=== PATIENT | female | born 1965 | race Two or more races ===

== ENCOUNTER 2021-03-12 15:58 | Outpatient (REF) | payer MEDICAID, SELFPAY ==
--- NOTE | ~2021-03-12 | MM_ITS ---
EXAMINATION: MM SCREENING DIGITAL BREAST TOMOSYNTHESIS, BILATERAL CLINICAL INFORMATION: Screening. Asymptomatic. The lifetime risk of breast cancer based on the Tyrer-Cuzick Model is 14%. COMPARISON: Mammography: 01/25/2020, 04/14/2017, 09/20/2016, 09/20/2016 TECHNIQUE: Digital breast tomosynthesis is performed in both the craniocaudal and mediolateral oblique views along with computer-aided detection (CAD). Synthesized 2D images are generated from the tomosynthesis. Additional bilateral CC views are provided. FINDINGS: There are scattered areas of fibroglandular density (ACR BI-RADS breast composition Category b). There are no significant masses, abnormal calcifications, or other abnormalities. Parenchymal pattern is similar to prior exams. No developing density. No significant changes. MM/MM tomosynthesis screening BI IMPRESSION: No significant changes from prior exams. ASSESSMENT: BI-RADS 1: Negative RECOMMENDATION: Routine annual mammography screening. This patient's information was entered into a reminder system with a target due date for their next mammogram.
== END 2021-03-12 15:59 | disposition home or self-care (01) ==
LOC: HO.MAMMO 15:58
PROVIDERS: PCP Internal Medicine; Visit Provider Internal Medicine
DX: Z12.31 Encounter for screening mammogram for malignant neoplasm of breast (principal)
CPT/HCPCS: 77063; 77067

== ENCOUNTER 2021-04-08 14:30 | Outpatient (RCR) | payer MEDICAID, SELFPAY ==
[2021-04-01 15:44] VITALS: BP 122/80; PULSE 83; O2SAT 95
--- NOTE | 2021-05-12 14:05 | MHC.PT.DC ---
[facility] [place] Office [place] Office [place] Office [address] Lance Yanes [address] [phone] F: [phone] F: [phone] F: [phone] F: [phone] Physical Therapy Discharge Report Diagnosis: This is a 56 yo female presenting to skilled PT with a script for vertigo. Date of Surgery: Date of Evaluation: 04/01/21 Date of Discharge: 05/12/21 Treatments to Date: 3 Cancellations to Date: 0 No Shows to Date: 0 Discharge Status: Discharge Summary: 04/08: Patient without any symptoms or nystagmus with canal reassessment. She reports good balance. Educated her to cancel next appointment if symptoms do not return again. Kept chart open for 30 days and then DC'd. Electronically signed by: Ellie Alvarez PT Please sign and return to therapist. Thank you for your referral.
== END 2021-05-12 14:04 | disposition home or self-care (01) ==
LOC: HO.PTCHIC 14:30
PROVIDERS: PCP Internal Medicine; Visit Provider Internal Medicine
DX: H81.13 Benign paroxysmal vertigo, bilateral (principal)
CPT/HCPCS: 95992; 97161

== ENCOUNTER 2021-07-29 09:37 | Outpatient (REF) | payer MEDICAID, SELFPAY ==
--- NOTE | ~2021-07-29 | XR_ITS ---
EXAMINATION: XR LUMBOSACRAL SPINE CLINICAL INFORMATION: Low back pain and left-sided sciatica. COMPARISON: None. TECHNIQUE: 3 views of the lumbosacral spine. FINDINGS: There is mild curvature of the lumbosacral spine to the right. Bone alignment is otherwise normal. Disc spaces are normal. There is lower lumbar spine facet arthritis. There is mild atherosclerotic calcification. XR/XR lumbar spine 2-3V IMPRESSION: Mild curvature of the lower lumbar spine to the right and facet arthritis.
== END 2021-07-29 09:38 | disposition home or self-care (01) ==
LOC: HO.XRAY 09:37
PROVIDERS: PCP Internal Medicine; Visit Provider Nurse Practitioner
DX: M54.42 Lumbago with sciatica, left side (principal)
CPT/HCPCS: 72100

== ENCOUNTER 2022-03-23 07:32 | Outpatient (REF) | payer MEDICAID, SELFPAY ==
--- NOTE | ~2022-03-23 | MM_ITS ---
EXAMINATION: MM SCREENING DIGITAL BREAST TOMOSYNTHESIS, BILATERAL CLINICAL INFORMATION: Screening. Asymptomatic. The lifetime risk of breast cancer based on the Tyrer-Cuzick Model is 14%. COMPARISON: Mammography: March 12, 2021 and studies dating back to April 08, 2014 TECHNIQUE: Digital breast tomosynthesis is performed in both the craniocaudal and mediolateral oblique views along with computer-aided detection (CAD). Synthesized 2D images are generated from the tomosynthesis. FINDINGS: There are scattered areas of fibroglandular density (ACR BI-RADS breast composition Category b). There are no significant masses, abnormal calcifications, or other abnormalities. MM/MM tomosynthesis screening BI IMPRESSION: No significant changes from prior exam. ASSESSMENT: BI-RADS 1: Negative RECOMMENDATION: Routine annual mammography screening. This patient's information was entered into a reminder system with a target due date for their next mammogram.
== END 2022-03-23 07:33 | disposition home or self-care (01) ==
LOC: HO.MAMMO 07:32
PROVIDERS: PCP Internal Medicine; Visit Provider Family Medicine
DX: Z12.31 Encounter for screening mammogram for malignant neoplasm of breast (principal)
CPT/HCPCS: 77063; 77067

== ENCOUNTER → 2022-04-21 10:13 | Outpatient (BNVA) | payer MEDICAID, SELFPAY | PROVIDERS: PCP Internal Medicine; Visit Provider Surgery | DX: K64.9 Unspecified hemorrhoids (principal); Z80.3 Family history of malignant neoplasm of breast | CPT/HCPCS: 46600; 99202 ==

== ENCOUNTER 2023-02-23 12:59 | Emergency (ER) | payer MEDICAID, SELFPAY ==
--- NOTE | ~2023-02-23 | XR_ITS ---
EXAMINATION: XR CHEST CLINICAL INFORMATION: Unremarkable. COMPARISON: None available. TECHNIQUE: Frontal view of the chest was obtained. FINDINGS: No significant abnormality is noted involving the heart, lungs, mediastinum, bony thorax or soft tissues. XR/XR chest 1V IMPRESSION: No acute cardiopulmonary process.
--- NOTE | 2023-02-23 13:01 | ECG_ITS ---
Test Reason : chest pain Blood Pressure : / mmHG Vent. Rate : 063 BPM Atrial Rate : 063 BPM P-R Int : 132 ms QRS Dur : 086 ms QT Int : 418 ms P-R-T Axes : 051 016 040 degrees QTc Int : 427 ms Normal sinus rhythm Normal ECG No previous ECGs available Referred By: Generic ED Physician Electronically Signed By:WANDA CONNER
[2023-02-23 13:44] VITALS: BP 125/81; PULSE 66; RESP 18; TEMP 36.8; O2SAT 99; BMI 29.5
--- NOTE | 2023-02-23 13:50 | ED.CHESTPAIN ---
HPI - Chest Pain General Chief Complaint: Chest Pain Stated Complaint: Chest Pain Time Seen by Provider: 02/23/23 16:09 Source: patient Mode of arrival: ambulatory Limitations: no limitations History of Present Illness HPI narrative: Patient is a 57-year-old female who presents emergency department for evaluation of chest pain and dizziness. Patient reports few days ago she was bending forward to lift a box when she suddenly developed a mild pain to the left anterior chest. This eventually resolved. This morning at 0600, she was again bending forward to lift up a been when she developed sudden onset of severe her squeezing type of pain to the left anterior chest. She then became dizzy and nauseous as well. The dizziness has improved at this time, she does report a history of vertigo but states that this felt different. Pain is still present at this time, reportedly 8/10, made worse with deep breathing and movement of the right arm. She denies any headache, neck pain, jaw pain, shortness of breath, difficulty breathing, vomiting, abdominal pain numbness or tingling of her extremities. Denies any URI symptoms. Related Data Home Medications Medication Instructions Recorded Confirmed atorvastatin 40 mg tablet 40 mg PO DAILY 04/21/22 04/21/22 dulaglutide 1.5 mg/0.5 mL 1.5 mg subcut QWEEK 04/21/22 04/21/22 subcutaneous pen injector ([facility]) metformin 1,000 mg tablet 1,000 mg PO 04/21/22 04/21/22 Allergies Allergy/AdvReac Type Severity Reaction Status Date / Time No Known Allergies Allergy Verified 02/23/23 13:44 [No Known Allergies*] Review of Systems Review of Systems: Constitutional : No Weight loss, No Fever, No Chills ENT/Mouth :? No sore throat, No Rhinorrhea Eyes: No Eye Pain, No Swelling Cardiovascular : pos Chest Pain, no SOB, no Dyspnea on Exertion, No Orthopnea, No Edema, No Palpitations Respiratory : No Cough, No Sputum Gastrointestinal : pos Nausea, No Vomiting, No Diarrhea, No abdominal Pain, No Hematochezia, No Melena Genitourinary : No Dysuria, No Urinary Frequency Musculoskeletal : No joint pain, No Myalgias, No Joint Swelling Skin : No Skin Lesions, No rash Neuro : No Weakness, No Numbness, No Dizziness, No Headache Psych : No Anxiety/Panic, No Depression Heme/Lymph: No Bruising, No Lymphadenopathy Endocrine : No Polyuria, No Polydipsia Yes all other systems are reviewed and are negative [facility] Past Medical History Attestation statement: The following information was validated with the patient. Source: old records reviewed Medical History Bleeding hemorrhoids Diabetes mellitus Family history of breast cancer Family History Family History (Updated 04/21/22 @ 10:22 by Anca Avila PATIENT TRANSPORT OFFICER) Mother Diabetes Social History Social History Alcohol intake: never Patient Tobacco Use Status: Former Tobacco user Tobacco use type: Cigarette Cigarettes Per Day: 2 Years Smoked: 39 Smoked in Last 30 Days: No Use of substances other than those prescribed or required for medical reasons: No Advance Directives: No Advance Directives Information Provided: No Patient : No Physical Exam Vital Signs: Vital Signs: Last Vital Signs Temp 97.5 F 02/23/23 17:32 Pulse 58 02/23/23 17:32 Resp 15 02/23/23 17:32 BP 125/76 02/23/23 17:32 Pulse Ox 97 02/23/23 17:32 O2 Del Method Room Air 02/23/23 17:32 BMI result Body Mass Index 29.5 Appearance: Alert.?Oriented to person, place and time. No acute distress.?Normal affect. Eyes: Pupils equal, round and reactive to light.? ENT: Pharynx normal.?? Neck: Normal inspection.? Neck supple.?? CVS: Heart sounds normal. Normal heart rate and rhythm.? Pulses normal.?? Respiratory: No respiratory distress.? Lung sounds clear to auscultation bilaterally?? Abdomen: Soft and non-tender. Normoactive bowel sounds. No pulsatile mass.?? Skin: Skin warm and dry.? Normal skin color.? Normal skin turgor.?? Extremities: No lower extremity edema.? No calf ttp? Neuro: Moves all extremities spontaneously. Sensation intact bilaterally. CN II-XII intact. No focal neuro deficits. Ambulates with normal steady gait. Course Course Course Narrative: RME: 57-year-old female with past medical history of diabetes complaining of sharp chest pain, nausea, dizziness since 06:00AM. Denies SOB/fever Ambulating with steady gait EKG, labs, CXR ordered Full HPI, ROS and PE to be performed by primary ED provider. Reevaluation(s) Reevaluation #1: CBC reveals no evidence of leukocytosis or anemia. CMP is overall unremarkable. Troponin <2.7, EKG revealing a normal sinus rhythm without acute ischemic findings, although given her history of diabetes, will obtain delta troponin to exclude ACS. BNP 50, chest x-ray without acute cardiopulmonary process, no pulmonary congestion, pneumonia, or infiltrate. Time: 16:13 Reevaluation #2: Delta troponin negative, unlikely ACS. Symptoms likely musculoskeletal in nature At this time stable for discharge, outpatient follow-up with primary care provider. Discussed worrisome signs and symptoms that would warrant re-evaluation emergency department. All questions answered.. Time: 19:06 Medications Administered Discontinued Medications Generic Name Dose Route Start Last Admin Trade Name Freq PRN Reason Stop Dose Admin Aspirin 324 mg 02/23/23 16:39 02/23/23 16:48 Aspirin 81 Mg Tab.Chew PO 02/23/23 16:40 324 mg ONCE ONE Administration Medical Decision Making Medical Decision Making [facility] Narrative: Patient is a 57-year-old female with past medical history diabetes, hyperlipidemia presenting to emergency department for evaluation of chest pain as per HPI. At the time of my examination she is overall well-appearing, nontoxic, afebrile. Pain is reproducible. Will obtain CBC to evaluate for leukocytosis/ anemia, CMP and lipase to evaluate for abnormal electrolytes /abnormal renal function/ abnormal hepatic/biliary function, EKG and troponin to evaluate for ischemia/ACS. Chest x-ray to evaluate for consolidation/ infiltrate/ mass/ pulmonary congestion and patient received aspirin 324 mg p.o. Differential Diagnosis Differential Diagnoses: The differential diagnosis associated with the presentation includes (ACS, costochondritis, muscular strain, PERC negative unlikely pulmonary embolism, pneumonia) Admission/Observation Consideration of admission/observation: Escalation of care including admission/observation considered (I considered admission for chest pain, see course narrative for further detail) Lab Data [facility] Lab Attestation statement: I reviewed the patient's lab results. (See course narrative for further detail) 02/23/23 14:01 02/23/23 14:01 Labs: Lab Results 02/23/23 02/23/23 02/23/23 Range/Units 14:01 14:01 14:01 WBC 8.0 (4.8-10.8) X10*3/uL RBC 5.18 (4.20-5.50) X10*6/uL Hgb 14.5 (12.0-16.0) g/dl Hct 44.8 (37.0-47.0) % MCV 86.5 (80.0-98.0) fL MCH 28.0 (27.0-33.0) pg MCHC 32.4 (31.0-35.0) g/dl RDW 13.3 (11.0-16.0) % Plt Count 291 (160-400) X10*3/uL MPV 10.3 (9.4-12.3) fL Immature Gran % (Auto) 0.3 (0.0-0.4) % Neut % (Auto) 53.4 (45-73) % Lymph % (Auto) 40.2 H (20-40) % Routt % (Auto) 5.3 (2-11) % Eos % (Auto) 0.4 (0-4) % Baso % (Auto) 0.4 (0-2) % Lymph # (Auto) 3.2 (1.2-4.9) X10*3/uL [place] # (Auto) 0.4 (0.1-1.2) X10*3/uL Eos # (Auto) 0.0 (0.0-0.4) X10*3/uL Baso # (Auto) 0.0 (0.0-0.2) X10*3/uL Abs Immat Gran (auto) 0.02 (0.00-0.03) X10*3/uL Absolute Neuts (auto) 4.3 (2.0-8.3) x10*3/uL Absolute Nucleated RBC 0.000 (0.0-0.012) X10*3/uL Nucleated RBC % (auto) 0.0 (0.0-0.2) /100WBC PT 11.8 (11.1-13.3) SEC INR 1.0 (0.9-1.1) Sodium 142 (135-145) mmol/L Potassium 3.9 (3.3-5.1) mmol/L Chloride 106 (96-108) mmol/L Carbon Dioxide 29 (22-29) mmol/L Anion Gap 11 L (12-20) BUN 9 (9-16) mg/dL Creatinine 0.79 (0.5-1.4) mg/dL Estim Creat Clear Calc 78.3 Estimated GFR > 60 Random Glucose 138 H (60-115) mg/dL Calcium 9.8 (8.4-10.2) mg/dL Magnesium 2.2 (1.6-2.6) mg/dL Total Bilirubin 0.4 (0.0-1.0) mg/dL Direct Bilirubin 0.2 (0.0-0.5) mg/dL AST 21 (5-31) U/L ALT 23 (0-31) U/L Alkaline Phosphatase 98 (39-117) U/L Troponin I High Sens (<3.5-17.0) ng/L B-Natriuretic Peptide (<100) pg/mL Total Protein 7.8 (6.5-8.0) g/dL Albumin 4.1 (3.5-5.0) g/dL Urine Color Urine Appearance Urine pH (5.0-9.0) Ur Specific [place] (1.005-1.025) Urine Protein (Neg-Trace) mg/dL Urine Glucose (UA) (Negative) mg/dL Urine Ketones (Negative) mg/dL Urine Blood (Negative) Urine Nitrite (Negative) Ur Leukocyte Esterase (Negative) 02/23/23 02/23/23 02/23/23 Range/Units 14:01 14:01 14:01 WBC (4.8-10.8) X10*3/uL RBC (4.20-5.50) X10*6/uL Hgb (12.0-16.0) g/dl Hct (37.0-47.0) % MCV (80.0-98.0) fL MCH (27.0-33.0) pg MCHC (31.0-35.0) g/dl RDW (11.0-16.0) % Plt Count (160-400) X10*3/uL MPV (9.4-12.3) fL Immature Gran % (Auto) (0.0-0.4) % Neut % (Auto) (45-73) % Lymph % (Auto) (20-40) % Routt % (Auto) (2-11) % Eos % (Auto) (0-4) % Baso % (Auto) (0-2) % Lymph # (Auto) (1.2-4.9) X10*3/uL Routt # (Auto) (0.1-1.2) X10*3/uL Eos # (Auto) (0.0-0.4) X10*3/uL Baso # (Auto) (0.0-0.2) X10*3/uL Abs Immat Gran (auto) (0.00-0.03) X10*3/uL Absolute Neuts (auto) (2.0-8.3) x10*3/uL Absolute Nucleated RBC (0.0-0.012) X10*3/uL Nucleated RBC % (auto) (0.0-0.2) /100WBC PT (11.1-13.3) SEC INR (0.9-1.1) Sodium (135-145) mmol/L Potassium (3.3-5.1) mmol/L Chloride (96-108) mmol/L Carbon Dioxide (22-29) mmol/L Anion Gap (12-20) BUN (9-16) mg/dL Creatinine (0.5-1.4) mg/dL Estim Creat Clear Calc Estimated GFR Random Glucose (60-115) mg/dL Calcium (8.4-10.2) mg/dL Magnesium (1.6-2.6) mg/dL Total Bilirubin (0.0-1.0) mg/dL Direct Bilirubin (0.0-0.5) mg/dL AST (5-31) U/L ALT (0-31) U/L Alkaline Phosphatase (39-117) U/L Troponin I High Sens < 2.7 (<3.5-17.0) ng/L B-Natriuretic Peptide 50 (<100) pg/mL Total Protein (6.5-8.0) g/dL Albumin (3.5-5.0) g/dL Urine Color Yellow Urine Appearance Clear Urine pH 7.0 (5.0-9.0) Ur Specific [place] 1.010 (1.005-1.025) Urine Protein Negative (Neg-Trace) mg/dL Urine Glucose (UA) Negative (Negative) mg/dL Urine Ketones Negative (Negative) mg/dL Urine Blood Negative (Negative) Urine Nitrite Negative (Negative) Ur Leukocyte Esterase Negative (Negative) 02/23/23 Range/Units 17:17 WBC (4.8-10.8) X10*3/uL RBC (4.20-5.50) X10*6/uL Hgb (12.0-16.0) g/dl Hct (37.0-47.0) % MCV (80.0-98.0) fL MCH (27.0-33.0) pg MCHC (31.0-35.0) g/dl RDW (11.0-16.0) % Plt Count (160-400) X10*3/uL MPV (9.4-12.3) fL Immature Gran % (Auto) (0.0-0.4) % Neut % (Auto) (45-73) % Lymph % (Auto) (20-40) % Routt % (Auto) (2-11) % Eos % (Auto) (0-4) % Baso % (Auto) (0-2) % Lymph # (Auto) (1.2-4.9) X10*3/uL Routt # (Auto) (0.1-1.2) X10*3/uL Eos # (Auto) (0.0-0.4) X10*3/uL Baso # (Auto) (0.0-0.2) X10*3/uL Abs Immat Gran (auto) (0.00-0.03) X10*3/uL Absolute Neuts (auto) (2.0-8.3) x10*3/uL Absolute Nucleated RBC (0.0-0.012) X10*3/uL Nucleated RBC % (auto) (0.0-0.2) /100WBC PT (11.1-13.3) SEC INR (0.9-1.1) Sodium (135-145) mmol/L Potassium (3.3-5.1) mmol/L Chloride (96-108) mmol/L Carbon Dioxide (22-29) mmol/L Anion Gap (12-20) BUN (9-16) mg/dL Creatinine (0.5-1.4) mg/dL Estim Creat Clear Calc Estimated GFR Random Glucose (60-115) mg/dL Calcium (8.4-10.2) mg/dL Magnesium (1.6-2.6) mg/dL Total Bilirubin (0.0-1.0) mg/dL Direct Bilirubin (0.0-0.5) mg/dL AST (5-31) U/L ALT (0-31) U/L Alkaline Phosphatase (39-117) U/L Troponin I High Sens < 2.7 (<3.5-17.0) ng/L B-Natriuretic Peptide (<100) pg/mL Total Protein (6.5-8.0) g/dL Albumin (3.5-5.0) g/dL Urine Color Urine Appearance Urine pH (5.0-9.0) Ur Specific [place] (1.005-1.025) Urine Protein (Neg-Trace) mg/dL Urine Glucose (UA) (Negative) mg/dL Urine Ketones (Negative) mg/dL Urine Blood (Negative) Urine Nitrite (Negative) Ur Leukocyte Esterase (Negative) Independent Interpretation I performed an independent interpretation of an: EKG and Plain X-Ray (I have personally interpreted chest x-ray and agree with radiologist impression, no acute cardiopulmonary process) Interpretation: Rate: 63 Rhythm:? Normal sinus rhythm [place]:? Normal Normal P waves.? Normal RICA.?? Normal QRS complex.?? ST T wave :??No ST elevation, no ST depression, no T-wave inversion qTC: 427 prior studies:? No prior available for review The study has been interpreted contemporaneously by me. Radiology Impression Discussion of test interpretation with radiology: I have reviewed the radiologist's reading. Radiologist Impression: XR/XR chest 1V IMPRESSION: No acute cardiopulmonary process. Discharge Plan Discharge Clinical Impression: Chest pain Patient Disposition: Home, Self-Care Instructions: Costochondritis (ED), Chest Pain (ED) Additional Instructions: You can take ibuprofen 200 mg, 3 tablets (600mg) every 6-8 hours as needed for pain, in addition to Tylenol 500 mg, 2 tablets (1,000mg) every 4-6 hours as needed for pain, but not to exceed 3 doses daily (3,000mg).? Contact your primary care provider and arrange for a follow-up visit within the next 3 days. Return back to emergency department any new or worsening symptoms or concerns. Prescriptions: No Action metformin 1,000 mg tablet 1,000 mg PO atorvastatin 40 mg tablet 40 mg PO DAILY Trulicity 1.5 mg/0.5 mL pen injector 1.5 mg subcut QWEEK Referrals: Ho Lopez MD [Primary Care Provider] -
[2023-02-23 14:08] LABS: MANUAL DIFF FLAG NO
[2023-02-23 14:10] LABS: Appearance Urine Clear; Color Urine Yellow; Glucose Urine UA Negative (Negative); Leukocyte Esterase Urine Negative (Negative); Nitrite Urine Negative (Negative); Urine Blood Negative (Negative); Urine Ketones Negative (Negative); Urine Protein Negative (Neg-Trace)
[2023-02-23 14:14] LABS: Basophils Percent Auto 0.4 % (0-2); Eosinophils Percent Auto 0.4 % (0-4); Hematocrit 44.8 % (37.0-47.0); Hemoglobin 14.5 g/dl (12.0-16.0); Imm Gran Abs Auto 0.02 X10*3/uL (0.00-0.03); Imm Gran Pct Auto 0.3 % (0.0-0.4); Lymphocytes Absolute Auto 3.2 X10*3/uL (1.2-4.9); Lymphocytes Percent Auto 40.2 % (20-40); Mean Corpuscular HGB Conc 32.4 g/dl (31.0-35.0); Mean Corpuscular Volume 86.5 fL (80.0-98.0); Mean Platelet Volume 10.3 fL (9.4-12.3); Monocytes Absolute Auto 0.4 X10*3/uL (0.1-1.2); Monocytes Percent Auto 5.3 % (2-11); Neutrophils Absolute Auto 4.3 x10*3/uL (2.0-8.3); Neutrophils Percent Auto 53.4 % (45-73); Platelet Count 291 X10*3/uL (160-400); Red Blood Count 5.18 X10*6/uL (4.20-5.50); Red Cell Distribution Width 13.3 % (11.0-16.0)
[2023-02-23 14:23] LABS: Prothrombin Time 11.8 SEC (11.1-13.3)
[2023-02-23 14:28] LABS: Alanine Aminotransferase 23 U/L (0-31); Albumin Level 4.1 g/dL (3.5-5.0); Alkaline Phosphatase 98 U/L (39-117); Anion Gap 11 (12-20); Aspartate Amino Transferase 21 U/L (5-31); Bilirubin Direct 0.2 mg/dL (0.0-0.5); Bilirubin Total 0.4 mg/dL (0.0-1.0); Blood Urea Nitrogen 9 mg/dL (9-16); Calcium 9.8 mg/dL (8.4-10.2); Carbon Dioxide 29 mmol/L (22-29); Chloride 106 mmol/L (96-108); Creatinine Clr Calc Pharmacy 78.3; Estimated Glomerular Filt Rate > 60; Glucose Random 138 mg/dL (60-115); Magnesium 2.2 mg/dL (1.6-2.6); Potassium 3.9 mmol/L (3.3-5.1); Sodium 142 mmol/L (135-145); Total Protein 7.8 g/dL (6.5-8.0)
[2023-02-23 14:33] LABS: B Type Natriuretic Peptide 50 pg/mL (<100)
[2023-02-23 14:51] LABS: Troponin-I High Sensitivity < 2.7 ng/L (<3.5-17.0)
[2023-02-23 15:50] VITALS: BP 125/74; PULSE 62; RESP 16; O2SAT 96
[2023-02-23 15:52] VITALS: BP 119/71; BP 128/78; PULSE 59; PULSE 60; PULSE 66
[2023-02-23 16:26] VITALS: BP 117/75; PULSE 59; RESP 16; TEMP 36.6; O2SAT 98
--- NOTE | 2023-02-23 16:33 | PC.NURSE ---
pt a&ox3, vss, nsr/borderline sinus patrick on the youth nutritional monitor. pt verbalizing 8/10 pain in the left chest wall. pt verbalizes that pain radiates towards LUE. pt states symptoms began two days ago but symptoms worsened when she lifted boxes that wear full of heavy material. provider bedside stating repeat troponin level around 5 - will redraw lab around that time. pt resting comfortably in no apparent distress. call nagel placed within reach. will continue to monitor.
[2023-02-23] MEDS: Aspirin 81 MG TAB.CHEW 324 MG PO (16:48)
--- NOTE | 2023-02-23 16:50 | PC.NURSE ---
medication administered per provider order.
[2023-02-23 17:32] VITALS: BP 125/76; PULSE 58; PULSE 59; RESP 15; TEMP 36.4; O2SAT 97
[2023-02-23 17:49] LABS: Troponin-I High Sensitivity < 2.7 ng/L (<3.5-17.0)
--- NOTE | 2023-02-23 17:51 | PC.NURSE ---
pt remains c/o chest pain though verbalizes decrased after ASA dose. VSS. talking well. no obseved distress. no SOB/OE/vomiting. reports mild nausea. aox4. calm, coop.
[2023-02-23 19:14] VITALS: BP 122/78; PULSE 56; RESP 17; O2SAT 97
== END 2023-02-23 19:20 | disposition home or self-care (01) ==
PROVIDERS: Nurse Practitioner Family; Physician Assistant; Emergency Provider Emergency Medicine; PCP Internal Medicine
DX: R07.9 Chest pain, unspecified (principal); R42 Dizziness and giddiness; R11.0 Nausea; F17.210 Nicotine dependence, cigarettes, uncomplicated; Z79.899 Other long term (current) drug therapy; E11.9 Type 2 diabetes mellitus without complications; E78.5 Hyperlipidemia, unspecified; Z79.84 Long term (current) use of oral hypoglycemic drugs; Z79.85 Long-term (current) use of injectable non-insulin antidiabetic drugs
CPT/HCPCS: 36415; 71045; 80048; 80076; 81003; 83735; 83880; 84484; 85025; 85610; 93005; 99283; 99285

== ENCOUNTER 2023-04-12 10:16 | Outpatient (REF) | payer MEDICAID, SELFPAY | END 2023-04-12 10:17 | disposition home or self-care (01) | LOC: HO.XRAY 10:16 | PROVIDERS: PCP Internal Medicine; Visit Provider Internal Medicine | DX: K59.01 Slow transit constipation (principal) | CPT/HCPCS: 74019 ==

== ENCOUNTER 2023-05-02 15:45 | Outpatient (REF) | payer MEDICAID, SELFPAY ==
[2023-05-02 18:26] LABS: Influenza A PCR NEGATIVE (Negative); Influenza B PCR NEGATIVE (Negative); Resp Syncy Virus RNA Qual PCR NEGATIVE (Negative); SARS COV2 PCR INHOUSE NEGATIVE (Negative)
== END 2023-05-02 15:46 | disposition home or self-care (01) ==
LOC: HO.CHCLNP 15:45
PROVIDERS: Visit Provider Registered Nurse
DX: B34.9 Viral infection, unspecified (principal); Z11.52 Encounter for screening for COVID-19
CPT/HCPCS: 0241U

== ENCOUNTER 2023-06-13 10:37 | Outpatient (REF) | payer MEDICAID, SELFPAY ==
[2023-06-13 14:41] LABS: MANUAL DIFF FLAG NO
[2023-06-13 14:53] LABS: Basophils Percent Auto 0.4 % (0-2); Eosinophils Percent Auto 0.4 % (0-4); Hemoglobin 14.1 g/dl (12.0-16.0); Imm Gran Abs Auto 0.04 X10*3/uL (0.00-0.03); Imm Gran Pct Auto 0.4 % (0.0-0.4); Lymphocytes Absolute Auto 2.8 X10*3/uL (1.2-4.9); Lymphocytes Percent Auto 28.4 % (20-40); Mean Corpuscular Hemoglobin 28.2 pg (27.0-33.0); Mean Platelet Volume 11.6 fL (9.4-12.3); Monocytes Absolute Auto 0.5 X10*3/uL (0.1-1.2); Neutrophils Absolute Auto 6.5 x10*3/uL (2.0-8.3); Neutrophils Percent Auto 65.4 % (45-73); Platelet Count 290 X10*3/uL (160-400); Red Cell Distribution Width 13.3 % (11.0-16.0)
== END 2023-06-13 10:38 | disposition home or self-care (01) ==
LOC: HO.CHCLDS 10:37
PROVIDERS: Visit Provider Internal Medicine
DX: R11.0 Nausea (principal); B34.9 Viral infection, unspecified
CPT/HCPCS: 36415; 85025

== ENCOUNTER 2023-06-28 | Outpatient (REF) | payer MEDICAID, SELFPAY ==
[2023-07-02 08:58] LABS: HPV mRNA E6/E7 rflx Not Detected (Not Detected)
== END 2023-06-28 00:01 ==
LOC: HO.CHCLNP
PROVIDERS: Visit Provider Advanced Practice Midwife
DX: Z12.4 Encounter for screening for malignant neoplasm of cervix (principal); Z11.51 Encounter for screening for human papillomavirus (HPV)
CPT/HCPCS: 87624; 88142

== ENCOUNTER 2024-01-24 08:10 | Outpatient (REF) | payer MEDICAID, SELFPAY ==
[2024-01-24 14:03] LABS: MANUAL DIFF FLAG NO
[2024-01-24 14:15] LABS: Basophils Absolute Auto 0.1 X10*3/uL (0.0-0.2); Basophils Percent Auto 0.5 % (0-2); Eosinophils Absolute Auto 0.1 X10*3/uL (0.0-0.4); Eosinophils Percent Auto 0.5 % (0-4); Hematocrit 48.9 % (37.0-47.0); Hemoglobin 15.9 g/dl (12.0-16.0); Imm Gran Abs Auto 0.03 X10*3/uL (0.00-0.03); Imm Gran Pct Auto 0.3 % (0.0-0.4); Lymphocytes Absolute Auto 3.2 X10*3/uL (1.2-4.9); Lymphocytes Percent Auto 34.1 % (20-40); Mean Corpuscular HGB Conc 32.5 g/dl (31.0-35.0); Mean Corpuscular Hemoglobin 28.3 pg (27.0-33.0); Mean Corpuscular Volume 87.2 fL (80.0-98.0); Mean Platelet Volume 11.1 fL (9.4-12.3); Monocytes Absolute Auto 0.5 X10*3/uL (0.1-1.2); Monocytes Percent Auto 5.2 % (2-11); Neutrophils Absolute Auto 5.5 x10*3/uL (2.0-8.3); Neutrophils Percent Auto 59.4 % (45-73); Platelet Count 297 X10*3/uL (160-400); Red Blood Count 5.61 X10*6/uL (4.20-5.50); Red Cell Distribution Width 12.7 % (11.0-16.0); White Blood Count 9.3 X10*3/uL (4.8-10.8)
[2024-01-24 14:32] LABS: Microalbum/Creatinine Ratio Ur 66.5 ug/mg cr (<30)
[2024-01-24 14:34] LABS: Hemoglobin A1c % > 14.0 % (<6.0)
[2024-01-24 14:47] LABS: Alanine Aminotransferase 37 U/L (0-31); Albumin Level 4.4 g/dL (3.5-5.0); Alkaline Phosphatase 130 U/L (39-117); Anion Gap 16 (12-20); Aspartate Amino Transferase 20 U/L (5-31); Bilirubin Total 0.5 mg/dL (0.0-1.0); Blood Urea Nitrogen 15 mg/dL (9-16); Carbon Dioxide 25 mmol/L (22-29); Chloride 99 mmol/L (96-108); Cholesterol 321 mg/dL (<200); Estimated Glomerular Filt Rate > 60; Glucose Random 391 mg/dL (60-115); HDL Cholesterol 50 mg/dL (>40); LDL Cholesterol Calculated 219 mg/dL (<100); Potassium 4.3 mmol/L (3.3-5.1); Sodium 136 mmol/L (135-145); Total Protein 8.2 g/dL (6.5-8.0); Triglycerides 264 mg/dL (<150)
[2024-01-25 04:28] LABS: HIV AB/AG Nonreactive (Nonreactive); HIV Num 1 0.06 S/CO (0.00-0.99); ~HepC Num1 0.19 S/CO (0.00-0.79); ~Hepatitis C Antibody Nonreactive (Nonreactive)
== END 2024-01-24 08:11 | disposition home or self-care (01) ==
LOC: HO.CHCLDS 08:10
PROVIDERS: Visit Provider Internal Medicine
DX: E11.9 Type 2 diabetes mellitus without complications (principal); Z79.4 Long term (current) use of insulin
CPT/HCPCS: 36415; 80053; 80061; 82043; 82570; 83036; 85025; 86803; 87389

== ENCOUNTER 2024-02-15 16:09 | Outpatient (REF) | payer MEDICAID, SELFPAY ==
[2024-02-15 18:00] LABS: Erythrocyte Sedimentation Rate 8 MM/HR (0-20)
[2024-02-16 17:39] LABS: Lyme Abs Screen <0.90 index
== END 2024-02-15 16:10 | disposition home or self-care (01) ==
LOC: HO.LAB 16:09
PROVIDERS: PCP Internal Medicine; Visit Provider Psychiatry & Neurology Neurology
DX: G43.919 Migraine, unspecified, intractable, without status migrainosus (principal)
CPT/HCPCS: 36415; 85652; 86617; 86618

== ENCOUNTER 2024-06-14 15:55 | Outpatient (REF) | payer MEDICAID, SELFPAY ==
[2024-06-14 17:32] LABS: MANUAL DIFF FLAG NO
[2024-06-14 17:51] LABS: Basophils Percent Auto 0.3 % (0-2); Eosinophils Absolute Auto 0.1 X10*3/uL (0.0-0.4); Eosinophils Percent Auto 0.6 % (0-4); Hematocrit 42.1 % (37.0-47.0); Hemoglobin 13.6 g/dl (12.0-16.0); Imm Gran Abs Auto 0.03 X10*3/uL (0.00-0.03); Imm Gran Pct Auto 0.3 % (0.0-0.4); Lymphocytes Absolute Auto 2.4 X10*3/uL (1.2-4.9); Lymphocytes Percent Auto 23.7 % (20-40); Mean Corpuscular HGB Conc 32.3 g/dl (31.0-35.0); Mean Corpuscular Hemoglobin 28.2 pg (27.0-33.0); Mean Corpuscular Volume 87.3 fL (80.0-98.0); Mean Platelet Volume 10.2 fL (9.4-12.3); Monocytes Absolute Auto 0.8 X10*3/uL (0.1-1.2); Monocytes Percent Auto 8.3 % (2-11); Neutrophils Absolute Auto 6.6 x10*3/uL (2.0-8.3); Neutrophils Percent Auto 66.8 % (45-73); Platelet Count 263 X10*3/uL (160-400); Red Blood Count 4.82 X10*6/uL (4.20-5.50); Red Cell Distribution Width 12.5 % (11.0-16.0); White Blood Count 9.9 X10*3/uL (4.8-10.8)
== END 2024-06-14 15:56 | disposition home or self-care (01) ==
LOC: HO.CHCLDS 15:55
PROVIDERS: Visit Provider Internal Medicine
DX: R05.1 Acute cough (principal)
CPT/HCPCS: 36415; 85025

== ENCOUNTER 2024-06-15 10:46 | Outpatient (REF) | payer MEDICAID, SELFPAY ==
--- NOTE | ~2024-06-15 | XR_ITS ---
EXAMINATION: XR CHEST CLINICAL INFORMATION: worsening cough x the last 4 days. COMPARISON: CXR on 02/23/23 TECHNIQUE: 2 views of the chest were obtained. FINDINGS: No significant abnormality is noted involving the heart, lungs, mediastinum, bony thorax or soft tissues. XR/XR chest 2V IMPRESSION: Unremarkable examination. Electronically signed by: Lyssa Parikh MD 06/15/2024 03:25 PM EDDIE
== END 2024-06-15 10:47 | disposition home or self-care (01) ==
LOC: HO.XRAY 10:46
PROVIDERS: PCP Internal Medicine; Visit Provider Internal Medicine
DX: R05.1 Acute cough (principal)
CPT/HCPCS: 71046

== ENCOUNTER 2024-06-25 14:46 | Outpatient (AMB) | payer MEDICAID, SELFPAY ==
[2024-06-25 14:52] VITALS: BP 106/68; PULSE 80; O2SAT 96; BMI 29.8
--- NOTE | 2024-06-25 14:52 | A.OFFVIS_ITS ---
Vital Signs 06/25/24 14:52 Height 5 ft 3 in Weight 168 lb 6.931 oz BMI 29.8 BP 106/68 Blood Pressure Location Rt brachial Position Sitting Pulse 80 Pulse Source Pulse Oximeter Pulse Oximetry (%) 96 Oxygen Delivery Method Room Air Intake Visit Reasons: N/V Intake Note: NEW PATIENT Shawanda presents in office today for a scheduled initial assessment / consult. Prior hx of colo/egd? [place] w/ Dr. Franklin 2015. Meds and Allergies reviewed? Y Any significant concerns or questions? N+V. Pt states that they are not having any difficulties with reflux w/ omeprazole current dose. No attempted treatments for sx at this time. Pharmacy verified? [email or web address] Required: No Allergies No Known Allergies [No Known Allergies*] Allergy (Verified 06/25/24 14:54) HPI Comments Details: 59 y.o F with hx of DM, who is here for intermittent abd pain, N,V. Reports started noticing diffuse abd pain with feeling of fullness almost 6 months ago. Has occ abd bloating as well. This is post prandial. Once the episode begins it lasts at least 2-3 days. This was around the time when she had suboptimal control of DM with A1c of 14, as well as around the time GLP was started. Reports sugars are better contolled now with range under 180. Has not had sx in the past 1 week. [facility] Medical History Family history of breast cancer Bleeding hemorrhoids Diabetes mellitus Family History Mother Diabetes Social History Alcohol intake: never Patient Tobacco Use Status: Former Tobacco user Tobacco use type: Cigarette Cigarettes Per Day: 2 Years Smoked: 39 Review of Systems Const All systems reviewed & are unremarkable except as noted in HPI and below Physical Exam Vital Signs: Last Vital Signs Pulse 80 06/25/24 14:52 BP 106/68 06/25/24 14:52 Pulse Ox 96 06/25/24 14:52 Oxygen Delivery Method Room Air 06/25/24 14:52 BMI result Body Mass Index 29.8 No apparent distress Nonicteric Abdomen soft, nondistended Alert and oriented x3, normal gait Assessment & Plan Assessment & Plan (1) Nausea & vomiting: Code(s): R11.2 - Nausea with vomiting, unspecified Category: Medical (2) Diabetes mellitus: Code(s): E11.9 - Type 2 diabetes mellitus without complications Category: Medical (3) Abdominal pain: Code(s): R10.9 - Unspecified abdominal pain Category: Medical Plan Discussed with the pt that likely 2/2 combination of delayed gastric emptying from increased blood sugars and s/e from starting the GLP. Other Ddx include gastritis, gastroparesis, PUD, symptomatic gallstones. Plan: - Reassured the effect of GLP should improve with time - N/V has already improved which is promising - US ABd - Barium swallow - Labs as below - Cont ppi - Improve glycemic control - A1c ordered Follow up 2-3 months Orders: Orders Immunoglobulin A Today R11.2 - Nausea with vomiting, unspecified FL barium swallow Today R11.2 - Nausea with vomiting, unspecified Hemoglobin A1c Today R11.2 - Nausea with vomiting, unspecified Transglutaminase IgA Today R11.2 - Nausea with vomiting, unspecified TSH reflex Free T4 Today R11.2 - Nausea with vomiting, unspecified US abdomen complete Today R10.9 - Unspecified abdominal pain, R11.2 - Nausea with vomiting, unspecified Coding Level of Care Code New Pt Level 4 (99343) Diagnoses Nausea & vomiting R11.2 Diabetes mellitus E11.9 Abdominal pain R10.9
== END 2024-06-27 09:27 | disposition home or self-care (01) ==
PROVIDERS: PCP Internal Medicine; Visit Provider Internal Medicine
DX: R11.2 Nausea with vomiting, unspecified (principal); E11.9 Type 2 diabetes mellitus without complications; R10.9 Unspecified abdominal pain
CPT/HCPCS: 99204

== ENCOUNTER 2024-06-25 14:46 | Outpatient (REF) | payer MEDICAID, SELFPAY ==
[2024-06-25 16:13] LABS: Estimated Average Glucose 283 mg/dL; Hemoglobin A1C 374.9309 umol/L; Hemoglobin A1c % 11.5 % (<6.0); Total Hemoglobin (HGBA1C) 3673.5875 umol/L
[2024-06-25 17:24] LABS: TSH reflex Free T4 4.23 uIU/mL (0.32-4.0)
[2024-06-26 21:59] LABS: Transglutaminase IgA <1.0 U/mL
[2024-06-30 23:18] LABS: Immunoglobulin A 618 mg/dL (47-310)
== END 2024-06-25 14:47 | disposition home or self-care (01) ==
LOC: HO.LAB 14:46
PROVIDERS: PCP Internal Medicine; Visit Provider Internal Medicine
DX: R11.2 Nausea with vomiting, unspecified (principal); E11.9 Type 2 diabetes mellitus without complications; R10.9 Unspecified abdominal pain
CPT/HCPCS: 36415; 82784; 83036; 84439; 84443; 86364; 99202

== ENCOUNTER 2024-06-27 08:32 | Outpatient (REF) | payer MEDICAID, SELFPAY ==
--- NOTE | ~2024-06-27 | FL_ITS ---
EXAMINATION: XR FLUOROSCOPY UPPER GI WITH AIR CLINICAL INFORMATION: Nausea. Abdominal pain. COMPARISON: None TECHNIQUE: Fluoroscopic air contrast upper GI examination was performed utilizing standard techniques with thin and thick barium and effervescent granules. Numerous spot images were obtained. FINDINGS: Dual and single contrast images of the esophagus demonstrate a normal caliber and contour. There is a granular appearance of the esophageal mucosa, suggestive of esophagitis. No strictures, masses, or ulcerations are seen. Esophageal peristalsis was normal. A very small type I hiatal hernia is present. No significant gastroesophageal reflux was seen during the course of the examination and on reflux views. Dual contrast and single contrast images of the stomach demonstrated a normal contour. The areae gastrica have a thickened/prominent appearance, suggestive of gastritis. No masses or ulcerations are identified. Contrast freely passed into the gastric antrum and duodenal bulb without delay. Single and air-contrast images of the duodenal bulb demonstrate no abnormality. The duodenal sweep has a normal appearance, course, and mucosal fold appearance. The imaged proximal jejunum has a normal fold pattern and caliber. FLUOROSCOPY TIME: 2 minutes 50 seconds Number of Spot Images: 7 Number of Cine: 10 DOSE AREA PRODUCT: 2094 uGy-m2 (microgray-meter squared) FL/FL barium swallow with air IMPRESSION: 1. Granular appearance of the esophageal mucosa, suggestive of esophagitis. 2. Very small type I hiatal hernia. 3. Prominent/thickened appearance of the areae gastricae, suggestive of gastritis. This procedure was performed by Collins Sesay PA-C, and supervised by Dr. Woody Electronically signed by: Brandon Woody MD 06/27/2024 04:31 PM [facility]
== END 2024-06-27 08:33 | disposition home or self-care (01) ==
LOC: HO.XRAY 08:32
PROVIDERS: PCP Internal Medicine; Visit Provider Internal Medicine
DX: R11.2 Nausea with vomiting, unspecified (principal)
CPT/HCPCS: 74221

== ENCOUNTER → 2024-06-27 08:34 | Outpatient (BNV) | payer MEDICAID, SELFPAY | PROVIDERS: PCP Internal Medicine; Visit Provider Physician Assistant Surgical | DX: R11.0 Nausea (principal); R10.9 Unspecified abdominal pain; K44.9 Diaphragmatic hernia without obstruction or gangrene; K29.70 Gastritis, unspecified, without bleeding | CPT/HCPCS: 74221 ==

== ENCOUNTER 2024-07-10 09:23 | Outpatient (REF) | payer MEDICAID, SELFPAY | END 2024-07-10 09:24 | disposition home or self-care (01) | LOC: HO.MAMMO 09:23 | PROVIDERS: PCP Internal Medicine; Visit Provider Internal Medicine | DX: Z12.31 Encounter for screening mammogram for malignant neoplasm of breast (principal) | CPT/HCPCS: 77063; 77067 ==

== ENCOUNTER → 2024-07-10 09:45 | Outpatient (BNV) | payer MEDICAID, SELFPAY | PROVIDERS: PCP Internal Medicine; Visit Provider Internal Medicine | DX: Z12.31 Encounter for screening mammogram for malignant neoplasm of breast (principal) | CPT/HCPCS: 77063; 77067 ==

== ENCOUNTER 2024-07-17 09:39 | Outpatient (REF) | payer MEDICAID, SELFPAY ==
--- NOTE | ~2024-07-17 | US_ITS ---
CLINICAL HISTORY: R10.9 - Unspecified abdominal pain Ultrasound of the abdomen Comparison: None Findings: The liver is normal in size, measuring 15.5cm. Increased echogenicity without focal lesions. Normal flow is visualized within the portal vein. No intrahepatic biliary ductal dilatation. No cholelithiasis. There is comet tail artifact. No gallbladder wall thickening or pericholecystic fluid. Negative Ulrich's sign. The common bile duct is normal, measuring 0.4cm. Unremarkable limited evaluation of the pancreas. The right kidney is normal in echogenicity and size, measuring 10.1cm. No nephrolithiasis or hydronephrosis. The left kidney is normal echogenicity and size, measuring 9.9cm. No nephrolithiasis or hydronephrosis. The spleen is without focal lesions and normal in size, measuring 9.4cm. The aorta and IVC are unremarkable. No ascites. Impression: Increased echogenicity of the liver likely indicates hepatic steatosis. Gallbladder adenomyomatosis. This document has been electronically signed by: Richelle Bishop MD on 07/18/2024 21:27:47
== END 2024-07-17 09:40 | disposition home or self-care (01) ==
LOC: HO.HMGCX 09:39
PROVIDERS: PCP Internal Medicine; Visit Provider Internal Medicine
DX: R10.9 Unspecified abdominal pain (principal); R11.2 Nausea with vomiting, unspecified
CPT/HCPCS: 76700

== ENCOUNTER → 2024-07-17 09:44 | Outpatient (BNV) | payer MEDICAID, SELFPAY | PROVIDERS: PCP Internal Medicine; Visit Provider Radiology Diagnostic Radiology | DX: R10.9 Unspecified abdominal pain (principal) | CPT/HCPCS: 76700 ==

== ENCOUNTER 2024-09-19 14:48 | Outpatient (AMB) | payer MEDICAID, SELFPAY ==
--- NOTE | 2024-09-19 14:57 | A.OFFVIS_ITS ---
Vital Signs 09/19/24 15:00 Height 5 ft 3 in Weight 167 lb 8.821 oz BMI 29.7 BP 101/63 Blood Pressure Location Lt brachial Position Sitting Pulse 81 Intake Visit Reasons: 3 month follow up Intake Note: Shawanda presents in the office as a 3 month follow up. CC: She states that she is not having any concerns at this time. [employer] Developer Required: No Allergies No Known Allergies [No Known Allergies*] Allergy (Verified 09/19/24 15:03) HPI Comments Details: 59 y.o F with hx of DM, who is here for intermittent abd pain, N,V. Reports started noticing diffuse abd pain with feeling of fullness almost 6 months ago. Has occ abd bloating as well. This is post prandial. Once the episode begins it lasts at least 2-3 days. This was around the time when she had suboptimal control of DM with A1c of 14, as well as around the time GLP was started. Reports sugars are better contolled now with range under 180. Has not had sx in the past 1 week. 09/19/24: Here for follow up. Has changed diet by switching to smaller portions and cutting out simple sugars. A1c still 11.5. On ozempic, jardiance, glipizide. On lowest dose ozempic due to side effects. Abd pain is better. No vomiting. Occ nauseous talia when she is constipated on the days she takes the shot. Barium swallow results and US results were already reviewed with the pt. She is taking omeprazole 20 BID for esophagitis. [facility] Medical History Family history of breast cancer Bleeding hemorrhoids Diabetes mellitus Family History Mother Diabetes Social History Alcohol intake: never Patient Tobacco Use Status: Former Tobacco user Tobacco use type: Cigarette Cigarettes Per Day: 2 Years Smoked: 39 Review of Systems Const All systems reviewed & are unremarkable except as noted in HPI and below Physical Exam Vital Signs: Last Vital Signs Pulse 81 09/19/24 15:00 BP 101/63 09/19/24 15:00 BMI result Body Mass Index 29.7 No apparent distress Nonicteric Abdomen soft, nondistended Alert and oriented x3, normal gait Results Reviewed Results Reviewed: US Abd 07/18/24: -Increased echogenicity of the liver likely indicates hepatic steatosis. -Gallbladder adenomyomatosis. Barium swallow 06/27/24: 1. Granular appearance of the esophageal mucosa, suggestive of esophagitis. 2. Very small type I hiatal hernia. 3. Prominent/thickened appearance of the areae gastricae, suggestive of gastritis. Assessment & Plan Assessment & Plan (1) Nausea & vomiting: Code(s): R11.2 - Nausea with vomiting, unspecified Category: Medical (2) Diabetes mellitus: Code(s): E11.9 - Type 2 diabetes mellitus without complications Category: Medical (3) Abdominal pain: Code(s): R10.9 - Unspecified abdominal pain Category: Medical (4) Colon cancer screening: Code(s): Z12.11 - Encounter for screening for malignant neoplasm of colon Category: Medical (5) Gallbladder polyp: Code(s): K82.4 - Cholesterolosis of gallbladder Category: Medical (6) Esophagitis: Code(s): K20.90 - Esophagitis, unspecified without bleeding Category: Medical Plan 1. Upper GI sx: Discussed with the pt that likely 2/2 combination of delayed gastric emptying from increased blood sugars and s/e from starting the GLP. Improving with dietary modifications. Also has esophagitis based on barium swallow. Plan: - Reassured the effect of GLP should improve with time - Improve glycemic control - A1c goal 7 or less. - Artist[employer] Model appt coming up for further discussion of dietary modifications - Cont double dose omeprazole - EGD to be booked - If continues to have sx can consider trial of motegrity down the line 2. CRC screening: Last colo [address] Franklin. Next due 2025. Follow up 6 months Medications: Changed From omeprazole 20 mg PO BID To omeprazole 20 mg PO BID 180 caps 1RF 90 days Coding Level of Care Code Est Pt Level 4 (88614) Diagnoses Nausea & vomiting R11.2 Diabetes mellitus E11.9 Abdominal pain R10.9 Colon cancer screening Z12.11 Gallbladder polyp K82.4 Esophagitis K20.90
[2024-09-19 15:00] VITALS: BP 101/63; PULSE 81; BMI 29.7
--- OUTSIDE RECORDS SUMMARY | 2024-09-19 17:26 | XMS_ITS | Encounter Summary ---
Author Organization [employer] Address [address] [facility] 7t [place] [address] Care Team Providers Care Cda Teacher Name Role Phone Ho Lopez MD Primary Care Prov ider Encounter Details Date Type Department Care Team ([facility] st Contact Info) Description 05/19/2023 Orders Only [facility] CHC MED & PEDS [address] [facility] [place] [address] Ho Lopez MD 505 [facility] [place] [address] Social History Tobacco Use Types Packs/Day Years Used Date Smoking Tobacco: Every Day Cigarettes Passive Smoke Exposure: Never Smokeless Tobacco: Never Alcohol Use Standard Drinks/Week Comments Never 0 (1 standard drink = 0.6 oz pur e alcohol) Depression Answer Date Recorded Patient Health Questionnaire-9 Score 4 08/18/2022 Housing Stability Answer Date Recorded What is your housing situation today? I have kaya leslie 04/28/[address] you li ve. Do you have problems with any of the following? None of the above 04/28/2023 Food Insecurity Answer Date Recorded Within the past 12 months, y ou worried that your food would run out before you got money to buy more: Never True 04/28/2023 Within the past 12 months,th e food you bought just didn't last and you didn't have enough money to get more: Never True Transportation Answer Date Recorded In the past 12 months, has l ack of transportation kept you from medical appts, meetings, work or from getting things needed for daily living? No 04/28/2023 Utilities Answer Date Recorded In the past 12 months, has t he electric, gas, oil or water company threatened to shut off services in your home? No 04/28/2023 Depression Answer Date Recorded Patient Health Questionnaire-2 Score 4 08/18/2022 Comments Unknown Sex and Gender Information Value Date Recorded Sex Assigned at Female 05/10/2022 10:27 AM EDT Legal Sex Female 10:27 AM EDT Gender Identity Female 05/10/2022 10:27 AM EDT Sexual Orientation Straight 05/10/2022 10 :27 AM EDT documented as of this encounter Plan of Treatment Upcoming Encounters Date Type Department Care Team (Late st Contact Info) Description 09/25/2024 9:30 AM EDT Medication Management [facility] MED & PEDS [address] [place], [place] [phone] Anna Gatica, PharmD [address] [place], [place] [phone] documented as of this encounter Visit Diagnoses Not on filedocumented in this encounter Additional Health Concerns Assessment Noted Time PHQ-9 Depression Total Score: 4 08/18/19 23 4:12 PM EST documented as of this encounter Care Teams Cda Teacher Relationship Specialty Start Date End Date Ho Lopez MD [address] [place], [place] [phone] PCP - General Internal Medicine 11/14/19 documented as of this encounter
--- OUTSIDE RECORDS SUMMARY | 2024-09-19 17:26 | XMS_ITS | Encounter Summary ---
Author Organization [employer] Address [address] [facility] 7t [place] [address] Care Team Providers Care Digital Production Manager Name Role Phone Ho Lopez MD Primary Care Prov ider Reason for Visit * Reason Onset Date Comments Nurse Triage 05/22/2024 Encounter Details Date Type Department Care Team ([facility] st Contact Info) Description 05/22/2024 Telephone [facility] CHC MED & PEDS [address] [place] [address] Ho Lopez MD [address] [place], [place] [phone] Nurse Triage Social History Tobacco Use Types Packs/Day Years Used Date Smoking Tobacco: Former Passive Smoke Exposure: Never Smokeless Tobacco: Never Alcohol Use Standard Drinks/Week Comments Not Currently 0 (1 standard drink = 0.6 oz [...] Patient Health Questionnaire-2 Score 4 08/18/2022 Comments No Sex and Gender Information Value Date Recorded Sex Assigned at Female 05/10/2022 10:27 AM EDT Legal Sex Female 10:27 AM EDT Gender Identity Female 05/10/2022 10:27 AM EDT Sexual Orientation Straight 05/10/2022 10 :27 AM EDT documented as of this encounter Miscellaneous Notes * Telephone Encounter - Haylie Ratliff RN - 05/22/2024 10:20 AM EST Triage call Pt reports headache, abdominal cramping, LLQ which comes and goes, headache. Pt is neg for fever but, reports chills and tested neg for Covid. Pt is drinking adequate liquids and no diarrhea today but , had several watery stools yesterday. Pt is offered [facility] open till 8pm today. Pt agrees with disposition . Insurance is verified as active. Protocol Used: Diarrhea (Adult) Protocol-Based Disposition: See in Office or Video Visit within 3 Days Video visit not offered Positive Triage Questions: * Mild diarrhea (e.g., 1-3 or more stools than normal in past 24 hours) diarrhea and present > 7days (Exception: Chronic diarrhea that is not worse.) * Patient wants to be seen * All higher-acuity triage questions were negative Care Advice Discussed: * Fluid Therapy During Mild to Moderate Diarrhea * Telephone Encounter - Maida Awad - 05/22/2024 9:23 AM EST Symptom: Headache and abdominal pain Outcome: Schedule a same-day appointment or talk to a nurse or provider today Reason: Caller denied all higher acuity questions The caller accepted this outcome. documented in this encounter Plan of Treatment Upcoming Encounters Date Type Department Care Team (Late st Contact Info) Description 09/25/2024 9:30 AM EDT Medication Management [facility] MED & PEDS [address] [place] [address] Anna Gatica, PharmD [address] [place] [address] documented as of this encounter Visit Diagnoses Not on filedocumented in this encounter Additional Health Concerns Assessment Noted Time PHQ-9 Depression Total Score: 4 08/18/19 23 4:12 PM EST documented as of this encounter Care Teams Digital Production Manager Relationship Specialty Start Date End Date Ho Lopez MD [address] [place] [address] PCP - General Internal Medicine 11/14/19 documented as of this encounter
--- OUTSIDE RECORDS SUMMARY | 2024-09-19 17:26 | XMS_ITS | Encounter Summary ---
Author Organization [employer] Address [address] [place] [address] [facility] [place] [address] Care Team Providers Care Owner/Operator Name Role Phone Ho Lopez MD Primary Care Prov ider Reason for Referral * Consultation (Routine) - Authorized Specialty Diagnoses / Procedures Referred By Contlisa t Referred To Contact Pharmacy Diagnoses Type 2 diabetes mellitus without complication, with long-term current use of insulin (CMS/HCC) Ho Lopez MD [address] [place] [address] Phone: tel: fax: Referral ID Status Reason Start Date Expiration Date Visits Requested Visits Authorized [id number] Authorized Consult and Treat 08/24/2024 08/24/2025 6 6 Encounter Details Date Type Department Care Team (Late st Contact Info) Description 08/24/2024 Orders Only [facility] CHC MED & PEDS [address] [place] [address] Ho Lopez MD [address] [place], [place] [phone] Type 2 diabetes mellitus without complication, with long-term current use of insulin (CMS/HCC) (Primary Dx) Social History Tobacco Use Types Packs/Day Years [...] Description 09/25/2024 9:30 AM EDT Medication Management [facility] MED & PEDS [address] [place] [address] Anna Gatica, PharmD [address] [place] [address] Scheduled Referrals Name Type Priority Associated Diagnoses Orde r Schedule Referral to Pharmacy CDTM Outpatient Referral Routine Type 2 diabetes mellitus without complication, with long-term current use of insulin (CMS/HCC) Ordered: 08/24/2024 documented as of this encounter Visit Diagnoses Diagnosis Type 2 diabetes mellitus without complication, with long-term current use of insulin (CMS/HCC)- Primary documented in this encounter Additional Health Concerns Assessment Noted Time PHQ-9 Depression Total Score: 4 08/18/19 23 4:12 PM EST documented as of this encounter Care Teams Owner/Operator Relationship Specialty Start Date End Date Ho Lopez MD [address] [place] [id number] PCP - General Internal Medicine 11/14/19 documented as of this encounter
--- OUTSIDE RECORDS SUMMARY | 2024-09-19 17:26 | XMS_ITS | Clinical Summary ---
Author Organization [facility] Address [address] [place] [address] Care Team Providers Care Resource Room Teacher Name Role Phone Eloisa Moore PA-C Primary Care Provider [phone] Source Comments PLEASE NOTE, if this patient is a minor, it may be UNLAWFUL to discuss sensitive information that is contained in these records (such as FAMILY PLANNING, MENTAL HEALTH or SUBSTANCE ABUSE) with the minor patient's parent or other person without the patient's specific authorization.[facility] Allergies No known active allergies Medications cholecalciferol, vitamin D3, (VITAMIN D3) 50,000 unit capsuleIndication s:Vitamin D deficiency disease Take 1 Cap by mouth once a week. 8 Cap 3 09/14/19 14 Active oxybutynin (DITROPAN) 5 mg tabletIndications :bladder hyperactivity Take 1 Tab by mouth 2 (two) times daily as needed for incontinence. Indications: Bladder Hyperactivity 60 Tab 12 09/14/19 14 Active ascorbic acid (VITAMIN C) 250 mg tabletIndications :Diabetes mellitus type 2 in obese Take 1 Tab by mouth once daily. 30 Tab 12 09/14/19 14 Active metFORMIN (GLUCOPHAGE) 1,000 mg tabletIndications :Diabetes mellitus type 2 in obese Take 1 Tab by mouth 2 (two) times daily with a meal. 60 Tab 12 12/15/19 14 Active orphenadrine (NORFLEX ER) 100 mg 12 hr tabletIndications :Lumbalgia Take 1 Tab by mouth 2 (two) times daily. Swallow whole. Do not crush or chew. 40 Tab 2 07/24/19 15 Active meclizine (BONINE) 25 mg tabletIndications :vertigo Take 1 Tab by mouth 2 (two) times daily as needed for dizziness. Indications: Vertigo 60 Tab 12 09/21/19 15 Active diphenhydrAMINE (BENADRYL) 25 mg tabletIndications :Scabies Take 1 Tab by mouth nightly at bedtime as needed for allergies or itching. 30 Tab 0 10/30/19 15 Active omeprazole (PRILOSEC) [address] capsuleIndication s:Diabetes mellitus type 2 in obese Take 1 Cap by mouth every morning before breakfast. Do not crush or chew. 30 Cap 3 12/31/19 15 Active naproxen (NAPROSYN) 500 mg tablet Take 1 Tab by mouth 2 (two) times daily with a meal. 60 Tab 3 04/03/20 15 Active Active Problems Problem Noted Date Diagnosed Date Diabetes mellitus type 2 in obese 06/18/2013 Overview (06/18/2013): A1C: (Jun 2013): 7.4% (1st time Dx) LDL: 112 BUN and Creat:14 and 0.71 AST/ALT: wnl Subclinical hypothyroidism 06/18/2013 Overview (06/18/2013): Jun 2013: TSH: 5.58 FT4: 0.9 (NL) Lipid screening 06/18/2013 Overview (06/18/2013): Jun 2013: TChol: 184 T LDL: 112 (now DM so target 70) HDL: 54 Vitamin D deficiency 06/18/2013 Overview (06/18/2013): Jun 2013: Vit D 25 OH: 9 Obese 05/03/2013 Vertigo 05/02/2013 Overactive bladder 05/02/2013 Heartburn 05/02/2013 Anxiety 05/02/2013 Depression 05/02/2013 Overview (05/02/2013): Follows with psychiatry Immunizations Name Administration Dates Next Due INFLUENZA, SEASONAL, INJECTABLE, PRESERVATIVE FR EE 05/02/2013 Family History Medical History Relation Name Comments COPD Father Diabetes Father Heart Problems Father Kidney disease Father Cancer Maternal Aunt COPD Mother Diabetes Mother Heart Problems Mother Hypertension Mother Cancer Sister 1 breast Cancer Sister 2 ovarian Relation Name Status Comments Daughter 2 daughters Alive Father Maternal Aunt Mother Sister 1 Alive Sister 2 Alive Son 3 boys Alive Social History Tobacco Use Types Packs/Day Years Used Date Smoking Tobacco: Former Cigarettes 0 28 0 12/31/1982 - 12/31/2010 Alcohol Use Standard Drinks/Week Comments Not Asked 0 (1 standard drink = 0.6 oz pur e alcohol) Social Connections Answer Date Recorded Social Connections and Isolation 0 03/03/2019 Financial Resource Strain Answer Date R ecorded Financial Resource Strain 0 2018 Stress Answer Date Recorded Stress 0 03/03/2019 Physical Activity Answer Date Recorded Physical Activity 0 03/03/2019 Food Insecurity Answer Date Recorded Food 0 03/03/2019 Transportation Needs Answer Date Record ed Transportation 0 03/03/2019 Housing Stability Answer Date Recorded Housing 0 03/03/2019 Safety and Environment Answer Date [place] rded Safety 0 03/03/2019 Utilities Answer Date Recorded Utilities 0 03/03/2019 Employment Answer Date Recorded Employment 0 03/03/2019 Comments No Sex and Gender Information Value Date Recorded Sex Assigned at Not on file Legal Sex Female 11:11 AM PDT Gender Identity Not on file Sexual Orientation Not on file Last Filed Vital Signs Vital Sign Reading Time Taken Comments Blood Pressure 112/70 10/29/2014 3:14 PM EDT Pulse 84 10/29/2014 3:14 PM EDT Temperature 37 ??C (98.6 ??F) 10/29/2014 3:14 PM EDT Respiratory Rate 20 10/29/2014 3:14 PM EDT Oxygen Saturation - - Inhaled Oxygen Concentration - - Weight 97.1 kg (214 lb) 10/29/2014 3:14 PM EDT Height 160 cm (5' 3 ) 10/29/2014 3:14 PM EDT Body Mass Index 37.91 10/29/2014 3:14 PM EDT Plan of Treatment Not on file Insurance [facility] Member Subscriber Plan / Payer (Ef fective 2013-Present) Name:Shawanda Courtney Relation to Subscriber:Self Name:Shawanda Courtney Payer ID:[id number] Group ID:Not on file Type:Medicaid Address: [address] [address] Care Teams Resource Room Teacher Relationship Specialty Start Date End Date Eloisa Moore PA-C [facility] [place] [address] PCP - General 09/05/18
--- OUTSIDE RECORDS SUMMARY | 2024-09-19 17:26 | XMS_ITS | Encounter Summary ---
Author Organization [employer] Address [address] [facility] [address] [facility] [address] 7t [place] [address] Care Team Providers Care Speech Pathology Assistant Name Role Phone Ho Lopez MD Primary Care Prov ider Encounter Details Date Type Department Care Team (Late st Contact Info) Description 08/28/2024 Telephone [facility] MEDICINE [address] [place] [address] Ho Lopez MD [address] [place] [address] Social History Tobacco Use Types Packs/Day Years [...] encounter Miscellaneous Notes * Telephone Encounter - Alida Kerns - 08/28/2024 3:22 PM EST Pharmacy CHW attempted outreach call on 08/28/24 for CDTM - Diabetes appointment; however, unable to reach patient. LVM for patient to contact Alida Kerns at [phone]. documented in this encounter Plan of Treatment Upcoming Encounters Date Type Department Care Team (Late st Contact Info) Description 09/25/2024 9:30 AM EDT Medication Management [facility] MED & PEDS [address] [place], [place] [phone] Anna Gatica, PharmD [address] [place], [place] [phone] documented as of this encounter Visit Diagnoses Not on filedocumented in this encounter Additional Health Concerns Assessment Noted Time PHQ-9 Depression Total Score: 4 08/18/19 23 4:12 PM EST documented as of this encounter Care Teams Speech Pathology Assistant Relationship Specialty Start Date End Date Ho Lopez MD [address] [place], [place] [phone] PCP - General Internal Medicine 11/14/19 documented as of this encounter
--- OUTSIDE RECORDS SUMMARY | 2024-09-19 17:26 | XMS_ITS | Encounter Summary ---
Author Organization [employer] Address [address] [facility] [address] 7[address] [place] [address] Care Team Providers Care Automation Controls Engineer Name Role Phone Ho Lopez MD Primary Care Prov ider Reason for Visit * Reason Onset Date Comments Appointment Request 06/15/2023 Encounter Details Date Type Department Care Team ([facility] st Contact Info) Description 06/15/2023 Telephone [facility] MEDICINE [address] [place] [address] Ho Lopez MD [address] [place], [place] [phone] Appointment Request Social History Tobacco Use Types Packs/Day Years Used Date Smoking Tobacco: Every Day Cigarettes Passive Smoke Exposure: Never Smokeless Tobacco: Never Alcohol Use Standard Drinks/Week Comments Never 0 (1 standard drink = 0.6 oz pur e alcohol) Depression Answer Date Recorded Patient Health Questionnaire-9 Score 4 08/18/2022 Housing Stability Answer Date Recorded What is your housing situation today? I have kayajaime leslie 04/28/[address] you [...] encounter Miscellaneous Notes * Telephone Encounter - Josi Francis RN - 06/16/2023 10:35 AM EST Returned call to pt regarding message below. Pt states being told by PCP of need for PAP as no hx found in recent years of pt getting one done. Pt has no concerns and just needs a routine PAP. Pt agrees to appt on 06/28/23. * Telephone Encounter - Tramaine Peter - 06/15/2023 10:49 AM EST Tc from patient requesting a appt for PRIVATE SECRETARY please call patient to schedule appt. documented in this encounter Plan of Treatment Upcoming Encounters Date Type Department Care Team (Late st Contact Info) Description 09/25/2024 9:30 AM EDT Medication Management [facility] MED & PEDS [address] [place] [address] Anna Gatica, AnetteD [address] [place], [place] [phone] documented as of this encounter Visit Diagnoses Not on filedocumented in this encounter Additional Health Concerns Assessment Noted Time PHQ-9 Depression Total Score: 4 08/18/19 4:12 PM EST documented as of this encounter Care Teams Automation Controls Engineer Relationship Specialty Start Date End Date Ho Lopez MD [address] [place] [address] PCP - General Internal Medicine 11/14/19 documented as of this encounter
--- OUTSIDE RECORDS SUMMARY | 2024-09-19 17:26 | XMS_ITS | Encounter Summary ---
Author Organization [employer] Address [address] [facility] [address] 7[address] [place] [address] Care Team Providers Care V Block Saw Operator Name Role Phone Ho Lopez MD Primary Care Prov ider Encounter Details Date Type Department Care Team (Latest Contact Info) Description 09/03/2024 Outside Procedure [facility] [address] [place] [address] Eugenio, Marisa, OD [address] [place] [address] Presbyopia of both eyes (Primary Dx) Social History Tobacco Use Types [...] AM EDT documented as of this encounter Progress Notes * Marisa Becker OD - 09/03/2024 4:30 PM EST MH glasses were dispensed, 2 of 2. documented in this encounter Plan of Treatment Upcoming Encounters Date Type Department Care Team (Late st Contact Info) Description 09/25/2024 9:30 AM EDT Medication Management [facility] MED & PEDS 505 [place], [place] [phone] Anna Gatica PharmD [address] [place] [address] documented as of this encounter Visit Diagnoses Diagnosis Presbyopia of both eyes- Primary documented in this encounter Additional Health Concerns Assessment Noted Time PHQ-9 Depression Total Score: 4 08/18/19 23 4:12 PM EST documented as of this encounter Care Teams V Block Saw Operator Relationship Specialty Start Date End Date Ho Lopez MD [address] [place], [place] [phone] PCP - General Internal Medicine 11/14/19 documented as of this encounter
--- OUTSIDE RECORDS SUMMARY | 2024-09-19 17:26 | XMS_ITS | Encounter Summary ---
Author Organization [employer] Address [address] [facility] 7 [place] [address] Care Team Providers Care Pharmaceutical Operator Name Role Phone Ho Lopez MD Primary Care Prov ider Reason for Visit * Reason Comments Med Refill Encounter Details Date Type Department Care Team (Late Contact Info) Description 02/14/2023 Refill [facility] MEDICINE [address] [place] [address] Ho Lopez MD [address] [place], [place] [phone] Diabetes mellitus type 2 in obese (CMS/HCC) Social History Tobacco Use Types Packs/Day Years Used Date Smoking Tobacco: Never Passive Smoke Exposure: Never Alcohol Use Standard Drinks/Week Comments Never 0 (1 standard drink = 0.6 oz pur e alcohol) Depression Answer Date Recorded Patient Health Questionnaire-9 Score 4 08/18/2022 Depression Answer Date Recorded Patient Health Questionnaire-2 [...] Encounters Date Type Department Care Team (Late Contact Info) Description 09/25/2024 9:30 AM EDT Medication Management [facility] MED & PEDS 505 [place] [address] Anna Gatica, AnetteD [address] [place] [address] documented as of this encounter Visit Diagnoses Diagnosis Diabetes mellitus type 2 in obese Type II or unspecified type diabetes mellitus without mention of complication, not stated as uncontrolled documented in this encounter Additional Health Concerns Assessment Noted Time PHQ-9 Depression Total Score: 4 08/18/19 23 4:12 PM EST documented as of this encounter Care Teams Pharmaceutical Operator Relationship Specialty Start Date End Date Ho Lopez MD 505 [place] [address] PCP - General Internal Medicine 11/14/19 documented as of this encounter
--- OUTSIDE RECORDS SUMMARY | 2024-09-19 17:26 | XMS_ITS | Encounter Summary ---
Author Organization [employer] Address [address] [facility] [address] 7t [place] [address] Care Team Providers Care Livestock Farm Manager Name Role Phone Ho Lopez MD Primary Care Prov ider Reason for Visit * Reason Comments Med Refill Encounter Details Date Type Department Care Team (Late st Contact Info) Description 09/13/2024 Refill [facility] MEDICINE [address] [place] [address] Ho Lopez MD [address] [place], [place] [phone] Type 2 diabetes mellitus with obesity (CMS/HCC) ([facility]) Social History Tobacco Use Types Packs/Day Years [...] Description 09/25/2024 9:30 AM EDT Medication Management [facility] MED & PEDS [address] [place], [place] [phone] Anna Gatica PharmD [address] [place] [address] documented as of this encounter Visit Diagnoses Diagnosis Type 2 diabetes mellitus with obesity (CMS/HCC) (CMS/HCC) documented in this encounter Additional Health Concerns Assessment Noted Time PHQ-9 Depression Total Score: 4 08/18/19 23 4:12 PM EST documented as of this encounter Care Teams Livestock Farm Manager Relationship Specialty Start Date End Date Ho Lopez MD 505 [place], [place] [phone] PCP - General Internal Medicine 11/14/19 documented as of this encounter
--- OUTSIDE RECORDS SUMMARY | 2024-09-19 17:26 | XMS_ITS | Encounter Summary ---
Author Organization [email or web address] Address [address] [facility] [address] 7t [place] [address] Care Team Providers Care It Support Analyst Name Role Phone Ho Lopez MD Primary Care Prov ider Reason for Visit * Reason Comments Med Refill Encounter Details Date Type Department Care Team (Late st Contact Info) Description 12/17/2023 Refill [facility] MEDICINE [address] [place] [address] Ho Lopez MD [address] [place], [place] [phone] Social History Tobacco Use Types Packs/Day Years [...] 9:30 AM EDT Medication Management [facility] MED & PEDS [address] [place], [place] [phone] Anna Gatica, PharmD 230 [place] [address] documented as of this encounter Visit Diagnoses Not on filedocumented in this encounter Additional Health Concerns Assessment Noted Time PHQ-9 Depression Total Score: 4 08/18/19 23 4:12 PM EST documented as of this encounter Care Teams It Support Analyst Relationship Specialty Start Date End Date Ho Lopez MD 505 [place] [address] PCP - General Internal Medicine 11/14/19 documented as of this encounter
--- OUTSIDE RECORDS SUMMARY | 2024-09-19 17:26 | XMS_ITS | Encounter Summary ---
Author Organization [employer] Address [address] [facility] 7t [place] [address] Care Team Providers Care Semiconductor Processing Group Leader Name Role Phone Ho Lopez MD Primary Care Prov ider Reason for Visit * Reason Onset Date Comments Prior Authorization 12/15/2023 Encounter Details Date Type Department Care Team (Late st Contact Info) Description 12/15/2023 Telephone [facility] MEDICINE 230 [place] [address] Ho Lopez MD [address] [facility] [place] [address] Prior Authorization Social History Tobacco Use Types Packs/Day Years [...] encounter Miscellaneous Notes * Telephone Encounter - Kyree Nichole - 01/20/2024 10:50 AM EDT Tc from pt requesting status on PA for Ozempic medication, pt has been without medication for a while now and requested to see what is going on . Cloth Mercerizer Operator contact [facility] PA Specialist for help to see whatis being delayed, Pa specialist explained order will be submitted today but might be denied due to pt not doing recent lab work needed. Cloth Mercerizer Operator understood and explained it and relayed over to patient,pt understood and will be coming in to do labwork on Tuesday. * Telephone Encounter - Maureen Baum - 01/02/2024 10:34 AM EDT Tc from pt requesting for provider to prescribe trulicity again. Please contact pt at [phone] * Telephone Encounter - Tramaine Peter - 12/30/2023 12:21 PM EDT Tc from patient requesting status of PA of the medication below * Telephone Encounter - Teodora Hay LPN - 12/19/2023 10:44 AM EDT Please review message below & note for medication . Thank you * Telephone Encounter - Tramaine Peter - 12/15/2023 4:42 PM EDT Tc from patient calling to inform the provider that the medication semaglutide (Ozempic, 0.25 or 0.5 MG/DOSE,) 2 MG/1.5ML solution pen-injector requires a PA documented in this encounter Plan of Treatment Upcoming Encounters Date Type Department Care Team (Late st Contact Info) Description 09/25/2024 9:30 AM EDT Medication Management [facility] MED & PEDS [address] [place], [place] [phone] Anna Gatica, PharmD 230 [place] [address] documented as of this encounter Visit Diagnoses Not on filedocumented in this encounter Additional Health Concerns Assessment Noted Time PHQ-9 Depression Total Score: 4 08/18/19 23 4:12 PM EST documented as of this encounter Care Teams Semiconductor Processing Group Leader Relationship Specialty Start Date End Date Ho Lopez MD [address] [place], [place] [phone] PCP - General Internal Medicine 11/14/19 documented as of this encounter
--- OUTSIDE RECORDS SUMMARY | 2024-09-19 17:26 | XMS_ITS | Encounter Summary ---
Author Organization [employer] Address 75 [facility] 7t [place] [address] Care Team Providers Care Environmental Professional Name Role Phone Ho Lopez MD Primary Care Prov ider Reason for Visit * Reason Onset Date Comments Referral 06/20/2023 Encounter Details Date Type Department Care Team ([facility] st Contact Info) Description 06/20/2023 Telephone [facility] CHC MED & PEDS 505 [place] [address] Ho Lopez MD 505 [place] [address] Referral Social History Tobacco Use Types Packs/Day Years [...] encounter Miscellaneous Notes * Telephone Encounter - Maureen Baum - 07/07/2023 9:44 AM EST Tc from pt requesting status in regards to physical therapy referral. Please contact pt at [phone] * Telephone Encounter - Kate Rodriguez RN - 06/20/2023 5:24 PM EST TC placed to patient. Patient reports left sided knee pain and lower left back pain, continuing since patient fell at work on 06/08/23. Treating with ibuprofen, alternating heat and cold, and using one crutch for support when moving around if possible. Pain not well-controlled and interfering with ADLs. Patient requests appointment with PCP. Patient scheduled for this , 06/23/23 @ 3:[address] Kimble. Patient feels she may need physical therapy. Routing message to PCP for review. Tc from pt requesting a referral for physical therapy due to slip and fall at work. Location: [address] [place] [address] Marely Sanderson MA Date: n/a Time: n/a Specialty: ATI physical therapy DX: lower back and knee pain NEW Referral * Telephone Encounter - Maureen Baum - 06/20/2023 10:21 AM EST Tc from pt requesting a referral for physical therapy due to slip and fall at work. Location: [address] [place] [address] Marely Sanderson [place] Date: n/a Time: n/a Specialty: ATI physical therapy DX: lower back and knee pain NEW Referral documented in this encounter Plan of Treatment Upcoming Encounters Date Type Department Care Team (Late st Contact Info) Description 09/25/2024 9:30 AM EDT Medication Management [facility] MED & PEDS 505 [place] [address] Anna Gatica, PharmD 230 [place] [address] documented as of this encounter Visit Diagnoses Not on filedocumented in this encounter Additional Health Concerns Assessment Noted Time PHQ-9 Depression Total Score: 4 08/18/19 23 4:12 PM EST documented as of this encounter Care Teams Environmental Professional Relationship Specialty Start Date End Date Ho Lopez MD 505 [place] [address] PCP - General Internal Medicine 11/14/19 documented as of this encounter
--- OUTSIDE RECORDS SUMMARY | 2024-09-19 17:26 | XMS_ITS | Encounter Summary ---
Author Organization [employer] Address 75 [facility] 7t [place] [address] Care Team Providers Care Ice Cream Chef Name Role Phone Ho Lopez MD Primary Care Prov ider Encounter Details Date Type Department Care Team (Late Contact Info) Description 08/05/2022 Orders Only [facility] MEDICINE 230 [place] [address] Ho Lopez MD [address] [place] [address] Diabetes mellitus type 2 in obese (CMS/HCC) (Primary Dx) Social History Tobacco Use Types Packs/Day Years Used Date Smoking Tobacco: Former Cigarettes Passive Smoke Exposure: Never Alcohol Use Standard Drinks/Week Comments Never 0 (1 standard drink = 0.6 oz pur e alcohol) Comments Unknown Sex and Gender Information Value Date Recorded Sex Assigned at Female 05/10/2022 10:27 AM EDT Legal Sex Female 10:27 AM EDT Gender Identity Female 05/10/2022 10:27 AM EDT Sexual Orientation Straight 05/10/2022 10 :27 AM EDT COVID-19 Exposure Response Date Recorded In the last 10 days, have yo u been in contact with someone who was confirmed or suspected to have Coronavirus/COVID-19? No / Unsure 07/28/2022 1:48 PM EST documented as of this encounter Plan of Treatment Upcoming Encounters Date Type Department Care Team ([facility] Contact Info) Description 09/25/2024 9:30 AM EDT Medication Management [facility] MED & PEDS [address] [place] [address] Anna Gatica, PharmD [address] [place] [address] documented as of this encounter Procedures Procedure Name Priority Date/Time Associated Diagnosis Comments HIGH SENSITIVITY TROPONIN I Routine 02/23/2023 5:17 PM EDT Diabetes mellitus type 2 in obese (CMS/HCC) HIGH SENSITIVITY TROPONIN I Routine 02/23/2023 2:01 PM EDT Diabetes mellitus type 2 in obese (CMS/HCC) CBC WITH AUTO DIFFERENTIAL Routine 02/23/2023 2:01 PM EDT Diabetes mellitus type 2 in obese (CMS/HCC) URINALYSIS WITH REFLEX MICROSCOPIC Routine 02/23/2023 2:01 PM EDT Diabetes mellitus type 2 in obese (CMS/HCC) PROTHROMBIN TIME-INR Routine 02/23/2023 2:01 PM EDT Diabetes mellitus type 2 in obese (CMS/HCC) B TYPE NATRIURETIC PEPTIDE (BNP) Routine 02/23/2023 2:01 PM EDT Diabetes mellitus type 2 in obese (CMS/HCC) MAGNESIUM Routine 02/23/2023 2:01 PM EDT Diabetes mellitus type 2 in obese (CMS/HCC) HEPATIC FUNCTION PANEL Routine 02/23/2023 2:01 PM EDT Diabetes mellitus type 2 in obese (CMS/HCC) BASIC METABOLIC PANEL Routine 02/23/2023 2:01 PM EDT Diabetes mellitus type 2 in obese (CMS/HCC) documented in this encounter Results * High Sensitivity Troponin I (02/23/2023 5:17 PM EDT) TROPONIN I HIGH SENSITIVITY <2.7 <3.5 - 17.0 ng/L [facility] Comment:The [place]helps high sens itivity Troponin-I results should beused in conjunction with other diagnostic information suchas ECG, clinical observations and information, and patientsymptoms to aid in the diagnosis of AK. 02/23/2023 5:17 PM EDT 02/23/2023 5:21 PM EDT [facility] External Provider LAB BLO OD ORDERABLES Final Result Performing Organization Address [facility] Co de Phone Number [facility] [address] [place] [phone] * High Sensitivity Troponin I (02/23/2023 2:01 PM EDT) [facility] TROPONIN I HIGH SENSITIVITY <2.7 <3.5 - 17.0 ng/L [facility] Comment:The [place]helps high sens itivity Troponin-I results should beused in conjunction with other diagnostic information suchas ECG, clinical observations and information, and patientsymptoms to aid in the diagnosis of AK. 02/23/2023 2:01 PM EDT 02/23/2023 2:05 PM EDT [facility] External Provider LAB BLO OD ORDERABLES Final Result Performing Organization Address [facility] de Phone Number [facility] [address] [place] [phone] * B Type Natriuretic Peptide (BNP) (02/23/2023 2:01 PM EDT) Pathologist [facility] B Type Natriuretic Peptide 50 <100 pg/mL [facility] Comment:For those patients w ho are being treated with Natrecor(nesiritide, recombinant BNP), BNP testing should beperformed at least two hours post treatment in order toensure that only endogenous levels of BNP are detected. 02/23/2023 2:01 PM EDT 02/23/2023 2:05 PM EDT [facility] External Provider LAB BLO OD ORDERABLES Final Result Performing Organization Address City/[facility]/ZIP Co de Phone Number [facility] [address] [place] [address] [phone] * Magnesium (02/23/2023 2:01 PM EDT) Pathologist [facility] Magnesium 2.2 1.6 - 2.6 mg/dL [facility] 02/23/2023 2:01 PM EDT 02/23/2023 2:05 PM EDT us Generic External Data Provider LAB BLOOD ORDERAB LES Final Result Performing Organization Address [facility] Co de Phone Number [facility] [address] [place] [address] [phone] * (ABNORMAL) Basic Metabolic Panel (02/23/2023 2:01 PM EDT) Pathologist [facility] Sodium 142 135 - 145 mmol/L [facility] Potassium 3.9 3.3 - 5.1 mmol/L [facility] Chloride 106 96 - 108 mmol/L [facility] Carbon Dioxide 29 22 - 29 mmol/L [facility] Anion Gap 11(L) 12 - 20 [facility] Urea Nitrogen (BUN) 9 9 - 16 mg/dL [facility] Creatinine, Serum 0.79 0.5 - 1.4 mg/dL [facility] Creatinine Clr Calc Pharmacy 78.3 [facility] Comment:Provided height and weight: 160.02 cm,75.6 kg.eGFR (calculated from the MDRD study equation) and eCrCl(calculated from the Cockcroft-Gault equation) are based ondifferent parameters and may not yield comparable results.If eCrCl result is absurd, please check patient'sheight/weight. Estimated Glomerular Filt Rate >60 [facility] Comment:NOTE: For -Am erican individuals, multiply the result by 1.210.Chronic Kidney Disease: Estimated GFR < 60 mL/min/[id number] Kidney Disease: Estimated GFR < 15 mL/min/1.73m2 Glucose 138(H) 60 - 115 mg/dL [facility] Calcium 9.8 8.4 - 10.2 mg/dL [facility] 02/23/2023 2:01 PM EDT 02/23/2023 2:05 PM EDT Generic External Data Provider LAB BLOOD ORDERAB LES Final Result Performing Organization Address [facility] de Phone Number [facility] [address] [place] [phone] * Hepatic Function Panel (02/23/2023 2:01 PM EDT) Bilirubin, Total 0.4 0.0 - 1.0 mg/dL [facility] Bilirubin, Direct 0.2 0.0 - 0.5 mg/dL [facility] Aspartate Amino Transferase 21 5 - 31 U/L [facility] Alanine Aminotransferase 23 0 - 31 U/L [facility] Total Protein 7.8 6.5 - 8.0 g/dL [facility] Albumin Level 4.1 3.5 - 5.0 g/dL [facility] Alkaline Phosphatase 98 39 - 117 U/L [facility] 02/23/2023 2:01 PM EDT 02/23/2023 2:05 PM EDT [facility] External Provider LAB BLO OD ORDERABLES Final Result Performing Organization Address [facility] de Phone Number [facility] [address] [place] [phone] * Prothrombin Time-INR (02/23/2023 2:01 PM EDT) Prothrombin Time 11.8 11.1 - 13.3 SEC [facility] INTERNATIONAL NORM RATIO 1.0 0.9 - 1.1 [facility] Comment:INTERNATIONAL NORMAL IZED RATIO (INR) REFERENCE RANGES Reference RangeFor patients not on anticoagulant therapy: 0.9 - 1.1INR ranges for oral anticoagulanttherapy:For prevention and treatment of venous thrombosis and pulmonary embolism: 2.0 - 3.0For acute myocardial infarction with aspirin therapy: 2.0 - 3.0For acute myocardial infarction without aspirin therapy: 3.0 - 4.0For patients with mechanical prosthetic heart valves: 2.5 - 3.5 02/23/2023 2:01 PM EDT 02/23/2023 2:05 PM EDT us [facility] External Provider LAB BLO OD ORDERABLES Final Result [facility] [address] [place] [address] [phone] * (ABNORMAL) CBC auto differential (02/23/2023 2:01 PM EDT) White Blood Count 8.0 4.8 - 10.8 X10*3/uL [facility] Red Blood Count 5.18 4.20 - 5.50 X10*6/uL [facility] Hemoglobin 14.5 12.0 - 16.0 g/dl [facility] Hematocrit 44.8 37.0 - 47.0 % [facility] Mean Corpuscular Volume 86.5 80.0 - 98.0 fL [facility] Mean Corpuscular Hemoglobin 28.0 27.0 - 33.0 pg [facility] Mean Corpuscular HGB Conc 32.4 31.0 - 35.0 g/dl [facility] Red Cell Distribution Width 13.3 11.0 - 16.0 % [facility] Platelet Count 291 160 - 400 X10*3/uL [facility] Mean Platelet Volume 10.3 9.4 - 12.3 fL [facility] Neutrophils Percent Auto 53.4 45 - 73 % [facility] Imm Gran Pct Auto 0.3 0.0 - 0.4 % [facility] Lymphocytes Percent Auto 40.2(H) 20 - 40 % [facility] Monocytes Percent Auto 5.3 2 - 11 % [facility] Eosinophils Percent Auto 0.4 0 - 4 % [facility] Basophils Percent Auto 0.4 0 - 2 % [facility] NRBC Pct Auto 0.0 0.0 - 0.2 /100WBC [facility] Neutrophils Absolute Auto 4.3 2.0 - 8.3 x10*3/uL [facility] Imm Gran Abs Auto 0.02 0.00 - 0.03 X10*3/uL [facility] Lymphocytes Absolute Auto 3.2 1.2 - 4.9 X10*3/uL [facility] Monocytes Absolute Auto 0.4 0.1 - 1.2 X10*3/uL [facility] Eosinophils Absolute Auto 0.0 0.0 - 0.4 X10*3/uL [facility] Basophils Absolute Auto 0.0 0.0 - 0.2 X10*3/uL [facility] NRBC Abs Auto 0.000 0.0 - 0.012 X10*3/uL [facility] 02/23/2023 2:01 PM EDT 02/23/2023 2:05 PM EDT us [facility] External Provider LAB BLO OD ORDERABLES Final Result [facility] [address] [place] [phone] * Urinalysis w/reflex microscopic (02/23/2023 2:01 PM EDT) Color Urine Yellow [facility] Appearance Urine Clear [facility] PH 7.0 5.0 - 9.0 [facility] Glucose Urine UA Negative Negative mg/dL [facility] Urine Blood Negative Negative [facility] Specific [place] - Urine 1.010 1.005 - 1.025 [facility] Urine Protein Negative Neg-Trace mg/dL [facility] Urine Ketones Negative Negative mg/dL [facility] Nitrite Urine Negative Negative [facility] Leukocyte Esterase Urine Negative Negative [facility] 02/23/2023 2:01 PM EDT 02/23/2023 2:05 PM EDT Narrative [facility] - 02/23/2023 2:10 PM EDT [id number], Clean Catch [facility] External Provider LAB URI NE ORDERABLES Final Result [facility] [address] [place] [address] [phone] documented in this encounter Visit Diagnoses Diagnosis Diabetes mellitus type 2 in obese- Primary Type II or unspecified type diabetes mellitus without mention of complication, not stated as uncontrolled documented in this encounter Care Teams Ice Cream Chef Relationship Specialty Start Date End Date Ho Lopez MD [address] [place] [phone] PCP - General Internal Medicine 11/14/19 documented as of this encounter
--- OUTSIDE RECORDS SUMMARY | 2024-09-19 17:26 | XMS_ITS | Encounter Summary ---
Author Organization [employer] Address [address] [facility] 7t [place] [address] Care Team Providers Care New Patient Escort Name Role Phone Ho Lopez MD Primary Care Prov ider Encounter Details Date Type Department Care Team (Late st Contact Info) Description 02/24/2024 Orders Only [facility] [address] [place] [address] Provider, MD [place] Social History Tobacco Use Types Packs/Day Years [...] [facility] MED & PEDS [address] [place], [place] [phone] Anna Gatica, AnetteD [address] [place] [address] documented as of this encounter Procedures Procedure Name Priority Date/Time Associated Diagnosis Comments MRI BRAIN W WO CONTRAST Routine 02/23/2024 12:29 PM EDT documented in this encounter Results * MRI BRAIN W WO CONTRAST (02/23/2024 12:29 PM EDT) Anatomical Region Laterality Modality Magnetic Resonan ce Historical Provider MD ARTHUR MRI PROCEDURES Final Result documented in this encounter Visit Diagnoses Not on filedocumented in this encounter Additional Health Concerns Assessment Noted Time PHQ-9 Depression Total Score: 4 08/18/19 23 4:12 PM EST documented as of this encounter Care Teams New Patient Escort Relationship Specialty Start Date End Date Ho Lopez MD [address] [place] [address] PCP - General Internal Medicine 11/14/19 documented as of this encounter
--- OUTSIDE RECORDS SUMMARY | 2024-09-19 17:26 | XMS_ITS | Clinical Summary ---
Author Organization [facility] Address [address] [place] [address] Care Team Providers Care Certified Orthoptist Name Role Phone Beverley Walters MD Primary Care Provider [phone] Surgical History Surgery Date Site/Laterality Comments SECTION PROCEDURE: HISTORICAL DELIVERY; COMMENT: x 3 OTHER SURGICAL HISTORY PROCEDURE: ---- ANO-RECTAL ----; COMMENT: ?unsure Medical History Medical History Date Comments Diverticulitis 10/2015 DX:Diverticuliti s Diabetes (CMS/HCC) DX:Diabetes ( HCC) Hypertension DX:Hypertension GERD (gastroesophageal reflux disease) DX:GERD (gastroesophageal reflux disease) Smoker DX:Smoker Social History Tobacco Use Types Packs/Day Years Used Date Smoking Tobacco: Never Smokeless Tobacco: Never Alcohol Use Standard Drinks/Week Comments Yes 0 (1 standard drink = 0.6 oz pur e alcohol) Comments Unknown Sex and Gender Information Value Date Recorded Sex Assigned at Not on file Legal Sex Female 9:24 AM EST Gender Identity Not on file Sexual Orientation Not on file Obstetrics History Plan of Treatment Health Maintenance Due Date Last Done Comments Breast Cancer Screening 1967 Diabetes: Annual GFR (Glomer ular Filtration Rate) 1967 Diabetes: Annual Foot Exam 1977 Diabetes: Annual Retina Eye Exam 1977 DTaP,Tdap,and Td Vaccines (1 - Tdap) 1986 Hepatitis B Vaccines (1 of 3 - 19+ 3-dose series) 1986 Pneumococcal Vaccine: 50+ Ye ars (1 of 1 - PCV) 2017 Zoster Vaccines (1 of 2) 2017 Cholesterol Screening (Lipid Panel) 06/07/2022 Colorectal Cancer Screening: Colonoscopy 06/07/2022 Depression Screening 06/07/2022 HIV Screening 06/07/2022 Hepatitis C Screening 06/07/2022 Social Influencers of Health Screening 06/07/2022 Diabetes: Annual Urine Albumin-Creatinine Ratio (uACR) 06/26/2022 Diabetes: Blood Sugar Contro l Test (HGBA1C) 06/26/2022 Cervical Cancer Screening: P ap Smear 08/13/2022 08/13/2019 COVID-19 Vaccine (2023-2 5 season) 2024 Influenza Vaccine (#1) 2024 08/13/2019 HIB Vaccines Aged Out No longer eligi ble based on patient's age to complete this topic HPV Vaccines Aged Out No longer eligi ble based on patient's age to complete this topic Hepatitis A Vaccines Aged Out No long er eligible based on patient's age to complete this topic IPV Vaccines Aged Out No longer eligi ble based on patient's age to complete this topic MMR Vaccines Aged Out No longer eligi ble based on patient's age to complete this topic Meningococcal ACWY Vaccine Aged Out N o longer eligible based on patient's age to complete this topic Meningococcal B Vacine Aged Out No lo nger eligible based on patient's age to complete this topic Pneumococcal Vaccine: Pediat rics (0 to 5 Years) and At-Risk Patients (6 to 64 Years) Aged Out No longer eligi ble based on patient's age to complete this topic RSV Immunization Patients Un amos 20 months Aged Out No longer eligible b ased on patient's age to complete this topic Varicella Vaccines Aged Out No longer eligible based on patient's age to complete this topic Procedures Procedure Name Priority Date/Time Associated Diagnosis Comments PAP SMEAR Routine 08/13/2019 from Last 3 Months or Most Recently Relevant to Health Maintenance Results * Pap smear (08/13/2019) 08/13/2019 Narrative HISTORICAL TESTING LAB RESULTING AGENCY - 08/16/2019 11:51 AM EST [id number] THINPREP PAP, IMAGED: NEGATIVE FOR SQUAMOUS INTRAEPITHELIAL LESION AND MALIGNANCY . ROBER IS PRESENT. ASHLEY MATHEW(ASCP) (CASE ELECTRONICALLY SIGNED 08 16 2019) RESULT OF APTIMA HIGH RISK HPV ASSAY: HIGH RISK HPV: ??NEGATIVE (SEROTYPES 16,18,31,33,35,39,45,51,52,56,58,59,66,68) COMPLETED ON 2019-08-15 ADEQUACY: SATISFACTORY ENDOCERVICAL/TRANSFORMATION ZONE COMPONENT PRESENT. SOURCE: THINPREP PAP HPV ANY DX: ??REFLEX 16 AND 18, CERVICAL, IMAGED CLINICAL INFORMATION: HPV ANY DIAGNOSIS. [Z12.4, Z01.419] us Kenneth Mensah MD LAB CYTOLOGY ORDERABLES Final Result HISTORICAL TESTING LAB RESULTING AGENCY from Last 3 Months or Most Recently Relevant to Health Maintenance Care Teams Certified Orthoptist Relationship Specialty [place] [address] [place], [place] [phone] PCP - General Internal Medicine 07/11/15
--- OUTSIDE RECORDS SUMMARY | 2024-09-19 17:26 | XMS_ITS | Encounter Summary ---
Author Organization [employer] Address [address] [facility] [address] [place] [address] Care Team Providers Care Completion Manager Name Role Phone Ho Lopez MD Primary Care Prov ider Reason for Visit * Reason Comments Med Refill Encounter Details Date Type Department Care Team ([facility] st Contact Info) Description 04/30/2023 Refill [facility] MED & PEDS [address] [place] [address] Ho Lopez MD [address] [place] [address] Social History Tobacco Use Types Packs/Day Years [...] Description 09/25/2024 9:30 AM EDT Medication Management [facility] MED & PEDS [address] [place], [place] [phone] Anna Gatica PharmD [address] [place], [place] [phone] documented as of this encounter Visit Diagnoses Not on filedocumented in this encounter Additional Health Concerns Assessment Noted Time PHQ-9 Depression Total Score: 4 08/18/19 23 4:12 PM EST documented as of this encounter Care Teams Completion Manager Relationship Specialty Start Date End Date Ho Lopez MD [address] [place], [place] [phone] PCP - General Internal Medicine 11/14/19 documented as of this encounter
--- OUTSIDE RECORDS SUMMARY | 2024-09-19 17:26 | XMS_ITS | Encounter Summary ---
Author Organization [employer] Address [address] [facility] [address]t [place] [address] Care Team Providers Care Bindery Library Technical Assistant Name Role Phone Ho Lopez MD Primary Care Prov ider Encounter Details Date Type Department Care Team ([facility] st Contact Info) Description 01/20/2024 Orders Only [facility] CH[facility] MED & PEDS [address] [facility] [place] [address] Ho Lopez MD [address] [facility] [place] [address] Social History Tobacco Use Types Packs/Day Years [...] Description 09/25/2024 9:30 AM EDT Medication Management [facility] MED & PEDS [address] [place], [place] [phone] Anna Gatica, PharmD [address] [place] [address] documented as of this encounter Visit Diagnoses Not on filedocumented in this encounter Additional Health Concerns Assessment Noted Time PHQ-9 Depression Total Score: 4 08/18/19 23 4:12 PM EST documented as of this encounter Care Teams [employer] Technical Assistant Relationship Specialty Start Date End Date Ho Lopez MD [address] [place] [address] PCP - General Internal Medicine 11/14/19 documented as of this encounter
--- OUTSIDE RECORDS SUMMARY | 2024-09-19 17:26 | XMS_ITS | Encounter Summary ---
Author Organization [employer] Address [address] [place] [address] Care Team Providers Care Jet Engine Mechanic Name Role Phone Ho Lopez MD Primary Care Prov ider Encounter Details Date Type Department Care Team (Late st Contact Info) Description 08/31/2024 10:00 AM EST Office Visit [facility] OPTOMETRY [address] [place] [address] Eugenio, Marisa, OD [address] [place] [address] Hyperopia of both eyes (Primary Dx) Social History [...] Progress Notes * Marisa Becker OD - 08/31/2024 10:00 AM EST MH glasses were dispensed, 1 of 2. documented in this encounter Plan of Treatment Upcoming Encounters Date Type Department Care Team (Late st Contact Info) Description 09/25/2024 9:30 AM EDT Medication Management [facility] MED & PEDS [address] [place], [place] [phone] Anna Gatica PharmD [address] [place] [address] documented as of this encounter Visit Diagnoses Diagnosis Hyperopia of both eyes- Primary documented in this encounter Additional Health Concerns Assessment Noted Time PHQ-9 Depression Total Score: 4 08/18/19 23 4:12 PM EST documented as of this encounter Care Teams Jet Engine Mechanic Relationship Specialty Start Date End Date Ho Lopez MD [address] [place], [place] [phone] PCP - General Internal Medicine 11/14/19 documented as of this encounter
--- OUTSIDE RECORDS SUMMARY | 2024-09-19 17:26 | XMS_ITS | Encounter Summary ---
Author Organization [employer] Address [address] [facility] [address] [place] [address] Care Team Providers Care Customer Assistant Name Role Phone Ho Lopez MD Primary Care Prov ider Reason for Visit * Reason Comments Med Refill Encounter Details Date Type Department Care Team ([facility] st Contact Info) Description 11/13/[address] [facility] CHC MED & PEDS [address] [place] [address] Ho Lopez MD [address] [place] [address] Social History Tobacco Use Types Packs/Day Years Used Date Smoking Tobacco: Every Day Cigarettes Passive Smoke Exposure: Current Alcohol Use Standard Drinks/Week Comments Never 0 [...] encounter Miscellaneous Notes * Telephone Encounter - Ho Egan MD - 11/15/2022 9:12 AM EDT Done previously documented in this encounter Plan of Treatment Upcoming Encounters Date Type Department Care Team (Late st Contact Info) Description 09/25/2024 9:30 AM EDT Medication Management [facility] MED & PEDS [address] [place] [address] Anna Gatica, PharmD [address] [place] [address] documented as of this encounter Visit Diagnoses Not on filedocumented in this encounter Additional Health Concerns Assessment Noted Time PHQ-9 Depression Total Score: 4 08/18/19 23 4:12 PM EST documented as of this encounter Care Teams Customer Assistant Relationship Specialty Start Date End Date Ho Lopez MD [address] [place] [address] PCP - General Internal Medicine 11/14/19 documented as of this encounter
--- OUTSIDE RECORDS SUMMARY | 2024-09-19 17:26 | XMS_ITS | Encounter Summary ---
Author Organization [employer] Address [address] [place] [address] Care Team Providers Care Research Engineer Name Role Phone Ho Lopez MD Primary Care Prov ider Encounter Details Date Type Department Care Team (Late st Contact Info) Description 10/25/2023 Orders Only [facility] MEDICINE [address] [place] [address] Provider, MD [place] Social History Tobacco Use [...] t he electric, gas, oil or water [employer] threatened to shut off services in your [...] [facility] MED & PEDS [address] [place], [place] [phone] Anna Gatica, AnetteD [address] [place] [address] documented as of this encounter Procedures Procedure Name Priority Date/Time Associated Diagnosis Comments HM COLONOSCOPY Routine 03/09/2016 11:15 AM EDT documented in this encounter Results * Hm Colonoscopy (03/09/2016 11:15 AM EDT) us Historical Provider HEALTH MAINTENANCE Final Result documented in this encounter Visit Diagnoses Not on filedocumented in this encounter Additional Health Concerns Assessment Noted Time PHQ-9 Depression Total Score: 4 08/18/19 23 4:12 PM EST documented as of this encounter Care Teams Research Engineer Relationship Specialty Start Date End Date Ho Lopez MD [address] [place] [address] PCP - General Internal Medicine 11/14/19 documented as of this encounter
--- OUTSIDE RECORDS SUMMARY | 2024-09-19 17:26 | XMS_ITS | Clinical Summary ---
Author Organization [employer] Address [address] [place] [address] [address] [place] [address] Care Team Providers Care Flume Ride Operator Name Role Phone Ho Lopez MD Primary Care Prov ider Allergies No known active allergies Medications Acetaminophen 500 MG capsule Take 2 capsules by mouth every 8 (eight) hours. 021 Active ergocalciferol (Vitamin D-2) 1.25 MG (57244 UT) capsule Take 1 capsule by mouth once a week. 022 Active lidocaine (Lidoderm) 5 % patch Place 1 patch on the skin at bed time. 021 Active psyllium (Metamucil Smooth Texture) 58.6 % powder 1 tsp in water up to 3x/day, slowly increase intake, start with 1tsp/day for 3 days, then increase 020 Active linaCLOtide (Linzess) 145 MCG capsule Take 1 capsule (145 mcg) by mouth before breakfast. Do not crush or chew. 30 capsule 11 023 Active estradiol (Estrace) 0.1 MG/GM vaginal cream 1 g vaginally every night x 14 days, the 1 g vaginally twice a week ongoing 42.5 g 1 023 Active butalbital-izabel taminophen-caf feine 50-325-40 MG tabletIndicati ons:Nonintract able episodic headache, unspecified headache type Take 1 tablet by mouth every 6 (six) hours if needed for headaches or migraine. 20 tablet 04/17/2 024 Active Alcohol Swabs (Alcohol Pads) 70 % pads 1 Units 3 times daily. 100 each 3 024 Active metFORMIN (Glucophage) 1000 MG tablet TAKE 1 TABLET BY MOUTH WITH BREAKFAST AND EVENING MEAL 180 tablet 3 Active atorvastatin (Lipitor) 40 MG tablet TAKE 1 TABLET(40 MG) BY MOUTH IN THE MORNING 90 tablet 1 024 Active omeprazole OTC (PriLOSEC OTC) 20 MG EC tabletIndicati ons:Gastroesop hageal reflux disease without esophagitis TAKE 1 TABLET BY MOUTH TWICE A DAY. 180 tablet 3 024 Active fluticasone (Flonase) 50 MCG/ACT nasal spray SHAKE LIQUID AND USE 1 SPRAY IN EACH NOSTRIL IN THE MORNING 48 g Active ondansetron (Zofran) 4 MG tabletIndicati ons:Nonintract able episodic headache, unspecified headache type Take 1 tablet (4 mg) by mouth every 8 (eight) hours if needed for nausea or vomiting. 20 tablet Active empagliflozin (Jardiance) 25 MG Take 1 tablet (25 mg) by mouth Once per day. 90 tablet 3 024 2024 Active metoclopramide (Reglan) 10 MG tabletIndicati ons:Nonintract able episodic headache, unspecified headache type Take 1 tablet (10 mg) by mouth 4 times daily for 10 days. 40 tablet Active azithromycin (Zithromax) 250 MG tabletIndicati ons:Acute cough 500 mg on day 1, 250 mg on day 2 through 5 6 tablet Active SUMAtriptan (Imitrex) 50 MG tablet TAKE 1 TABLET BY MOUTH AT LEAST 2 HOURS BETWEEN DOSES NEEDED FOR MIGRAINE Active propranolol (Inderal) 20 MG tablet Take 1 tablet by mouth Once per day. Active divalproex (Depakote ER) 250 MG 24 hr tablet Take 1 tablet by mouth Once per day. Active amitriptyline (Elavil) 25 MG tablet Take 25 mg by mouth at bedtime. Active naproxen (Naprosyn) 500 MG tabletIndicati ons:Acute non intractable tension-type headache TAKE 1 TABLET BY MOUTH TWICE DAILY WITH FOOD FOR LOWER BACK PAIN 60 tablet 024 Active glipiZIDE (Glucotrol) 10 MG tabletIndicati ons:Type 2 diabetes mellitus without complication, with long-term current use of insulin ([facility]) TAKE 1 TABLET(10 MG) BY MOUTH BEFORE BREAKFAST AND BEFORE THE EVENING MEAL 180 tablet 3 024 Active Ozempic, 0.25 or 0.5 MG/DOSE, 2 MG/3ML solution pen-injector INJECT 0.5 MG SUBCUTANEOUSLY ONCE A WEEK 3 mL 1 025 Active Ventolin HFA 108 (90 Base) MCG/ACT inhalerIndicat ions:Acute cough INHALE 2 PUFFS BY MOUTH EVERY 4 HOURS NEEDED FOR WHEEZING 18 g 025 Active FREESTYLE LITE test stripIndicatio ns:Type 2 diabetes mellitus with obesity (CMS/HCC) ([facility]) TEST BLOOD SUGAR THREE TIMES DAILY 100 strip 11 025 Active glucose blood (FREESTYLE LITE) test stripIndicatio ns:Diabetes mellitus type 2 in obese TEST BLOOD SUGAR THREE TIMES DAILY 100 strip 11 024 2024 Discontinued Active Problems Problem Noted Date Diagnosed Date Nausea & vomiting 01/23/2024 Assessment & Plan (01/23/2024 2:47 PM EDT): Patient continues with episode of nausea/vomiting and abdominal pain, will refer to GI for evaluation Bilious vomiting with nausea 01/23/2024 Type 2 diabetes mellitus wit hout complication, with long-term current use of insulin 01/20/2024 Assessment & Plan (04/09/2024 3:53 PM EDT): Improving, she is on metformin, jardiance, glipizide and ozempic, will increase ozempic dose to 0.5mg, continue low carb/no sugar diet, follow up in 3 months Assessment & Plan (01/25/2024 3:19 PM EDT): Not controlled, she is referring having abdominal pain, bloating, will consider in switching to another GLP1 like ozempic Assessment & Plan (01/20/2024 10:54 AM EDT): Will discontinue trulicity due to abdominal side effects (bloating, nausea), will start ozempic 0.25mg weekly, Acute bilateral low back pain with bilateral sci atica 06/23/2023 Assessment & Plan (06/23/2023 5:40 PM EST): Patient fell at work on 06/08, she injured her left ankle/knee and lowe back, she went to er were imaging studies and workup was negative and was discharged home. Today she came with a cane, complaining of lower back pain, no warning signs, will provide tramadol, told to rest, apply ice/heat pads continue with tylenol/ibuprofen as needed. Chronic idiopathic constipation 05/18/2023 Assessment & Plan (07/19/2023 1:26 PM EST): Improved with linzess, told to increase water intake and fiber in her diet, continue with medication Assessment & Plan (05/18/2023 12:20 PM EST): Patient has tried otc and prescribed treatment without improvement in symptoms, will start linzess, continue high fiber diet and good hydration Neck muscle spasm 08/18/2022 Assessment & Plan (08/18/2022 5:39 PM EST): Will provide cyclobenzaprine, told to apply heat/cold pads, perform stretching exercises Gastroesophageal reflux disease without esophagi tis 07/28/2022 Nonintractable episodic headache 07/28/2022 Assessment & Plan (04/09/2024 3:52 PM EDT): Headaches are more controlled, follow up with neurology, continue with naproxen as needed Assessment & Plan (01/25/2024 3:20 PM EDT): Continue fioricet that seems the only remedy that helps her for now, follow up with neurology Assessment & Plan (01/23/2024 2:45 PM EDT): Followed by neurologyt, she was started on divalproex, will call if no improvement Assessment & Plan (07/19/2023 1:27 PM EST): Will place referral to neurology, no warning signs Assessment & Plan (05/02/2023 9:46 PM EDT): ?? History of chronic migraines ?? Referral to Neurology letter printed today and provided to pt ?? Refill of zofran/promethazine for N/V Assessment & Plan (11/19/2022 1:30 PM EDT): Patient with chronic migraines, peniding referal to neurologist. Responded well to toradol trial. Reports no improvement of symptoms with Fioricet. Will send short term supply of tramadol and start on zofran/promethazine for N/V Assessment & Plan (11/03/2022 2:45 PM EDT): Patient continues with non-intractable headaches, refer fioricet/reglan has help with symptoms mildly, but has been better compared to triptan/nsaid, will renew medication, follow up with neurology Assessment & Plan (09/24/2022 4:26 PM EDT): Reports not responsive to triptans, tramadol, naproxen. Will send trial of fioricet & reglan. If reglan not helpful for nausea can trial zofran. She had bad rapport with neurologist and never followed up with him, will place referral to other location. Reviewed recent CT head with patient. Benign hypertension 06/17/2022 Assessment & Plan (05/18/2023 12:20 PM EST): Controlled, no changes will be made, reinforced low sodium diet and exercise as tolerated Benign paroxysmal positional vertigo 06/17/2022 Hyperlipidemia 06/17/2022 Lactose intolerance 06/30/2015 Diabetes mellitus type 2 in obese 06/18/2013 Overview (06/17/2022): A1C: (Jun 2013): 7.4% (1st time Dx) LDL: 112 BUN and Creat:14 and 0.71 AST/ALT: wnl Assessment & Plan (05/18/2023 12:21 PM EST): Much improved, her A1c was 6.9%, she has been following diet recommendations and adhering to treatment, follow up in 3 months Assessment & Plan (08/18/2022 5:41 PM EST): Not controlled, will increase trulicity to 4.5mg, will refer to DM care nurses for follow up, she is not compliant with diet recomendations Vitamin D deficiency 06/18/2013 Overview (09/24/2022): Jun 2013: Vit D 25 OH: 9 Subclinical hypothyroidism 06/18/2013 Overview (09/24/2022): Jun 2013: TSH: 5.58 FT4: 0.9 (NL) Obese 05/03/2013 Vertigo 05/02/2013 Overactive bladder 05/02/2013 Depression 05/02/2013 Overview (09/24/2022): Follows with psychiatry Anxiety 05/02/2013 Resolved Problems Problem Noted Date Diagnosed Date Resolved Date Acute non intractable tension-type headache 08/18/2022 09/24/2022 Assessment & Plan (08/18/2022 5:41 PM EST): Will place order for a head ct scan Encounters Date Type Department Care Team Description 09/13/2024 Refill [facility] [address] [place], [place] [phone] Ho Lopez MD Diabetes mellitus type 2 in obese 09/13/2024 Refill [facility] [address] [place], [place] [phone] Ho Lopez MD Type 2 diabetes mellitus with obesity (CMS/HCC) ([facility]/HCC) 09/03/2024 Outside Procedure [facility] [address] [place] [address] Rock Beckern, OD Presbyopia of both eyes (Primary Dx) 08/31/2024 10:00 AM EST Office Visit [facility] [address] [place] [address] Rock Beckern, OD Hyperopia of both eyes (Primary Dx) 08/31/2024 Refill [facility] [address] [place] [address] Lashae Dunlap MD 08/28/2024 Telephone [facility] [address] [place] [address] Ho Lopez MD 08/24/2024 Orders Only [facility] [address] [place] [address] Ho Lopez MD Type 2 diabetes mellitus without complication, with long-term current use of insulin ([facility]) (Primary Dx) 08/10/2024 Telephone [facility] [address] [place] [address] Anna Gatica PharmD 07/31/2024 Refill [facility] [address] [place] [address] Lashae Dunlap MD Acute cough 07/31/2024 Refill [facility] [address] [place] [address] Ho Lopez MD 07/05/2024 Refill [facility] [address] [place] [address] Ho Lopez MD Type 2 diabetes mellitus without complication, with long-term current use of insulin (CMS/HCC) 07/02/2024 Refill [facility] [address] [place] [address] Ho Lopez MD Acute non intractable tension-type headache 06/26/2024 1:30 PM EST Office Visit [facility] [address] [place] [id number] Marisa Becker, OD Diabetes type 2, no ocular involvement ([facility]) (Primary Dx); Drusen of left macula; Presbyopia 06/26/2024 Travel 06/25/2024 Orders Only GENERIC EXTERNAL DATA DEPARTMENT Provider, Generic External Data from Last 3 Months Immunizations Name Administration Dates Next Due Influenza Injectable Quadriv alant Preservative Free IIV4 MDCK 08/13/2019 Influenza injectable quadrivalent preservative f ree 05/02/2023,03/26/2022 Influenza, Injectable, MDCK, preservative free 1 Influenza, seasonal, injectable, preservative fr ee 05/02/2013 Pfizer Covid-19 Vaccine 12+ 03/10/2021, Pneumococcal Polysaccharide PPSV23 11/06/2015 Tdap 11/02/2017 Family History Medical History Relation Name Comments Breast cancer Mother's Sister Arthritis Other Asthma Other Diabetes Other Hypertension Other Breast cancer Sister Relation Name Status Comments Mother's Sister Other Sister Social History Tobacco Use Types Packs/Day Years [...] Orientation Straight 05/10/2022 10 :27 AM EDT Last Filed Vital Signs Vital Sign Reading Time Taken Comments Blood Pressure 130/80 06/14/2024 3:34 PM EST Pulse 94 06/14/2024 3:34 PM EST Temperature 36.2 ??C (97.1 ??F) 06/14/2024 3:34 PM ES T Respiratory Rate 20 06/14/2024 3:34 PM EST Oxygen Saturation 99% 06/14/2024 3:34 PM EST Inhaled Oxygen Concentration - - Weight 74.6 kg (164 lb 6 oz) 04/25/2024 2:27 PM EDT Height 160 cm (5' 3 ) 04/25/2024 2:27 PM EDT Body Mass Index 29.12 04/25/2024 2:27 PM EDT Plan of Treatment Upcoming Encounters Date Type Department Care Team (Late st Contact Info) Description 09/25/2024 9:30 AM EDT Medication Management [facility] [address] [place] [address] Anna Gatica, PharmD [address] [place] [address] Health Maintenance Due Date Last Done Comments CT Colonography 1967 Dental Oral Exam 1967 Dental Prophylaxis 1967 Dental X-Ray: Bitewings 1967 Dental X-Ray: Full Mouth 1967 FIT DNA/Cologuard 1967 FIT 1967 FOBT 1967 Sigmoidoscopy 1967 Diabetes: Foot Exam 1977 Alcohol/Substance Use Screening 1979 Hepatitis B Vaccines (1 of 3 - 19+ 3-dose series) 1986 Pneumococcal Vaccine: 50+ Years (2 of 2 - PCV) 11/05/2016 11/06/2015 Zoster Vaccines (1 of 2) 2017 Depression Screening 08/18/2023 08/18/2022, 08/18/19 23 SDOH Screening 08/18/2023 08/18/2022 COVID-19 Vaccine ( season) 2024 08/14/2021, 03/10/2021, 02/17/2021 Diabetes: Hemoglobin A1C 09/23/2024 024, 01/24/2024, 04/12/2023, Additional history exists Diabetes: Urine Protein Screening 01/23/2025 01/24/2024, 01/29/2021, 09/06/2019 Lipid Panel 01/23/2025 01/24/2024, 03/0 12/2022, 01/29/2021 Tobacco Screening 06/29/2025 06/29/2024 Colonoscopy 02/23/2026 03/09/2016 Colorectal Cancer Screening 02/23/2026 Eye Exam 06/26/2026 06/26/2024, 06/10, 06/26/2024, Additional history exists Pap Smear 06/28/2026 06/28/2023 Mammogram 07/10/2026 07/10/2024, 03/11, 03/23/2022, Additional history exists DTaP/Tdap/Td Vaccines (2 - Td or Tdap) 11/03/2027 11/02/2017 Cervical Cancer Screening 06/28/2028 HPV/Cotest 06/28/2028 06/28/2023 RSV Patients and Patients Aged 60 years or older (1 - 1-dose 75+ series) 2042 HIV Screening Completed 01/24/2024 Hepatitis C Screening Completed 01/24/2024, 020 Influenza Vaccine Completed 05/08/2024, , 03/26/2022, Additional history exists HIB Vaccines Aged Out No longer eligi [...] patient's age to complete this topic Meningococcal Vaccine Aged Out No veronica tiffany eligible based on patient's age to complete this topic RSV under 20 months Aged Out No longe r eligible based on patient's age to complete this topic Rotavirus Vaccines Aged Out No longer eligible based on patient's age to complete this topic Procedures Procedure Name Priority Date/Time Associated Diagnosis Comments US ABDOMEN COMPLETE Routine 07/18/2024 9 :27 PM EST BI MAMMOGRAM SCREENING TOMOSYNTHESIS BILATERAL Routine 07/10/2024 9:30 AM EST FL ESOPHAGUS BARIUM SWALLOW WITH AIR Routine 06/27/2024 9:15 AM EST OCT, RETINA - OU - BOTH EYES Routine 06/26/2024 1:30 PM EST Drusen of left macula IMMUNOGLOBULIN A Routine 06/25/2024 3:39 PM EST TISSUE TRANSGLUTAMINASE AB, IGA Routine 06/25/2024 3:39 PM EST T4, FREE Routine 06/25/2024 3:39 PM EST TSH W/REFLEX TO FT4 Routine 06/25/2024 3 :39 PM EST HEMOGLOBIN A1C Routine 06/25/2024 3:39 PM EST ALBUMIN, RANDOM URINE W/CREATININE Routine 01/24/2024 8:20 AM EDT Type 2 diabetes mellitus without complication, with long-term current use of insulin (CMS/HCC) HEPATITIS C AB W/REFL TO HCV RNA, QN, PCR Routine 01/24/2024 12:00 AM EDT Type 2 diabetes mellitus without complication, with long-term current use of insulin (CMS/HCC) HIV 1/2 ANTIGEN/ANTIBODY, FOURTH GENERATION W/RFL Routine 01/24/2024 12:00 AM EDT Type 2 diabetes mellitus without complication, with long-term current use of insulin (CMS/HCC) LIPID PANEL, STANDARD Routine 01/24/2024 12:00 AM EDT Type 2 diabetes mellitus without complication, with long-term current use of insulin (CMS/HCC) HPV MRNA E6/E7 REFLEX TO HPV 16, 18/45 Routine 06/28/2023 1:31 PM EST PAP SMEAR Routine 06/28/2023 1:31 PM EST Cervical cancer screening HM COLONOSCOPY Routine 03/09/2016 11:15 AM EDT from Last 3 Months or Most Recently Relevant to Health Maintenance Results * US Abdomen Complete (07/18/2024 9:27 PM EST) Anatomical Region Laterality Modality Abdomen Ultrasound 07/18/2024 9:27 PM EST Narrative 07/18/2024 9:29 PM EST ? [facility] ?[address] ? [place] [address] ? Ultrasound Report ? Signed ? Patient: Valentine Courtney ?MR#: [id number] ?? [id number] ? : 1965 ?Acct:[id number] ? Age/Sex: 59 / F ?ADM Date: 07/17/24 ? Loc: HO.HMGCX ? Attending Dr: Hoa James MD ? Ordering Physician: Hoa James MD ?? Date of Service: 07/17/24 ?? Procedure(s): US abdomen complete ?? Accession Number(s): [id number] ? cc: Lashae Dunlap MD; Hoa James MD ? CLINICAL HISTORY: R10.9 - Unspecified abdominal pain ? Ultrasound of the abdomen ? Comparison: None ? Findings: ?? The liver is normal in size, measuring 15.5cm. Increased echogenicity ?? without focal lesions. Normal flow is visualized within the portal vein. ?? No intrahepatic biliary ductal dilatation. ?? No cholelithiasis. There is comet tail artifact. No gallbladder wall ?? thickening or pericholecystic fluid. Negative Ulrich's sign. ?? The common bile duct is normal, measuring 0.4cm. ?? Unremarkable limited evaluation of the pancreas. ?? The right kidney is normal in echogenicity and size, measuring 10.1cm. No ?? nephrolithiasis or hydronephrosis. ?? The left kidney is normal echogenicity and size, measuring 9.9cm. No ?? nephrolithiasis or hydronephrosis. ?? The spleen is without focal lesions and normal in size, measuring 9.4cm. ?? The aorta and IVC are unremarkable. ?? No ascites. ? Impression: ?? Increased echogenicity of the liver likely indicates hepatic steatosis. ?? Gallbladder adenomyomatosis. ? This document has been electronically signed by: Richelle Bishop MD ?? on 07/18/2024 21:27:47 ? Dictated By: ?Richelle Coto MD ? Signed By: ?<Electronically signed by Richelle Coto MD in OV> ? 07/18/242127 ? DD/ 26 ? TD/TT: 07/18/242126 ? Aviation Project Engineer: ? Procedure Note Donotuseinterpreter, Image - 07/18/2024 [facility] [address] [place] [address] [place] [address] Ultrasound Report Signed Patient: Valentine Courtney R#: [id number] : 1965Acct:[id number] Age/Sex: 59 / FADM Date: 07/17/24 Loc: HO.HMGCX Attending Dr: Hoa James MD Ordering Physician: Hoa James MD Date of Service: 07/17/24 Procedure(s): US abdomen complete Accession Number(s): [id number] cc: Lashae Dunlap MD; Hoa James MD CLINICAL HISTORY: R10.9 - Unspecified abdominal pain Ultrasound of the abdomen Comparison: None Findings: The liver is normal in size, measuring 15.5cm. Increased echogenicity without focal lesions. Normal flow is visualized within the portal vein. No intrahepatic biliary ductal dilatation. No cholelithiasis. There is comet tail artifact. No gallbladder wall thickening or pericholecystic fluid. Negative Ulrich's sign. The common bile duct is normal, measuring 0.4cm. Unremarkable limited evaluation of the pancreas. The right kidney is normal in echogenicity and size, measuring 10.1cm. No nephrolithiasis or hydronephrosis. The left kidney is normal echogenicity and size, measuring 9.9cm. No nephrolithiasis or hydronephrosis. The spleen is without focal lesions and normal in size, measuring 9.4cm. The aorta and IVC are unremarkable. No ascites. Impression: Increased echogenicity of the liver likely indicates hepatic steatosis. Gallbladder adenomyomatosis. This document has been electronically signed by: Richelle Bishop MD on 07/18/2024 21:27:47 Dictated By: Richelle Coto MD Signed By: <Electronically signed by Richelle Coto MD in OV> 07/18/242127 DD/ 26 TD/TT: 07/18/242126 Aviation Project Engineer: [facility] External Provider IMG PROCEDURES Edited Result - Final * BI Mammogram Screening Tomosynthesis Bilateral (07/10/2024 9:30 AM EST) Anatomical Region Laterality Modality Breast Bilateral Mammography 07/10/2024 9:30 AM EST Narrative 07/21/2024 4:55 PM EST ? [facility] [place] ? [address] ?[place] [address] ? Mammography Report ? Signed with Addenda ? Patient: Courtney,Valentine L ?MR#: [id number] ?? [id number] ? : 1965 ?Acct:[id number] ? Age/Sex: 59 / F ?ADM Date: 12//24 ? Loc: HO.MAMMO ? Attending Dr: Ho Egan MD ? Ordering Physician: Ho Lopez MD ?Res ?? ults: 1Negative ? Date of Service: //24 ?Follow Up: 1 Year From Orig ?? inal Mammogram ? Procedure(s): MM tomosynthesis screening BI ?? Accession Number(s): [id number] ? cc: Lashae Dunlap MD; Ho Lopez MD ?ADDENDUM ? ADDENDUM #1 ? ADDENDUM: ?? The current mammogram has been reviewed and remains BI-RADS as follows ? OVERALL ASSESSMENT: ?? BI-RADS 1 - Negative ? RECOMMENDATION: ?? 1 year F/U ? Electronically signed by: ??Lili Saavedra DO ??08/06/2024 03:17 PM EST ?? RP ? Addendum Dictated By: ?Lili Saavedra, DO ? Addendum Signed By: ? <Electronically signed by Lili Saavedra, DO in OV> ? 08/06/24 1517 ?? Addendum Cosigned By: ? DD/ ? TD/TT: 07/10/24 ? EXAMINATION: ?? MM SCREENING DIGITAL BREAST TOMOSYNTHESIS, BILATERAL ? CLINICAL INFORMATION: ? Screening. Asymptomatic. ? COMPARISON: ?? Mammography: Comparison is made with available priors ? TECHNIQUE: ?? Digital breast mammography with tomosynthesis is performed in both the ?? craniocaudal and mediolateral oblique views along with computer-aided ?? detection (CAD). ? FINDINGS: ?? There are scattered areas of fibroglandular density (ACR BI-RADS breast ?? composition Category b). ? There are no significant masses, abnormal calcifications, or other ?? abnormalities. ? MM/MM tomosynthesis screening BI ?? IMPRESSION: ?? No mammographic evidence of malignancy. ? ASSESSMENT: ? BI-RADS BI-RADS 1 - Negative ? RECOMMENDATION: ?? Routine annual mammography screening. ? 1 year F/U ? This examination should not preclude the clinical evaluation of a ?? suspicious palpable abnormality. ? This patient's information was entered into a reminder system with a ?? target due date for their next mammogram. ? Electronically signed by: ??Lili Saavedra DO ??07/21/2024 04:52 PM EST ?? RP ? Dictated By: ?Lili Saavedra DO ? Signed By: ?<Electronically signed by Lili Saavedra, DO in OV> ? 07/21/242 ? DD/ 0930 ? TD/TT: 07/10/24 0945 ? Aviation Project Engineer: ? Procedure Note Donaudieter, Image - 08/06/2024 [facility] [address] [place] [address] [place] [address] Mammography Report Signed with Addenda Patient: Valentine Courtney LMR#: [id number] : 1965Acct:[id number] Age/Sex: 59 / FADM Date: 07/10/24 Loc: HO.MAMMO Attending Dr: Ho Egan MD Ordering Physician: Ho Lopez ults: 1Negative Date of Service: 07/10/24Follow Up: 1 Year From Orig inal Mammogram Procedure(s): MM tomosynthesis screening BI Accession Number(s): [id number] cc: Lashae Dunlap MD; Ho Lopez MD ADDENDUM ADDENDUM #1 ADDENDUM: The current mammogram has been reviewed and remains BI-RADS as follows OVERALL ASSESSMENT: BI-RADS 1 - Negative RECOMMENDATION: 1 year F/U Electronically signed by: Lili Saavedra DO 08/06/2024 03[facility] Addendum Dictated By: Lili Saavedra DO Addendum Signed By: <Electronically signed by DO Mylene in OV> 08/06/24 1517 Addendum Cosigned By: DD/ TD/TT: 07/10/24 EXAMINATION: MM SCREENING DIGITAL BREAST TOMOSYNTHESIS, BILATERAL CLINICAL INFORMATION: Screening. Asymptomatic. COMPARISON: Mammography: Comparison is made with available priors TECHNIQUE: Digital breast mammography with tomosynthesis is performed in both the craniocaudal and mediolateral oblique views along with computer-aided detection (CAD). FINDINGS: There are scattered areas of fibroglandular density (ACR BI-RADS breast composition Category b). There are no significant masses, abnormal calcifications, or other abnormalities. MM/MM tomosynthesis screening BI IMPRESSION: No mammographic evidence of malignancy. ASSESSMENT: BI-RADS BI-RADS 1 - Negative RECOMMENDATION: Routine annual mammography screening. 1 year F/U This examination should not preclude the clinical evaluation of a suspicious palpable abnormality. This patient's information was entered into a reminder system with a target due date for their next mammogram. Electronically signed by: Lili Saavedra DO 07/21/2024 04:52 PM EST RP Dictated By: Lili Saavedra DO Signed By: <Electronically signed by Lili Saavedra DO in OV> 07/21/24 1652 DD/ TD/TT: 07/10/24 0945 Aviation Project Engineer: us Ho Egan MD IMG BI PROCEDURES Edited Result - Final * FL Esophagus Barium Swallow w/Air (06/27/2024 9:15 AM EST) Anatomical Region Laterality Modality Head, Neck Radiographic Asia ging 06/27/2024 9:15 AM EST Narrative 06/27/2024 4:33 PM EST ? [facility] ?[address] ?[place] [address] ? Fluoroscopy Report ? Signed ? Patient: Valentine Courtney L ?MR#: [id number] ?? [id number] ? : 1965 ?Acct:[id number] ? Age/Sex: 59 / F ?ADM Date: 06/27/24 ? Loc: HO.XRAY ? Attending Dr: Hoa James MD ? Ordering Physician: Hoa James MD ?? Date of Service: 06/27/24 ?? Procedure(s): FL barium swallow with air ?? Accession Number(s): [id number] ? cc: Lashae Dunlap MD; Hoa James MD ? EXAMINATION: ?? XR FLUOROSCOPY UPPER GI WITH AIR ? CLINICAL INFORMATION: ?? Nausea. Abdominal pain. ? COMPARISON: ?? None ? TECHNIQUE: ?? Fluoroscopic air contrast upper GI examination was performed utilizing ?? standard techniques with thin and thick barium and effervescent ?? granules. Numerous spot images were obtained. ? FINDINGS: ?? Dual and single contrast images of the esophagus demonstrate a normal ?? caliber and contour. There is a granular appearance of the esophageal ?? mucosa, suggestive of esophagitis. No strictures, masses, or ?? ulcerations are seen. Esophageal peristalsis was normal. ? A very small type I hiatal hernia is present. No significant ?? gastroesophageal reflux was seen during the course of the examination ?? and on reflux views. ? Dual contrast and single contrast images of the stomach demonstrated a ?? normal contour. The areae gastrica have a thickened/prominent ?? appearance, suggestive of gastritis. No masses or ulcerations are ?? identified. Contrast freely passed into the gastric antrum and duodenal ?? bulb without delay. ? Single and air-contrast images of the duodenal bulb demonstrate no ?? abnormality. The duodenal sweep has a normal appearance, course, and ?? mucosal fold appearance. The imaged proximal jejunum has a normal fold ?? pattern and caliber. ? FLUOROSCOPY TIME: ?? 2 minutes 50 seconds ? Number of Spot Images: 7 ?? Number of Cine: 10 ? DOSE AREA PRODUCT: ?? 2093 uGy-m2 (microgray-meter squared) ? FL/FL barium swallow with air ?? IMPRESSION: ?? 1. Granular appearance of the esophageal mucosa, suggestive of ?? esophagitis. ?? 2. Very small type I hiatal hernia. ?? 3. Prominent/thickened appearance of the areae gastricae, suggestive of ?? gastritis. ? This procedure was performed by Collins Sesay PA-C, and supervised by ?? Dr. Woody ? Electronically signed by: ??Brandon Woody MD ??06/27/2024 04:31 PM EST RP ? Dictated By: ?Collins Sesay ? Signed By: ?<Electronically signed by Collins Sesay in OV> ? 06/27/24 1631 ?<Electronically signed by Brandon Woody MD in OV> ? 06/27/24 1633 ? DD/ 0915 ? TD/TT: 06/27/24 0940 ? Aviation Project Engineer: ? Procedure Note Zoie, Image - 06/27/[address] [address] Fluoroscopy Report Signed Patient: Valentine Courtney LMR#: [id number] : 1965Acct:[id number] Age/Sex: 59 / FADM Date: 06/27/24 Loc: HO.XRAY Attending Dr: Hoa James MD Ordering Physician: Hoa James MD Date of Service: 06/27/24 Procedure(s): FL barium swallow with air Accession Number(s): [id number] cc: Lashae Dunlap MD; Hoa James MD EXAMINATION: XR FLUOROSCOPY UPPER GI WITH AIR CLINICAL INFORMATION: Nausea. Abdominal pain. COMPARISON: None TECHNIQUE: Fluoroscopic air contrast upper GI examination was performed utilizing standard techniques with thin and thick barium and effervescent granules. Numerous spot images were obtained. FINDINGS: Dual and single contrast images of the esophagus demonstrate a normal caliber and contour. There is a granular appearance of the esophageal mucosa, suggestive of esophagitis. No strictures, masses, or ulcerations are seen. Esophageal peristalsis was normal. A very small type I hiatal hernia is present. No significant gastroesophageal reflux was seen during the course of the examination and on reflux views. Dual contrast and single contrast images of the stomach demonstrated a normal contour. The areae gastrica have a thickened/prominent appearance, suggestive of gastritis. No masses or ulcerations are identified. Contrast freely passed into the gastric antrum and duodenal bulb without delay. Single and air-contrast images of the duodenal bulb demonstrate no abnormality. The duodenal sweep has a normal appearance, course, and mucosal fold appearance. The imaged proximal jejunum has a normal fold pattern and caliber. FLUOROSCOPY TIME: 2 minutes 50 seconds Number of Spot Images: 7 Number of Cine: 10 DOSE AREA PRODUCT: 2094 uGy-m2 (microgray-meter squared) FL/FL barium swallow with air IMPRESSION: 1. Granular appearance of the esophageal mucosa, suggestive of esophagitis. 2. Very small type I hiatal hernia. 3. Prominent/thickened appearance of the areae gastricae, suggestive of gastritis. This procedure was performed by Collins Sesay PA-C, and supervised by Dr. Woody Electronically signed by: Brandon Woody MD 06/27/2024 04:31 PM [facility] Dictated By: Collins Sesay Signed By: <Electronically signed by Collins Sesay in OV> 06/27/24 1631 <Electronically signed by Brandon Woody MD in OV> 06/27/24 1633 DD/ 0915 TD/TT: 06/27/24 0940 Aviation Project Engineer: [facility] Exter nal Provider IMG FLUOROSCOPY PROCEDURES Edited Result - Final * (ABNORMAL) TSH with Reflex to Free T4 (06/25/2024 3:39 PM EST) TSH reflex Free T4 4.23(H) 0.32 - 4.0 uIU/mL [facility] 06/25/2024 3:39 PM EST 06/25/2024 3:39 PM EST Generic External Data Provider LAB BLOOD ORDERAB LES Final Result Performing Organization Address [facility] de Phone Number [facility] [address] [place] [phone] * Tissue Transglutaminase Antibody, IgA (06/25/2024 3:39 PM EST) Pathologist [facility] Transglutaminase IgA <1.0 U/mL [facility] Comment:Value Interpretation ----- <15.0 Antibody not detected> or = 15.0 Antibody detectedTHIS TEST WAS PERFORMED AT:[employer] [address] [id number] FRIEND MD 06/25/2024 3:39 PM EST 06/25/2024 3:39 PM EST Generic External Data Provider LAB BLOOD ORDERAB LES Final Result Performing Organization Address [facility] Co de Phone Number [facility] [address] [place] [phone] * T4, Free (06/25/2024 3:39 PM EST) Free T4 (Free Thyroxine) 0.90 0.71 - 1.85 ng/dL [facility] 06/25/2024 3:39 PM EST 06/25/2024 3:39 PM EST Generic External Data Provider LAB BLOOD ORDERAB LES Final Result Performing Organization Address [facility] Co de Phone Number [facility] [address] [place] [phone] * (ABNORMAL) Hemoglobin A1c (06/25/2024 3:39 PM EST) Pathologist [facility] Hemoglobin A1c 11.5(H) <6.0 % [facility] Comment:Hemoglobin A1C Refer ence Range Adults: 4.8 - 6.0 % Non diabetic: < 6.0 % Goal: < 7.0 %Additional Action Suggested: > 8.0 %Note: Hemoglobin A1c results are invalid for patients with abnormal amounts of HbF. Blood transfusions may impact the HbA1c concentration in the patient sample. Estimated Average Glucose 283 mg/dL [facility] Comment:eAG = Estimated ave rage glucose which is %A1C expressed asaverage glucose, using the formula of the O7G-VagrzpsZdhwwzm Glucose study (ADAG), Diabetes Care, Vol.31,#8,Feb. 2007 06/25/2024 3:39 PM EST 06/25/2024 3:39 PM EST Generic External Data Provider LAB BLOOD ORDERAB LES Final Result Performing Organization Address [facility] Co de Phone Number [facility] [address] [place] [phone] * (ABNORMAL) Immunoglobulin A (06/25/2024 3:39 PM EST) Immunoglobulin A 618(A) 47 - 310 mg/dL [facility] Comment:THIS TEST WAS PERFOR MED AT:[address] [place] [phone] FRIEND MD 06/25/2024 3:39 PM EST 06/25/2024 3:39 PM EST us Generic External Data Provider LAB BLOOD ORDERAB LES Final Result Performing Organization Address [facility] Co de Phone Number [facility] [address] [place] [phone] * (ABNORMAL) Albumin, Random Urine W/Creatinine (01/24/2024 8:20 AM EDT) Creatinine, Urine 69.10 mg/dL [facility] Microalbumin Urine 46.0 mg/L H [facility] Microalbum Creatinine Ratio Ur 66.5(H) <30 ug/mg cr [facility] Comment:Albumin/Creatinine R atio Reference Ranges: Normal: < 30 ug/mg creatinine Microalbuminuria: 30 - 300 ug/mg creatinineClinical Albuminuria: > 300 ug/mg creatinine Urine (Urine, Random) 01/24/2024 8:20 AM EDT 01/24/2024 1:57 PM EDT us Ho Egan MD LAB URINE ORDERABL ES Final Result Performing Organization Address [facility] de Phone Number [facility] [address] [place] [phone] * Hepatitis C Antibody with Reflex to HCV, RNA, Quantitative, Real-Time PCR (01/24/2024 12:00 AM EDT) Hepatitis C Antibody Nonreactive Nonreactive [facility] Comment:Antibodies to HCV no t detected; does not exclude early acuteHCV infection. Blood Venous blood specimen / Unknown 01/24/2024 01/24/2024 us Ho Egan MD LAB BLOOD ORDERABL ES Final Result Performing Organization Address [facility] Co de Phone Number [facility] [address] [place] [phone] * HIV-1/2 Antigen and Antibodies, Fourth Generation, with Reflexes (01/24/2024 12:00 AM EDT) HIV AB/AG Nonreactive Nonreactive [facility] Comment:HIV-1 p24 Ag and/or HIV-1/HIV-2 Ab not detected.A test result that is nonreactive does not exclude thepossibility of exposure to or infection with HIV-1 and/orHIV-2. Nonreactive results in this assay for individualswith prior exposure to HIV-1 and/or HIV-2 may be due toantigen and antibody levels that are below the limit ofdetection of this assay.The [employer] HIV Ag/Ab Combo assay result andsupplemental assay results should be interpreted inconjunction with the patient's clinical presentation,history and other laboratory results. If the results areinconsistent with clinical evidence, additional testing issuggested to confirm the result. Blood Venous blood specimen / Unknown 01/24/2024 01/24/2024 us Ho Egan MD LAB BLOOD ORDERABL ES Final Result [facility] [address] [place] [phone] * (ABNORMAL) Lipid Panel, Standard (01/24/2024 12:00 AM EDT) Triglycerides 264(H) <150 mg/dL [facility] Comment:Desirable Triglyceri de: less than 150 mg/dLBorderline High Triglyceride 150-199 mg/dLHigh Triglyceride: 200-499 mg/dLVery High Triglyceride: greater than or equal to 5OO mg/dL Cholesterol 321(H) <200 mg/dL [facility] Comment:Desirable Cholestero l: less than 200 mg/dLBorderline High Cholesterol: 200-239 mg/dLHigh Cholesterol: greater than 239 mg/dL LDL Cholesterol Calculated 219(H) <100 mg/dL [facility] Comment:Desirable LDL: less than 100 mg/dLNear Optimal/Above Optimal LDL: 110- 129 mg/dLBorderline High LDL: 130-159 mg/dLHigh LDL: 160-189 mg/dLVery High LDL: greater than or equal to 190 mg/dL HDL Cholesterol 50 >40 mg/dL [facility] Comment:Desirable HDL: great er than 40 mg/dL Note: This HDL assay may give artificially low results in patients with liver disease. Blood Venous blood specimen / Unknown 01/24/2024 01/24/2024 us Ho Egan MD LAB BLOOD ORDERABL ES Final Result [facility] [address] [place] [phone] * HPV mRNA E6/E7 w/Reflex to HPV Genotypes 16, 18/45 (06/28/2023 1:31 PM EST) HPV nRNA E6/E7 Not Detected Not Detected [facility] Comment:Methodology: Transcr iption-Mediated AmplificationThis assay detects E6/E7 viral messenger RNA (mRNA) from 14high-risk HPV types (16,18,31,33,35,39,45,51,52,56,58,59,66,68).Cervical sources are required for HPV testing.If a vaginal source from a patient who has had atotal hysterectomy with removal of cervix wassubmitted, please contact the testing laboratoryfor alternative testing options.For additional information, please refer tohttp://education.Q Design/faq/DIN093v6(This link if provided for information/educational purposes only.)THIS TEST WAS PERFORMED AT:[address] [place] [phone] FRIEND MD HPV mRNA E6/E7 TNP [facility] HPV 16 RNA [facility] HPV 18/45 RNA [facility] 06/28/2023 1:31 PM EST 06/30/2023 8:20 AM EST us Sade ATKINSON LAB CYTOLOGY ORDERABLES F inal Result [facility] [address] [place] [phone] * Pap Smear (06/28/2023 1:31 PM EST) Swab Cervix uteri structure / Unknown 06/28/2023 1:31 PM EST 06/30/2023 8:30 AM EST Narrative [facility] - 07/07/2023 1:48 PM EST ----- ------- Name: Valentine Courtney ? Age/Sex: 58/F ? : 1965 Unit#: [id number] ?? Attend Dr: ?Re06/28/23 ?Status: PRE REF ? Location: HO.LNP ?Disch: ? ----- ------- SPEC : [id number] ?RECD: 06/30/23 ? STATUS: ??SOUT ? REQ NUM: [id number] ? ZACH: 06/28/23 ? SUBM DR: SADE GONZALEZ CNDio ? ENTERED: ??06/30/23 ?SP TYPE: Pap Smr ?OTHR DR: ? ORDERED: ??Pap Smear ? Interpretation ?? Satisfactory for evaluation. ?? No endocervical cells seen. ?? Mild inflammation. ?? Negative for intraepithelial lesion or malignancy. ?HPV mRNA E6/E7: ?NOT DETECTED ? This assay detects E6/E7 viral messenger RNA (mRNA) from 14 high-risk HPV types (16, 18, ?? 31, 33, 35, 39, 45, 51, 52, 56, 58, 59, 66, 68) ?? HPV testing performed by [facility], [place], [place]. ??See reference laboratory ?? portion of the EMR for entire report. ?Clinical Information LMP: Unknown date Previous PAP test: Unknown date/findings ? Material Received ?? ThinPrep-Cervical ----- ------- Signed (signature on file) ASHLEY Pinon ([facility]) 07/07/23 1348 ? ----- ------- ? END OF REPORT ? Sade Gonzalez M LAB CYTOLOGY ORDERABLES F inal Result [facility] [address] [place] [phone] * Hm Colonoscopy (03/09/2016 11:15 AM EDT) Historical Provider HEALTH MAINTENANCE Final Result from Last 3 Months or Most Recently Relevant to Health Maintenance Insurance [facility] C3 DENTAL-[facility] MEDICAID STAND ADULT [facility] C3 GENERIC WORKERS' COMP DENTAL-[place]ID STAND ADULT Care Teams Flume Ride Operator Relationship Specialty Start Date End Date Ho Lopez MD [address] [place] [address] A[place] Yap [phone] PCP - General Internal Medicine 11/14/19
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
--- OUTSIDE RECORDS SUMMARY | 2024-09-19 17:26 | XMS_ITS | Encounter Summary ---
Author Organization [employer] Address [address] [place] [address] Care Team Providers Care Water Truck Driver Name Role Phone Ho Lopez MD Primary Care Prov ider Reason for Visit * Reason Comments Med Refill Encounter Details Date Type Department Care Team ([facility] st Contact Info) Description 08/31/2024 Refill [facility] PEDS [address] [place] [address] Lashae Dunlap MD [address] [place], [place] [phone] Social History Tobacco Use Types Packs/Day Years [...] 9:30 AM EDT Medication Management [facility] MED & PEDS [address], [place] [phone] Anna Gatica, PharmD [address] [place], [place] [phone] documented as of this encounter Visit Diagnoses Not on filedocumented in this encounter Additional Health Concerns Assessment Noted Time PHQ-9 Depression Total Score: 4 08/18/19 23 4:12 PM EST documented as of this encounter Care Teams Water Truck Driver Relationship Specialty Start Date End Date Ho Lpoez MD [address] [place], [place] [phone] PCP - General Internal Medicine 11/14/19 documented as of this encounter
--- OUTSIDE RECORDS SUMMARY | 2024-09-19 17:26 | XMS_ITS | Encounter Summary ---
Author Organization [employer] Address [address] [place] [address] Care Team Providers Care Waiter/Waitress Take Out Name Role Phone Ho Lopez MD Primary Care Prov ider Reason for Visit * Reason Onset Date Comments Med Refill 09/13/2024 Encounter Details Date Type Department Care Team (Late st Contact Info) Description 09/13/2024 Refill [facility] MED & PEDS [address] [place] [phone] Ho Lopez MD [address] [place] [address] Diabetes mellitus type 2 in obese Social History Tobacco Use Types Packs/Day Years Used Date Smoking Tobacco: Former Passive Smoke Exposure: Never Smokeless Tobacco: Never Alcohol Use Standard Drinks/Week Comments Not Currently 0 (1 standard drink = 0.6 oz pur e alcohol) Depression Answer Date Recorded Patient Health Questionnaire-9 Score 4 08/18/2022 Housing Stability Answer Date Recorded What is your housing situation today? I have kaya mariama 04/28/[address] you li [...] Description 09/25/2024 9:30 AM EDT Medication Management [facility] MED & PEDS [address] [place] [address] Anna Gatica, PharmD [address] [place] [address] documented as of this encounter Visit Diagnoses Diagnosis Diabetes mellitus type 2 in obese Type II or unspecified type diabetes mellitus without mention of complication, not stated as uncontrolled documented in this encounter Additional Health Concerns Assessment Noted Time PHQ-9 Depression Total Score: 4 08/18/19 23 4:12 PM EST documented as of this encounter Care Teams Waiter/Waitress Take Out Relationship Specialty Start Date End Date Ho Lopez MD [address] [place] [address] PCP - General Internal Medicine 11/14/19 documented as of this encounter
== END 2024-09-19 15:20 | disposition home or self-care (01) ==
LOC: HO.HGI 14:48
PROVIDERS: PCP Internal Medicine; Visit Provider Internal Medicine
DX: R11.2 Nausea with vomiting, unspecified (principal); K82.4 Cholesterolosis of gallbladder; K20.90 Esophagitis, unspecified without bleeding; E11.9 Type 2 diabetes mellitus without complications
CPT/HCPCS: 99214

== ENCOUNTER → 2024-09-19 14:48 | Outpatient (BNVA) | payer MEDICAID, SELFPAY | PROVIDERS: PCP Internal Medicine; Visit Provider Internal Medicine | DX: Z12.11 Encounter for screening for malignant neoplasm of colon (principal); R10.9 Unspecified abdominal pain; R11.2 Nausea with vomiting, unspecified; K82.4 Cholesterolosis of gallbladder; K20.90 Esophagitis, unspecified without bleeding; E11.9 Type 2 diabetes mellitus without complications | CPT/HCPCS: 99212 ==

== ENCOUNTER 2024-12-05 17:47 | Outpatient (REF) | payer MEDICAID, SELFPAY ==
--- OUTSIDE RECORDS SUMMARY | 2024-12-05 17:49 | XMS_ITS | Encounter Summary ---
Author Organization [employer] Address [address] [facility] [address] [place] [address] Care Team Providers Care Digital Hardware Design Engineer Name Role Phone Ho Lopez MD Primary Care Prov ider Reason for Visit * Reason Onset Date Comments Referral 06/20/2023 Encounter Details Date Type Department Care Team ([facility] st Contact Info) Description 06/20/2023 Telephone [facility] [address] [place] [address] Ho Lopez MD [address] [place] [address] Referral Social History Tobacco Use Types Packs/Day [...] physical therapy referral. Please contact pt at [phone] * Telephone Encounter - Kate Rodriguez RN [...] to slip and fall at work. Location: [address] [place] [address] Marely Sanderson MA Date: n/a Time: n/a Specialty: [facility] physical therapy DX: lower back and knee pain NEW Referral * Telephone Encounter - Maureen Baum - 06/20/2023 10:21 AM EST Tc from pt requesting a referral for physical therapy due to slip and fall at work. Location: [address] [place] [address] Marely Sanderson MA Date: n/a Time: n/a [...] as of this encounter Care Teams Digital Hardware Design Engineer Relationship Specialty Start Date End Date Ho Lopez MD [address] [place] [phone] PCP - General Internal Medicine 11/14/19 documented as of this encounter
[2024-12-05 18:30] LABS: Influenza A PCR NEGATIVE (Negative); Influenza B PCR NEGATIVE (Negative); Resp Syncy Virus RNA Qual PCR NEGATIVE (Negative); SARS COV2 PCR INHOUSE NEGATIVE (Negative)
== END 2024-12-05 17:48 | disposition home or self-care (01) ==
LOC: HO.CHCLNP 17:47
PROVIDERS: Visit Provider Family Medicine
DX: J32.9 Chronic sinusitis, unspecified (principal)
CPT/HCPCS: 0241U

== ENCOUNTER 2024-12-11 07:32 | Day surgery (SDC) | payer MEDICAID, SELFPAY ==
--- OUTSIDE RECORDS SUMMARY | 2024-11-20 12:29 | XMS_ITS | Encounter Summary ---
Author Organization [employer] Address [address] [place] [address] Care Team Providers Care Daycare Director Name Role Phone Ho Lopez MD Primary Care Prov ider Reason for Visit * Reason Onset Date Comments Prior Authorization 12/15/2023 Encounter Details Date Type Department Care Team (Late st Contact Info) Description 12/15/2023 Telephone [facility] [address] [place] [address] Ho Lopez MD [address] [place] [address] Prior Authorization Social History Tobacco Use Types [...] to see what is going on . Instrument Room Technician contact [facility] Specialist for help to see whatis being delayed, [place] specialist explained order will be submitted today but might be denied due to pt not doing recent lab work needed. Instrument Room Technician understood and explained it and relayed over to patient,pt understood and will be coming in to do labwork on Tuesday. * Telephone Encounter - Maureen Baum - 01/02/2024 10:34 AM EDT Tc from pt requesting for provider to prescribe trulicity again. Please contact pt at [phone] * Telephone Encounter - Tramaine Peter - [...] documented in this encounter Plan of Treatment Not on file documented as of this encounter Visit Diagnoses Not on filedocumented in this encounter Additional Health Concerns Assessment Noted Time PHQ-9 Depression Total Score: 4 08/18/19 23 4:12 PM EST documented as of this encounter Care Teams Daycare Director Relationship Specialty Start Date End Date KimbleHo Lazaro MD [address] [place] [id number] PCP - General Internal Medicine 11/14/19 documented as of this encounter
--- OUTSIDE RECORDS SUMMARY | 2024-11-20 12:29 | XMS_ITS | Encounter Summary ---
Author Organization [employer] Address [address] [facility] 7t [place] [address] Care Team Providers Care Diesel Powerplant Mechanic Helper Name Role Phone Ho Lopez MD Primary Care Prov ider Reason for Visit * Reason Comments Med Refill Encounter Details Date Type Department Care Team ([facility] st Contact Info) Description 11/13/2022 Refill [facility] PEDS [address] [place] [address] Ho Lopez MD [address] [place] [address] Social History Tobacco Use Types Packs/Day Years [...] documented as of this encounter Care Teams Diesel Powerplant Mechanic Helper Relationship Specialty Start Date End Date Ho Lopez MD [address] [place] [phone] PCP - General Internal Medicine 11/14/19 documented as of this encounter
--- OUTSIDE RECORDS SUMMARY | 2024-11-20 12:29 | XMS_ITS | Encounter Summary ---
Author Organization [employer] Address [address] [facility] [address] [place] [address] Care Team Providers Care Configurator Name Role Phone Ho Lopez MD Primary Care Prov ider Reason for Visit * Reason Comments Med Refill Encounter Details Date Type Department Care Team ([facility] st Contact Info) Description 11/18/2024 Refill [facility] MED [facility] PEDS [address] [place] [address] Ho Lopez MD [address] [place] [address] Social History Tobacco Use Types Packs/Day Years [...] as of this encounter Plan of Treatment Not on file documented as of this encounter Visit Diagnoses Not on filedocumented in this encounter Additional Health Concerns Assessment Noted Time PHQ-9 Depression Total Score: 4 08/18/19 23 4:12 PM EST documented as of this encounter Care Teams Configurator Relationship Specialty Start Date End Date Ho Lopez MD [address] [place] [id number] PCP - General Internal Medicine 11/14/19 documented as of this encounter
--- OUTSIDE RECORDS SUMMARY | 2024-11-20 12:29 | XMS_ITS | Encounter Summary ---
Author Organization [employer] Address [address] [facility] 7t [place] [address] Care Team Providers Care Facility Service Manager Name Role Phone Ho Lopez MD Primary Care Prov ider Reason for Visit * Reason Onset Date Comments Referral 06/20/2023 Encounter Details Date Type Department Care Team ([facility] Contact Info) Description 06/20/2023 Telephone [facility] & PEDS [address] [place] [address] Ho Lopez MD [address] [place] [address] Referral Social History Tobacco Use Types Packs/Day [...] physical therapy referral. Please contact pt at [phone] * Telephone Encounter - Kate Rodriguez RN [...] to slip and fall at work. Location: [address] [place] [address] Marely Sanderson MA Date: n/a Time: n/a Specialty: [facility] physical therapy DX: lower back and knee pain NEW Referral * Telephone Encounter - Maureen Baum - 06/20/2023 10:21 AM EST Tc from pt requesting a referral for physical therapy due to slip and fall at work. Location: [address] [place] [address] Marely Sanderson MA Date: n/a Time: n/a [...] documented as of this encounter Care Teams Facility Service Manager Relationship Specialty Start Date End Date Ho Lopez MD [address] [place] [phone] PCP - General Internal Medicine 11/14/19 documented as of this encounter
--- OUTSIDE RECORDS SUMMARY | 2024-11-20 12:29 | XMS_ITS | Encounter Summary ---
Author Organization [employer] Address [address] [facility] 7t [place] [address] Care Team Providers Care Cover Making Machine Operator Name Role Phone Ho Lopez MD Primary Care Prov ider Reason for Visit * Reason Comments Med Refill Encounter Details Date Type Department Care Team ([facility] st Contact Info) Description 08/31/2024 Refill [facility] & PEDS [address] [place] [address] Lashae Dun[place] MD [address] [place] [address] Social History Tobacco Use Types Packs/Day Years [...] documented as of this encounter Care Teams Cover Making Machine Operator Relationship Specialty Start Date End Date Ho Lopez MD [address] [place] [phone] PCP - General Internal Medicine 11/14/19 documented as of this encounter
--- OUTSIDE RECORDS SUMMARY | 2024-11-20 12:29 | XMS_ITS | Encounter Summary ---
Author Organization [employer] Address [address] [facility] [address] [place] [address] Care Team Providers Care Embossing Calender Operator Name Role Phone Ho Lopez MD Primary Care Prov ider Reason for Visit * Reason Comments Med Refill Encounter Details Date Type Department Care Team (Late st Contact Info) Description 02/14/2023 Refill [facility] [address] [place] [address] Ho Lopez MD [address] [place] [address] Diabetes mellitus type 2 in obese ([facility]) Social History Tobacco Use Types Packs/Day Years [...] documented as of this encounter Care Teams Embossing Calender Operator Relationship Specialty Start Date End Date Ho Lopez MD [address] [place] [phone] PCP - General Internal Medicine 11/14/19 documented as of this encounter
--- OUTSIDE RECORDS SUMMARY | 2024-11-20 12:29 | XMS_ITS | Encounter Summary ---
Author Organization [employer] Address [address] [facility] [address] [place] [address] Care Team Providers Care Software Engineer Web Services Name Role Phone Ho Lopez MD Primary Care Prov ider Reason for Visit * Reason Onset Date Comments Med Refill 09/13/2024 Encounter Details Date Type Department Care Team (Late st Contact Info) Description 09/13/2024 Refill [facility] MED & PEDS [address] [place] [address] Ho Lopez MD [address] [place] [address] Diabetes mellitus type 2 in obese Social [...] documented as of this encounter Care Teams Software Engineer Web Services Relationship Specialty Start Date End Date Ho Lopez MD [address] [place] [phone] PCP - General Internal Medicine 11/14/19 documented as of this encounter
--- OUTSIDE RECORDS SUMMARY | 2024-11-20 12:29 | XMS_ITS | Encounter Summary ---
Author Organization [employer] Address [address] [place] [address] [address] [place] [address] Care Team Providers Care Long Chain Quiller Tender Name Role Phone Ho Lopez MD Primary Care Prov ider Reason for Referral * Consultation (Routine) - Authorized Specialty Diagnoses / Procedures Referred By Contac t Referred To Contact Pharmacy Diagnoses Type 2 diabetes mellitus without complication, with long-term current use of insulin (CMS/HCC) Ho Lopez MD [address] [place] [address] Phone: tel: fax: Referral ID Status Reason Start Date Expiration Date Visits Requested Visits Authorized [id number] Authorized Consult and Treat 08/24/2024 08/24/2025 6 6 Encounter Details Date Type Department Care Team ([facility] st Contact Info) Description 08/24/2024 Orders Only [facility] MED [facility] PEDS [address] [place] [address] Ho Lopez MD [address] [place], [place] [id number] Type 2 diabetes mellitus without complication, with [...] as of this encounter Plan of Treatment Scheduled Referrals Name Type Priority Associated Diagnoses [...] documented as of this encounter Care Teams Long Chain Quiller Tender Relationship Specialty Start Date End Date Ho Lopez MD [address] [place] [address] PCP - General Internal Medicine 11/14/19 documented as of this encounter
--- OUTSIDE RECORDS SUMMARY | 2024-11-20 12:29 | XMS_ITS | Clinical Summary ---
Author Organization [employer] Address [address] [facility] 7t [place] [address] Care Team Providers Care Cable Layer Name Role Phone Ho Lopez MD Primary Care Prov ider Allergies No known active allergies Medications Acetaminophen 500 MG capsule Take 2 capsules by mouth every 8 (eight) hours. 021 Active ergocalciferol (Vitamin D-2) 1.25 MG (36118 UT) capsule Take 1 capsule by mouth [...] needed for headaches or migraine. 20 tablet 024 Active atorvastatin (Lipitor) 40 MG tablet TAKE [...] EACH NOSTRIL IN THE MORNING 48 g 024 Active ondansetron (Zofran) 4 MG tabletIndicati ons:Nonintract able episodic headache, unspecified headache type Take 1 tablet (4 mg) by mouth every 8 (eight) hours if needed for nausea or vomiting. 20 tablet 024 Active empagliflozin (Jardiance) 25 MG Take 1 tablet (25 mg) by mouth Once per day. 90 tablet 3 024 2024 Active metoclopramide (Reglan) 10 MG tabletIndicati ons:Nonintract able episodic headache, unspecified headache type Take 1 tablet (10 mg) by mouth 4 times daily for 10 days. 40 tablet 024 Active azithromycin (Zithromax) 250 MG tabletIndicati ons:Acute cough 500 mg on day 1, 250 mg on day 2 through 5 6 tablet Active SUMAtriptan (Imitrex) 50 MG tablet TAKE 1 TABLET BY MOUTH AT LEAST 2 HOURS BETWEEN DOSES NEEDED FOR MIGRAINE Active propranolol (Inderal) 20 MG tablet Take 1 tablet by mouth Once per day. 024 Active divalproex (Depakote ER) 250 MG 24 hr tablet Take 1 tablet by mouth Once per day. Active amitriptyline (Elavil) 25 MG tablet Take 25 mg by mouth at bedtime. 024 Active naproxen (Naprosyn) 500 MG tabletIndicati ons:Acute non intractable tension-type headache TAKE 1 TABLET BY MOUTH TWICE DAILY WITH FOOD FOR LOWER BACK PAIN 60 tablet 024 Active glipiZIDE (Glucotrol) 10 MG tabletIndicati ons:Type 2 diabetes mellitus without complication, with long-term current use of insulin ([facility]) TAKE 1 TABLET(10 MG) BY MOUTH BEFORE BREAKFAST AND BEFORE THE EVENING MEAL 180 tablet 3 024 Active Ventolin HFA 108 (90 Base) MCG/ACT inhalerIndicat ions:Acute cough INHALE 2 PUFFS BY MOUTH EVERY 4 HOURS NEEDED FOR WHEEZING 18 g 025 Active FREESTYLE LITE test stripIndicatio ns:Type 2 diabetes mellitus with obesity ([facility]) ([facility]) TEST BLOOD SUGAR THREE TIMES DAILY 100 strip 11 025 Active Alcohol Swabs (Alcohol Prep) 70 % pads USE DIRECTED THREE TIMES DAILY 100 each 11 025 Active metFORMIN (Glucophage) 1000 MG tablet TAKE 1 TABLET BY MOUTH WITH BREAKFAST AND EVENING MEAL 180 tablet 3 025 Active Ozempic, 0.25 or 0.5 MG/DOSE, 2 MG/3ML solution pen-injector INJECT 0.5 MG SUBCUTANEOUSLY ONCE A WEEK 3 mL 1 025 Active metFORMIN (Glucophage) 1000 MG tablet TAKE 1 TABLET BY MOUTH WITH BREAKFAST AND EVENING MEAL 180 tablet 3 024 2024 Discontinued Ozempic, 0.25 or 0.5 MG/DOSE, 2 MG/3ML solution pen-injector INJECT 0.5 MG SUBCUTANEOUSLY ONCE A WEEK 3 mL 1 025 2024 Discontinued Active Problems Problem Noted Date [...] Encounters Date Type Department Care Team Description 11/18/2024 Refill [facility] PEDS [address] [place] [address] Ho Lopez MD 11/10/2024 Refill [facility] P[facility] [address] [place] [address] Ho Lopez MD 10/23/2024 Telephone [facility] MEDICINE [address] [place] [address] Ho Lopez MD 10/17/2024 Refill [facility] PEDS [address] [place] [address] Ho Lopez MD 10/10/2024 Telephone [facility] [address] [place] [address] Ho Lopez MD 09/25/2024 Telephone [facility] PEDS [address] [place] [address] Anna Gatica, Justine 09/23/2024 Refill [facility] PEDS [address] [place] [address] Ho Lopez MD 09/21/2024 Population Health Risk Score Community [facility] () Department [address] [place] [phone] Provider, Population Health Generic 09/13/2024 Refill [facility]EDS [address] [place] [address] Ho Lopez MD Diabetes mellitus type 2 in obese 09/13/2024 Refill [facility] [address] [place] [address] Ho Lopez MD Type 2 diabetes mellitus with obesity (CMS/HCC) ([facility]) 09/03/2024 Outside Procedure [facility] OPTOM[facility] [address] [place] [address] Marisa Becker, OD Presbyopia of both eyes (Primary Dx) 08/31/2024 10:00 AM EST Office Visit [facility] OPT[facility] [address] [place] [address] Rock Beckern, OD Hyperopia of both eyes (Primary Dx) 08/31/2024 Refill [facility] PEDS [address] [place] [address] Lashae Dunlap MD 08/28/2024 Telephone [facility] MEDICINE [address] [place] [address] Ho Lopez MD 08/24/2024 Orders Only [facility]EDS [address] [place] [address] Ho Lopez MD Type 2 diabetes mellitus without complication, with long-term current use of insulin ([facility]) (Primary Dx) from Last 3 Months Immunizations Name Administration Dates Next Due Influenza Injectable Quadriv alant Preservative Free IIV4 MDCK 08/13/2019 Influenza injectable quadrivalent preservative f ree 05/02/2023,03/26/2022 Influenza, Injectable, MDCK, preservative free 1 Influenza, seasonal, injectable, preservative fr ee 05/02/2013 Pfizer Covid-19 Vaccine 12+ 03/10/2021, 1 Pneumococcal Polysaccharide PPSV23 11/06/2015 Tdap 11/02/2017 Family [...] the past 12 months, has t he [employer], oil or water company threatened to shut [...] 04/25/2024 2:27 PM EDT Plan of Treatment Health Maintenance Due Date [...] Procedure Name Priority Date/Time Associated Diagnosis Comments BI MAMMOGRAM SCREENING TOMOSYNTHESIS BILATERAL Routine 07/10/2024 9:30 AM EST HEMOGLOBIN A1C Routine 06/25/2024 3:39 PM [...] Recently Relevant to Health Maintenance Results * BI Mammogram Screening Tomosynthesis Bilateral (07/10/2024 9:30 AM EST) Anatomical Region Laterality Modality Breast Bilateral Mammography 07/10/2024 9:30 AM EST Narrative 07/21/2024 4:55 PM EST ? [facility] ? [address] ?[place] [address] ? Mammography Report ? Signed with Addenda ? Patient: Courtney,Valentine L ?MR#: [id number] ?? [id number] ? : 1965 ?Acct:[id number] ? Age/Sex: 59 / F ?ADM Date: 12/31/24 ? Loc: HO.MAMMO ? Attending Dr: Ho Egan MD ? Ordering Physician: Ho Lopez MD ?Res ?? ults: 1Negative ? Date of Service: 07/10/24 ?Follow Up: 1 Year From Orig ?? inal Mammogram ? Procedure(s): MM tomosynthesis screening BI ?? Accession Number(s): [id number] ? cc: Lashae Dunlap MD; Ho Lopez [...] 08/06/24 1517 ?? Addendum Cosigned By: ? DD/DT: 07/10 ? TD/TT: 07/10 ? EXAMINATION: ?? MM SCREENING DIGITAL BREAST [...] ??Lili Saavedra DO ??07/21/2024 04:52 PM EST ? Dictated By: ?Lili Saavedra DO ? Signed By: ?<Electronically signed by Lili Saavedra, DO in OV> ? 07/21/24 1652 ? DD/ 0930 ? TD/TT: 07/10/24 0945 ? Kilnman: ? Procedure Note [place], Image - 08/06/2024 [facility] [address] [place], [place] [address] Mammography Report Signed with Jasbir Patient: Valentine Courtney LMR#: [id number] : 1965Acct:[id number] Age/Sex: 59 / FADM Date: 07/10/24 Loc: [facility] Attending Dr: Ho Egan MD Ordering Physician: Ho Lopez ults: 1Negative Date of Service: 07/10/24Follow Up: 1 Year From Orig inal Mammogram Procedure(s): MM tomosynthesis screening BI Accession Number(s): [id number] cc: Lashae Dunlap MD; Ho Lopez MD ADDENDUM ADDENDUM #1 ADDENDUM: The current mammogram has been reviewed and remains BI-RADS as follows OVERALL ASSESSMENT: BI-RADS 1 - Negative RECOMMENDATION: 1 year F/U Electronically signed by: Lili Saavedra DO 08/06/2024 03:17 PM EST RP Addendum Dictated By: Lili Saavedra DO Addendum [...] Saavedra DO in OV> 07/21/24 1652 DD/ 9 TD/TT: 07/10/24944 Kilnman: Ho Egan MD IM BI PROCEDURES Edited Result - Final * (ABNORMAL) Hemoglobin A1c (06/25/2024 3:39 PM EST) Hemoglobin A1c 11.5(H) <6.0 % [facility] Comment:Hemoglobin A1C Refer ence Range Adults: 4.8 - 6.0 % Non diabetic: < 6.0 % Goal: < 7.0 %Additional Action Suggested: > 8.0 %Note: Hemoglobin A1c results are invalid for patients with abnormal amounts of HbF. Blood transfusions may impact the HbA1c concentration in the patient sample. Estimated Average Glucose 283 mg/dL [facility] Comment:eAG = Estimated ave rage glucose which is %A1C expressed asaverage glucose, using the formula of the D1V-VespcojActlhgz Glucose study (ADAG), Diabetes Care, Vol.31,#8,2007 06/25/2024 3:39 PM EST 06/25/2024 3:39 PM EST us Generic External Data Provider LAB BLOOD ORDERAB LES Final Result Performing Organization Address [facility] Co de Phone Number [facility] [address] [place] [phone] * (ABNORMAL) Albumin, Random Urine W/Creatinine (01/24/2024 8:20 AM EDT) Creatinine, Urine 69.10 mg/dL [facility] Microalbumin Urine 46.0 mg/L [facility] Microalbum Creatinine Ratio Ur 66.5(H) <30 ug/mg cr [facility] Comment:Albumin/Creatinine R atio Reference Ranges: Normal: < 30 ug/mg creatinine Microalbuminuria: 30 - 300 ug/mg creatinineClinical Albuminuria: > 300 ug/mg creatinine Urine (Urine, Random) 01/24/2024 8:20 AM EDT 01/24/2024 1:57 PM EDT us Ho Egan MD LAB URINE ORDERABL ES Final Result Performing Organization Address [facility] Co de Phone Number [facility] [address] [place] [phone] * Hepatitis C Antibody with Reflex to HCV, RNA, Quantitative, Real-Time PCR (01/24/2024 12:00 AM EDT) Hepatitis C Antibody Nonreactive Nonreactive [facility] Comment:Antibodies to HCV no t detected; does not exclude early acuteHCV infection. Blood Venous blood specimen / Unknown 01/24/2024 01/24/2024 Ho Egan MD LAB BLOOD ORDERABL ES Final Result Performing Organization Address City/[facility]/ZIP Co de Phone Number [facility] [address] [place] [phone] * HIV-1/2 Antigen and Antibodies, Fourth Generation, with Reflexes (01/24/2024 12:00 AM EDT) [facility] HIV AB/AG Nonreactive Nonreactive [facility] Comment:HIV-1 p24 Ag and/or HIV-1/HIV-2 Ab not detected.A test result that is nonreactive does not exclude thepossibility of exposure to or infection with HIV-1 and/orHIV-2. Nonreactive results in this assay for individualswith prior exposure to HIV-1 and/or HIV-2 may be due toantigen and antibody levels that are below the limit ofdetection of this assay.[employer] HIV Ag/Ab Combo assay result andsupplemental assay results should be interpreted inconjunction with the patient's clinical presentation,history and other laboratory results. If the results areinconsistent with clinical evidence, additional testing issuggested to confirm the result. Blood Venous blood specimen / Unknown 01/24/2024 01/24/2024 us Ho Egan MD LAB BLOOD ORDERABL ES Final Result Performing Organization Address City/[facility]/ZIP Co de Phone Number [facility] [address] [place] [phone] [phone] * (ABNORMAL) Lipid Panel, Standard (01/24/2024 12:00 AM EDT) [facility] Triglycerides 264(H) <150 mg/dL [facility] Comment:Desirable Triglyceri de: less than 150 mg/dLBorderline High Triglyceride 150-199 mg/dLHigh Triglyceride: 200-499 mg/dLVery High Triglyceride: greater than or equal to 5OO mg/dL Cholesterol 321(H) <200 mg/dL [facility] Comment:Desirable Cholestero l: less than 200 mg/dLBorderline High Cholesterol: 200-239 mg/dLHigh Cholesterol: greater than 239 mg/dL LDL Cholesterol Calculated 219(H) <100 mg/dL [facility] Comment:Desirable LDL: less than 100 mg/dLNear Optimal/Above Optimal LDL: 110- 129 mg/dLBorderline High LDL: 130-159 mg/dLHigh LDL: 160-189 mg/dLVery High LDL: greater than or equal to 190 mg/dL HDL Cholesterol 50 >40 mg/dL [facility] Comment:Desirable HDL: great er than 40 mg/dL Note: This HDL assay may give artificially low results in patients with liver disease. Blood Venous blood specimen / Unknown 01/24/2024 01/24/2024 Ho Egan MD LAB BLOOD ORDERABL ES Final Result [facility] [address] [place] [address] [phone] * HPV mRNA E6/E7 w/Reflex to HPV Genotypes 16, 18/45 (06/28/2023 1:31 PM EST) HPV nRNA E6/E7 Not Detected Not Detected [facility] Comment:Methodology: Transcr iption-Mediated AmplificationThis assay detects E6/E7 viral messenger RNA (mRNA) from 14high-risk HPV types (16,18,31,33,35,39,45,51,52,56,58,59,66,68).Cervical sources are required for HPV testing.If a vaginal source from a patient who has had atotal hysterectomy with removal of cervix wassubmitted, please contact the testing laboratoryfor alternative testing options.For additional information, please refer tohttp://education.Groupalia/faq/AIF871c3(This link if provided for information/educational purposes only.)THIS TEST WAS PERFORMED AT:[facility] [place] [id number] FRIEND MD HPV mRNA E6/E7 TNP [facility] HPV 16 RNA TNP [facility] HPV 18/45 RNA TNP [facility] 06/28/2023 1:31 PM EST 06/30/2023 8:20 AM EST us Sade Gonzalez [facility] CYTOLOGY ORDERABLES F inal Result [facility] [address] [place] [phone] [phone] * Pap Smear (06/28/2023 1:31 PM EST) Swab Cervix uteri structure / Unknown 06/28/2023 1:31 PM EST 06/30/2023 8:30 AM EST Narrative [facility] - 07/07/2023 1:48 PM EST ----- ------- Name: Valentine Courtney ? Age/Sex: 58/F ? : 1965 Unit#: [id number] ?? Attend Dr: ?Re06/28/23 ?Status: PRE REF ? Location: HO.LNP ?Disch: ? ----- ------- SPEC : [id number] ?RECD: 06/30/23 ? STATUS: ??SOUT ? REQ NUM: [id number] ? ZACH: 06/28/23 ? SUBM DR: SADE GONZALEZ CNM ? ENTERED: ??06/30/23 ?SP TYPE: Pap Smr [...] 66, 68) ?? HPV testing performed by [facility], [place], [place]. ??See reference laboratory ?? portion of the EMR for entire report. ?Clinical Information LMP: Unknown date Previous PAP test: Unknown date/findings ? Material Received ?? ThinPrep-Cervical ----- ------- Signed (signature on file) ASHLEY Pinon (ASCP) 07/07/23 1348 ? ----- ------- ? END OF REPORT ? us Sade ATK[facility] LAB CYTOLOGY ORDERABLES F inal Result [facility] [address] [place] [phone] * Hm Colonoscopy (03/09/2016 11:15 AM EDT) us Historical Provider HEALTH MAINTENANCE Final Result from Last 3 Months or Most Recently Relevant to Health Maintenance Insurance [facility] C3 DENTAL-[facility] MEDICAID STAND ADULT [facility] C3 GENERIC WORKERS' COMP DENTAL-[facility] MEDICAID STAND ADULT Care Teams Cable Layer Relationship Specialty Start Date End Date Ho Lopez MD [address] [place] [address] [place] [address] PCP - General Internal Medicine 11/14/19
--- OUTSIDE RECORDS SUMMARY | 2024-11-20 12:29 | XMS_ITS | Clinical Summary ---
Author Organization [facility] Address [address] [place] [address] Care Team Providers Care Strategic Planning Specialist Name Role Phone Eloisa Moore PA-C Primary Care Provider [phone] Source Comments PLEASE NOTE, if this patient [...] 05/02/2013 Overview (05/02/2013): Follows with psychiatry Immunizations Immunization Administration Dates Next Due INFLUENZA, SEASONAL, INJECTABLE, [...] Plan of Treatment Not on file Insurance [facility] Member Subscriber Plan / Payer (Ef fective 2013-Present) Name:Shawanda Courtney Relation to Subscriber:Self Name:Shawanda Courtney Payer ID:[id number] Group ID:Not on file Type:Medicaid Address: [address] [phone] Care Teams Strategic Planning Specialist Relationship Specialty Start Date End Date Eloisa Moore PA-C [facility] [place] [address] PCP - General 09/05/18
--- OUTSIDE RECORDS SUMMARY | 2024-11-20 12:29 | XMS_ITS | Encounter Summary ---
Author Organization [employer] Address [address] [facility] [address] [place] [address] Care Team Providers Care Journal Entry Audit Clerk Name Role Phone Ho Lopez MD Primary Care Prov ider Encounter Details Date Type Department Care Team (Late st Contact Info) Description 10/25/2023 Orders Only [facility] MEDICINE [address] [place] [address] ProviderAnsley MD Social History Tobacco Use Types Packs/Day Years [...] on file documented as of this encounter Procedures Procedure [...] documented as of this encounter Care Teams Journal Entry Audit Clerk Relationship Specialty Start Date End Date Ho Lopez MD [address] [place] [phone] PCP - General Internal Medicine 11/14/19 documented as of this encounter
--- OUTSIDE RECORDS SUMMARY | 2024-11-20 12:29 | XMS_ITS | Encounter Summary ---
Author Organization [employer] Address [address] [facility] 7t [place] [address] Care Team Providers Care Office Copy Selector Name Role Phone Ho Lopez MD Primary Care Prov ider Encounter Details Date Type Department Care Team (Late st Contact Info) Description 01/20/2024 Orders Only [facility]EDS [address] [facility] [address] Ho Loepz MD [address] [place] [address] Social History Tobacco Use Types Packs/Day Years [...] documented as of this encounter Care Teams Office Copy Selector Relationship Specialty Start Date End Date Ho Lopez MD [address] [place] [address] PCP - General Internal Medicine 11/14/19 documented as of this encounter
--- OUTSIDE RECORDS SUMMARY | 2024-11-20 12:29 | XMS_ITS | Encounter Summary ---
Author Organization [employer] Address [address] [facility] 7t [place] [address] Care Team Providers Care Manufacturing Baker Name Role Phone Ho Lopez MD Primary Care Prov ider Encounter Details Date Type Department Care Team (Late st Contact Info) Description 05/19/2023 Orders Only [facility] MED & PEDS [address] [place] [address] Ho Lopez MD [address] [place] [address] Social History Tobacco Use Types Packs/Day Years [...] documented as of this encounter Care Teams Manufacturing Baker Relationship Specialty Start Date End Date Ho Lopez MD [address] [place] [phone] PCP - General Internal Medicine 11/14/19 documented as of this encounter
--- OUTSIDE RECORDS SUMMARY | 2024-11-20 12:29 | XMS_ITS | Clinical Summary ---
Author Organization [facility] Address [address] [place] [address] Care Team Providers Care Registered Diet Technician Name Role Phone Beverley Walters MD Primary Care Provider [phone] Surgical History Surgery Date Site/Laterality Comments SECTION PROCEDURE: HISTORICAL DELIVERY; COMMENT: x 3 OTHER SURGICAL HISTORY PROCEDURE: ---- ANO-RECTAL ----; COMMENT: ?unsure Medical History Medical History Date Comments Diverticulitis 10/2015 DX:Diverticuliti s Diabetes ([facility]/HCC V24, CMS/[facility] V28) DX:Diabetes ([facility]) Hypertension DX:Hypertension GERD (gastroesophageal reflux disease) DX:GERD [...] Vaccine (2023-2 5 season) 2024 Influenza Vaccine (Season Ended) 2025 08/13/19 20 HIB Vaccines Aged Out No longer eligi [...] age to complete this topic Meningococcal B Vaccine Aged Out No l onger eligible based on patient's age to complete [...] RESULTING AGENCY - 08/16/2019 11:51 AM EST [id number] THINPREP PAP, IMAGED: NEGATIVE FOR SQUAMOUS INTRAEPITHELIAL [...] Recently Relevant to Health Maintenance Care Teams Registered Diet Technician Relationship Specialty Start Date End Date Beverley Walters MD [address] [phone] PCP - General Internal Medicine 07/11/15
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
--- OUTSIDE RECORDS SUMMARY | 2024-11-20 12:29 | XMS_ITS | Encounter Summary ---
Author Organization [employer] Address [address] [facility] 7t [place] [address] Care Team Providers Care Jack Frame Tender Name Role Phone Ho Lopez MD Primary Care Prov ider Reason for Visit * Reason Comments Med Refill Encounter Details Date Type Department Care Team ([facility] st Contact Info) Description 04/30/2023 Refill [facility] MED & [facility]EDS [address] [place] [address] Ho Lopez MD [address] [place] [address] Social History Tobacco Use Types Packs/Day Years [...] documented as of this encounter Care Teams Jack Frame Tender Relationship Specialty Start Date End Date KimbleHo Lazaro MD [address] [place] [phone] PCP - General Internal Medicine 11/14/19 documented as of this encounter
--- OUTSIDE RECORDS SUMMARY | 2024-11-20 12:29 | XMS_ITS | Encounter Summary ---
Author Organization [employer] Address [address] [place] [address] Care Team Providers Care Marine Diesel Technician Name Role Phone Ho Lopez MD Primary Care Prov ider Encounter Details Date Type Department Care Team (Late st Contact Info) Description 08/05/2022 Orders Only [facility] [address] [place] [address] Ho Lopez MD [address] [place] [address] Diabetes mellitus type 2 in obese (CMS/HCC) [...] HIGH SENSITIVITY <2.7 <3.5 - 17.0 ng/L [facility] Comment:The [employer] high sens itivity Troponin-I results should beused in conjunction with other diagnostic information suchas ECG, clinical observations and information, and patientsymptoms to aid in the diagnosis of ID. 02/23/2023 5:17 PM EDT 02/23/2023 5:21 PM EDT us [facility] External Provider LAB BLO OD ORDERABLES Final Result Performing Organization Address [facility] Co de Phone Number [facility] [address] [place] [address] [phone] * High Sensitivity Troponin I (02/23/2023 2:01 PM EDT) [facility] TROPONIN I HIGH SENSITIVITY <2.7 <3.5 - 17.0 ng/L [facility] Comment:The Phelps high sens itivity Troponin-I results should beused in conjunction with other diagnostic information suchas ECG, clinical observations and information, and patientsymptoms to aid in the diagnosis of ID. 02/23/2023 2:01 PM EDT 02/23/2023 2:05 PM EDT [facility] External Provider LAB BLO OD ORDERABLES Final Result Performing Organization Address [facility] Number [facility] [address] [place] [phone] * B Type Natriuretic Peptide (BNP) (02/23/2023 2:01 PM EDT) [facility] B Type Natriuretic Peptide 50 <100 pg/mL [facility] Comment:For those patients w ho are being treated with Natrecor(nesiritide, recombinant BNP), BNP testing should beperformed at least two hours post treatment in order toensure that only endogenous levels of BNP are detected. 02/23/2023 2:01 PM EDT 02/23/2023 2:05 PM EDT Result [facility] External Provider LAB BLO OD ORDERABLES Final Result Performing Organization Address [facility] Co de Phone Number [facility] [address] [place] [phone] * Magnesium (02/23/2023 2:01 PM EDT) [facility] Magnesium 2.2 1.6 - 2.6 mg/dL [facility] 02/23/2023 2:01 PM EDT 02/23/2023 2:05 PM EDT us Generic External Data Provider LAB BLOOD ORDERAB LES Final Result [facility] [address] [place] [phone] * (ABNORMAL) Basic Metabolic Panel (02/23/2023 2:01 PM EDT) Sodium 142 135 - 145 mmol/L [facility] Potassium 3.9 3.3 - 5.1 mmol/L [facility] Chloride 106 96 - 108 mmol/L [facility] Carbon Dioxide 29 22 - 29 mmol/L [facility] Anion Gap 11(L) 12 - 20 [facility] Urea Nitrogen (BUN) 9 9 - 16 mg/dL [facility] Creatinine, Serum 0.79 0.5 - 1.4 mg/dL [facility] Creatinine Clr Calc Pharmacy 78.3 [facility] Comment:Provided height and weight: 160.02 cm,75.6 kg.eGFR (calculated from the MDRD study equation) and eCrCl(calculated from the Cockcroft-Gault equation) are based ondifferent parameters and may not yield comparable results.If eCrCl result is absurd, please check patient'sheight/weight. Estimated Glomerular Filt Rate >60 [facility] Comment:NOTE: For -Am erican individuals, multiply the result by 1.210.Chronic Kidney Disease: Estimated GFR < 60 mL/min/1.10d2Wktzfl Kidney Disease: Estimated GFR < 15 mL/min/1.73m2 Glucose 138(H) 60 - 115 mg/dL [facility] Calcium 9.8 8.4 - 10.2 mg/dL [facility] 02/23/2023 2:01 PM EDT 02/23/2023 2:05 PM EDT us Generic External Data Provider LAB BLOOD ORDERAB LES Final Result Performing Organization Address [facility]/ZIP Co de Phone Number [facility] [address] [place] [phone] * Hepatic Function Panel (02/23/2023 2:01 PM EDT) Bilirubin, Total 0.4 0.0 - 1.0 mg/dL [facility] Bilirubin, Direct 0.2 0.0 - 0.5 mg/dL [facility] Aspartate Amino Transferase 21 5 - 31 U/L [facility] Alanine Aminotransferase 23 0 - 31 U/L [facility] Total Protein 7.8 6.5 - 8.0 g/dL [facility] Albumin Level 4.1 3.5 - 5.0 g/dL [facility] Alkaline Phosphatase 98 39 - 117 U/L [facility] 02/23/2023 2:01 PM EDT 02/23/2023 2:05 PM EDT [facility] External Provider LAB BLO OD ORDERABLES Final Result Performing Organization Address [facility] de Phone Number [facility] [address] [place] [phone] * Prothrombin Time-INR (02/23/2023 2:01 PM EDT) Prothrombin Time 11.8 11.1 - 13.3 SEC [facility] INTERNATIONAL NORM RATIO 1.0 0.9 - 1.1 [facility] Comment:INTERNATIONAL NORMAL IZED RATIO (INR) REFERENCE [...] PM EDT 02/23/2023 2:05 PM EDT us [facility] External Provider LAB BLO OD ORDERABLES Final Result [facility] [address] [place] [phone] * (ABNORMAL) CBC auto differential (02/23/2023 2:01 PM EDT) White Blood Count 8.0 4.8 - 10.8 X10*3/uL [facility] Red Blood Count 5.18 4.20 - 5.50 X10*6/uL [facility] Hemoglobin 14.5 12.0 - 16.0 g/dl [facility] Hematocrit 44.8 37.0 - 47.0 % [facility] Mean Corpuscular Volume 86.5 80.0 - 98.0 fL [facility] Mean Corpuscular Hemoglobin 28.0 27.0 - 33.0 pg [facility] Mean Corpuscular HGB Conc 32.4 31.0 - 35.0 g/dl [facility] Red Cell Distribution Width 13.3 11.0 - 16.0 % [facility] Platelet Count 291 160 - 400 X10*3/uL [facility] Mean Platelet Volume 10.3 9.4 - 12.3 fL [facility] Neutrophils Percent Auto 53.4 45 - 73 % [facility] Imm Gran Pct Auto 0.3 0.0 - 0.4 % [facility] Lymphocytes Percent Auto 40.2(H) 20 - 40 % [facility] Monocytes Percent Auto 5.3 2 - 11 % [facility] Eosinophils Percent Auto 0.4 0 - 4 % [facility] Basophils Percent Auto 0.4 0 - 2 % [facility] NRBC Pct Auto 0.0 0.0 - 0.2 /100WBC [facility] Neutrophils Absolute Auto 4.3 2.0 - 8.3 x10*3/uL [facility] Imm Gran Abs Auto 0.02 0.00 - 0.03 X10*3/uL [facility] Lymphocytes Absolute Auto 3.2 1.2 - 4.9 X10*3/uL [facility] Monocytes Absolute Auto 0.4 0.1 - 1.2 X10*3/uL [facility] Eosinophils Absolute Auto 0.0 0.0 - 0.4 X10*3/uL [facility] Basophils Absolute Auto 0.0 0.0 - 0.2 X10*3/uL [facility] NRBC Abs Auto 0.000 0.0 - 0.012 X10*3/uL [facility] 02/23/2023 2:01 PM EDT 02/23/2023 2:05 PM EDT [facility] External Provider LAB BLO OD ORDERABLES Final Result Performing Organization Address [facility]/ZIP Co de Phone Number [facility] [address] [place] [phone] * Urinalysis w/reflex microscopic (02/23/2023 2:01 PM EDT) Color Urine Yellow [facility] Appearance Urine Clear [facility] PH 7.0 5.0 - 9.0 [facility] Glucose Urine UA Negative Negative mg/dL [facility] Urine Blood Negative Negative [facility] Specific [place] - Urine 1.010 1.005 - 1.025 [facility] Urine Protein Negative Neg-Trace mg/dL [facility] Urine Ketones Negative Negative mg/dL [facility] Nitrite Urine Negative Negative [facility] Leukocyte Esterase Urine Negative Negative [facility] 02/23/2023 2:01 PM EDT 02/23/2023 2:05 PM EDT Narrative [facility] - 02/23/2023 2:10 PM EDT [id number], Clean Catch [facility] External Provider LAB URI NE ORDERABLES Final Result [facility] [address] [place] [phone] [phone] documented in this encounter Visit Diagnoses Diagnosis Diabetes mellitus type 2 in obese- Primary Type II or unspecified type diabetes mellitus without mention of complication, not stated as uncontrolled documented in this encounter Care Teams Marine Diesel Technician Relationship Specialty Start Date End Date Ho Lopez MD [address] [place] [phone] PCP - General Internal Medicine 11/14/19 documented as of this encounter
--- OUTSIDE RECORDS SUMMARY | 2024-11-20 12:29 | XMS_ITS | Encounter Summary ---
Author Organization [employer] Address [address] [place] [address] Care Team Providers Care Tire Adjuster Name Role Phone Ho Lopez MD Primary Care Prov ider Reason for Visit * Reason Onset Date Comments Appointment Request 06/15/2023 Encounter Details Date Type Department Care Team ([facility] st Contact Info) Description 06/15/2023 Telephone [facility] [address] [place] [address] Ho Lopez MD [address] [place] [address] Appointment Request Social History Tobacco Use Types [...] Tc from patient requesting a appt for SPECIAL AGENT SECRET SERVICE please call patient to schedule appt. documented in this encounter Plan of Treatment Not on file documented as of this encounter Visit Diagnoses Not on filedocumented in this encounter Additional Health Concerns Assessment Noted Time PHQ-9 Depression Total Score: 4 08/18/19 23 4:12 PM EST documented as of this encounter Care Teams Tire Adjuster Relationship Specialty Start Date End Date Ho Lopez MD [address] [place] [phone] PCP - General Internal Medicine 11/14/19 documented as of this encounter
--- OUTSIDE RECORDS SUMMARY | 2024-11-20 12:29 | XMS_ITS | Encounter Summary ---
Author Organization [employer] Address [address] [place] [address] Care Team Providers Care Cupola Tapper Helper Name Role Phone Ho Lopez MD Primary Care Prov ider Reason for Visit * Reason Comments Med Refill Encounter Details Date Type Department Care Team (Late st Contact Info) Description 12/17/2023 Refill [facility] [address] [place] [address] Ho Lopez MD [address] [place] [address] Social History Tobacco Use Types Packs/Day Years [...] documented as of this encounter Care Teams Cupola Tapper Helper Relationship Specialty Start Date End Date Ho Lopez MD [address] [place] [phone] PCP - General Internal Medicine 11/14/19 documented as of this encounter
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
--- OUTSIDE RECORDS SUMMARY | 2024-11-20 12:30 | XMS_ITS | Encounter Summary ---
Author Organization [employer] Address [address] [facility] [address] [place] [address] Care Team Providers Care Bowling Ball Mold Assembler Name Role Phone Ho Lopez MD Primary Care Prov ider Reason for Visit * Reason Onset Date Comments Nurse Triage 05/22/2024 Encounter Details Date Type Department Care Team ([facility] st Contact Info) Description 05/22/2024 Telephone [facility] [address] [place] [address] Ho Lopez MD [address] [place] [address] Nurse Triage Social History Tobacco Use Types [...] several watery stools yesterday. Pt is offered [facility] open till 8pm today. Pt agrees with [...] documented as of this encounter Care Teams Bowling Ball Mold Assembler Relationship Specialty Start Date End Date Ho Lopez MD [address] [place] [phone] PCP - General Internal Medicine 11/14/19 documented as of this encounter
--- NOTE | 2024-12-10 13:14 | HO.ANESPROP2 ---
Documented by User: Karissa Morgan NP 12/10/24 13:14 HPI - Anesthesia Eval Consult details Narrative: 59yo F for Upper Endoscopy Anesthesia Pre-Procedure Meds Is the patient on any of the following meds?: GLP1/DPP4 and SGLT2 Inhib PMFSH Active Problems Active Problems: All Active Problems Esophagitis (Acute) Gallbladder polyp (Acute) Colon cancer screening (Acute) Abdominal pain (Acute) Nausea & vomiting (Acute) Family history of breast cancer (Acute) Bleeding hemorrhoids (Acute) Diabetes mellitus (Acute) Past Medical History Medical History Family history of breast cancer Bleeding hemorrhoids Diabetes mellitus Family History Family History Mother Diabetes Social History Social History Are you a primary primary care nurse practitioner to a significant other at home: No Alcohol intake: never Patient Tobacco Use Status: Current everyday Tobacco user Tobacco use type: Cigarette Cigarettes Per Day: 3 Years Smoked: 39 Use of substances other than those prescribed or required for medical reasons: Yes Substance Use Frequency: Daily Have you been hit, kicked, punched, or otherwise hurt by someone within the past year? If so, by whom?: No Are you DNR?: No Advance Directives: No Advance Directives Information Provided: Yes Patient : No Poor oral hygiene: Yes Meds Allergies Allergy/AdvReac Type Severity Reaction Status Date / Time No Known Allergies Allergy Verified 12/11/24 09:54 [No Known Allergies*] Home Medications ?Medication ?Instructions ?Recorded ?Confirmed ?Last Taken ?Type atorvastatin 40 mg tablet 40 mg PO DAILY 04/21/22 04/21/22 Unknown History metformin 1,000 mg tablet 1,000 mg PO 04/21/22 04/21/22 Unknown History blood sugar diagnostic (Bryon #10 ea 06/25/24 Unknown History Lite Strips) fluticasone propionate 50 1 spray intranasal DAILY 06/25/24 Unknown History mcg/actuation nasal spray,suspension glipizide 10 mg tablet 10 mg PO BID 06/25/24 Unknown History semaglutide 0.25 mg or 0.5 mg (2 0.5 mg subcut QWEEK 06/25/24 11/30/24 History mg/3 mL) subcutaneous pen injector (Ozempic) verapamil 40 mg tablet 40 mg PO BID 06/25/24 Unknown History empagliflozin 25 mg tablet mg PO DAILY 09/19/24 12/07/24 History (Jardiance) linaclotide 145 mcg capsule mcg PO DAILY 09/19/24 Unknown History (Linzess) Assessment and Plan Assessment Anesthesia Assessment: Chart Reviewed Documented by User: Nick Nguyễn MD 12/11/24 11:22 [facility] Past Medical History Medical History Family history of breast cancer Bleeding hemorrhoids Diabetes mellitus Family History Family History Mother Diabetes Family history of problems with anesthesia: No Surgical History History of Problems with Anesthesia: No Social History Social History Are you a primary primary care nurse practitioner to a significant other at home: No Alcohol intake: never Patient Tobacco Use Status: Current everyday Tobacco user Tobacco use type: Cigarette Cigarettes Per Day: 3 Years Smoked: 39 Use of substances other than those prescribed or required for medical reasons: Yes Substance Use Frequency: Daily Have you been hit, kicked, punched, or otherwise hurt by someone within the past year? If so, by whom?: No Are you DNR?: No Advance Directives: No Advance Directives Information Provided: Yes Patient : No Poor oral hygiene: Yes Meds Allergies Allergy/AdvReac Type Severity Reaction Status Date / Time No Known Allergies Allergy Verified 12/11/24 09:54 [No Known Allergies*] Home Medications ?Medication ?Instructions ?Recorded ?Confirmed ?Last Taken ?Type atorvastatin 40 mg tablet 40 mg PO DAILY 04/21/22 04/21/22 Unknown History metformin 1,000 mg tablet 1,000 mg PO 04/21/22 04/21/22 Unknown History blood sugar diagnostic (FreeStyle #10 ea 06/25/24 Unknown History Lite Strips) fluticasone propionate 50 1 spray intranasal DAILY 06/25/24 Unknown History mcg/actuation nasal spray,suspension glipizide 10 mg tablet 10 mg PO BID 06/25/24 Unknown History semaglutide 0.25 mg or 0.5 mg (2 0.5 mg subcut QWEEK 06/25/24 11/30/24 History mg/3 mL) subcutaneous pen injector (Ozempic) verapamil 40 mg tablet 40 mg PO BID 06/25/24 Unknown History empagliflozin 25 mg tablet mg PO DAILY 09/19/24 12/07/24 History (Jardiance) linaclotide 145 mcg capsule mcg PO DAILY 09/19/24 Unknown History (Linzess) Exam Airway Mallampati Class: II TM Dist: <=3cm Neck ROM: Full Denture: Upper and Lower Heart: ok Lungs: ok Assessment and Plan Assessment Anesthesia Assessment: Anesthesia Plan Discussed Final Anesthetic Review Family History of Problems with Anesthesia: No History of Problems with Anesthesia: No NPO: Yes ASA Class: II Final Preanesthetic Review: No Changes in Pt Med Stat, Meds/Allgs Chart Reviewed, Consent Obtained/Reviewed and Anes Risks/Benef Reviewed Patient Risk: Low Procedure Risk: Intermediate Anesthetic Plan Anesthetic Plan: Agree w/ Assess. and Plan and TIVA Disposition: Standard PACU
[2024-12-11 10:01] VITALS: BP 109/74; PULSE 69; RESP 14; TEMP 36.6; O2SAT 97; BMI 28.9
[2024-12-11] MEDS: Lactated Ringers 1,000 ML 100 ML IVCONT (10:04)
[2024-12-11 10:18] LABS: Glucose, Whole Blood 191 mg/dL (60-115)
--- NOTE | 2024-12-11 10:20 | MHC.SHP ---
Pre-Procedural Eval Section A - 24 Hr Update-Section A only Date of Service: 12/11/24 Section B - Complete if H&P > 30 days Chief Complaint: Esophagitis, unspecified without bleeding Details of Present Illness: Medical History Family history of breast cancer Bleeding hemorrhoids Diabetes mellitus Family History Mother Diabetes Present Medications: see Short Stay Collaborative assessment Allergies: Allergies Allergy/AdvReac Type Severity Reaction Status Date / Time No Known Allergies Allergy Verified 12/11/24 09:54 [No Known Allergies*] Review of Systems Review of Systems Comment: Ten point ROS negative Exam Exam Comment: Gen appear: No acute distress HEENT: no icterus Chest: No overt resp distress Abd: soft, nontender, nondistended Psych: Stable affect, answering questions appropriately Neuro: A/Ox3 noted to move all extremities spontaneously Ext: no peripheral edema Plan Diagnosis/Plan: Unchanged I have reviewed the history and physical and performed a pertinent physical examination on my patient. No changes have occurred unless specified. Time Spent With Patient Time: Total time managing care of this patient today ____ minutes.
--- NOTE | 2024-12-11 11:44 | P.OP_ITS ---
Operative Note Operative Note Date of Service: 12/11/24 Narrative: Procedure: Esophagogastroduodenoscopy Endoscopist: Hoa James MD Indication: Esophagitis, abnormal barium swallow Anesthesia Provider: Dr Nick Nguyễn Anesthesia Type: MAC ?? EGD Procedure:?? The procedure, indications, preparation and potential complications were reviewed with the patient, who indicated understanding and gave written informed consent to proceed. A physical exam was performed. The endoscope was introduced through the mouth, and advanced to the second part of duodenum. The mucosa was carefully examined on slow withdrawal of the endoscope. The patient tolerated the procedure well. There were no immediate complications.? ? EGD Findings:? * Esophagus:?A focal patch of heterotopic gastric mucosa was noted in upper esophagus. 2 small linear erosions measuring < 5 mm at the GE junction at 35 cm. Middle and lower esophagus forceps biopsies were obtained to rule out eosinophilic esophagitis. * Stomach:? Erythema and scant heme noted in antrum. Retroflexion was performed in the cardia. Random gastric biopsies were taken to rule out H Pylori infection. * Duodenum:? Erythema and edema noted in the duodenal bulb. Cold forceps biopsies were taken to r/o histology. ? EGD Impressions:? * Inlet patch * Grade A esophagitis (biopsy) * Gastritis (biopsy) * Duodenitis (biopsy) ?? Recommendations:?? * Follow biopsy results. Our office will call or send a letter with results within 7-10 days. * Continue PPI therapy. * Avoid NSAIDs and smoking. Above has been reviewed with the patient.
[2024-12-11 11:50] VITALS: BP 100/69; PULSE 79; RESP 18; TEMP 36.4; O2SAT 91
[2024-12-11 11:52] VITALS: O2SAT 92
[2024-12-11 12:05] VITALS: BP 120/85; PULSE 74; RESP 18; TEMP 36.3; O2SAT 95
== END 2024-12-11 12:50 | disposition home or self-care (01) ==
PROVIDERS: PCP Internal Medicine; Visit Provider Internal Medicine
PROC: 0DJ08ZZ Inspection of Upper Intestinal Tract, Via Natural or Artificial Opening Endoscopic (ICD-10-PCS; CPT 43235; principal; 2024-12-11 10:50)
DX: K20.90 Esophagitis, unspecified without bleeding (principal); K29.70 Gastritis, unspecified, without bleeding; Q39.8 Other congenital malformations of esophagus; K29.80 Duodenitis without bleeding; E11.9 Type 2 diabetes mellitus without complications; Z79.84 Long term (current) use of oral hypoglycemic drugs; Z79.85 Long-term (current) use of injectable non-insulin antidiabetic drugs; Z79.899 Other long term (current) drug therapy; F17.210 Nicotine dependence, cigarettes, uncomplicated
CPT/HCPCS: 43239; 82947; 88305; 88313; 88342; J2003; J2704; J3010

== ENCOUNTER → 2024-12-11 07:32 | Outpatient (BNV) | payer MEDICAID, SELFPAY | PROVIDERS: PCP Internal Medicine; Visit Provider Internal Medicine | DX: K22.89 Other specified disease of esophagus (principal); K20.90 Esophagitis, unspecified without bleeding; K29.70 Gastritis, unspecified, without bleeding; K29.80 Duodenitis without bleeding | CPT/HCPCS: 43239 ==

== ENCOUNTER 2025-01-02 15:35 | Outpatient (AMB) | payer MEDICAID, SELFPAY ==
--- NOTE | 2025-01-02 15:35 | MHC.OFFVIS ---
Intake Visit Reasons: S/P EGD; Dr. James Intake Note: Shawanda presents as a telehealth to go over results to her EGD. CC: bloating, stomach pains, constipation at times and once she is able to go she has loose stools. Social Service Director Required: No Allergies No Known Allergies (No Known Allergies*) Allergy (Verified 12/11/24 09:54) HPI Comments Details: 59 y.o F with hx of DM, who is here for intermittent abd pain, N,V. Reports started noticing diffuse abd pain with feeling of fullness almost 6 months ago. Has occ abd bloating as well. This is post prandial. Once the episode begins it lasts at least 2-3 days. This was around the time when she had suboptimal control of DM with A1c of 14, as well as around the time GLP was started. Reports sugars are better contolled now with range under 180. Has not had sx in the past 1 week. 09/19/24: Here for follow up. Has changed diet by switching to smaller portions and cutting out simple sugars. A1c still 11.5. On ozempic, jardiance, glipizide. On lowest dose ozempic due to side effects. Abd pain is better. No vomiting. Occ nauseous talia when she is constipated on the days she takes the shot. Barium swallow results and US results were already reviewed with the pt. She is taking omeprazole 20 BID for esophagitis. 12/11/24: Inlet patch Grade A esophagitis (biopsy) Gastritis (biopsy) Duodenitis (biopsy)?? Diagnosis A. Duodenum, biopsy: -Duodenal mucosa with preserved villi, no evidence of chronic injury seen on initial levels and no specific change. B. Stomach, random, biopsy: -Gastric body mucosa with reactive changes, features suggesting proton pump inhibitor effect, and focal minimal chronic inactive inflammation; negative for intestinal metaplasia and dysplasia. -Gastric antral mucosa with reactive changes, focal intestinal metaplasia (complete), and minimal chronic inactive gastritis; negative for dysplasia. C. Esophagus, lower, biopsy: Squamous mucosa with hyperplasia and rare intraepithelial eosinophils (up to 1 per high-power field) compatible with esophagitis, and rare detached fragment of columnar epithelium; no intestinal metaplasia seen on initial levels; negative for dysplasia. D. Esophagus, middle, biopsy: Squamous mucosa with no specific change; no columnar mucosa present Additional level with AB/PAS on A shows no evidence of chronic injury. Immunostain for H. pylori on B is negative. Additional level with AB/PAS on C is negative for intestinal metaplasia. Controls stain appropriately. Electronically Signed By: Alyse Portillo 12/17/24 1522 01/02/25: Patient is scheduled for phone telehealth visit to go over EGD results. Patient does not report any abdominal pain, nausea, vomiting. Reassured re findings on EGD and pathology, no precancerous or cancerous changes noted. Negative for H pylori. She continues to smoke marijuana, and was advised that edible marijuana may be more suitable then smoking it to help with healing. She should also avoid NSAIDs. [facility] Medical History Family history of breast cancer Bleeding hemorrhoids Diabetes mellitus Family History Mother Diabetes Social History Are you a primary home care administrator to a significant other at home: No Alcohol intake: never Patient Tobacco Use Status: Current everyday Tobacco user Tobacco use type: Cigarette Cigarettes Per Day: 3 Years Smoked: 39 Review of Systems Const All systems reviewed & are unremarkable except as noted in HPI and below Physical Exam Vital Signs: telephone visit Telehealth Telehealth Telehealth Platform: Telephone Location of provider rendering services: practice address Location of patient: address on file Patient Identification confirmed using: Name, : Yes Telehealth method: voice only Patient verbally consented to treatment: Yes Patient verbally consented to billing insurance company: Yes Patient informed of any privacy concerns related to visit: Yes Minutes spent on Phone/Video with Pt.: 8 Assessment & Plan Assessment & Plan (1) Esophagitis: Code(s): K20.90 - Esophagitis, unspecified without bleeding Category: Medical (2) Gastritis and duodenitis: Code(s): K29.90 - Gastroduodenitis, unspecified, without bleeding (3) Colon cancer screening: Code(s): Z12.11 - Encounter for screening for malignant neoplasm of colon Category: Medical Plan 1. Had esophagitis, gastritis, duodenitis on EGD. Advised against smoking marijuana. Okay to take edible. Plan: -continue omeprazole 20 mg twice a day for 8 weeks, then decrease to once daily indefinitely -Avoid smoking, NSAIDs and alcohol. 2. Colorectal cancer screening Last colonoscopy was in 2015, negative. She will be due for next colonoscopy in 2025. Plan: -follow-up set up for early 2025 to schedule this Coding Level of Care Code Tele Est Pt Level 3 (67021) Diagnoses Esophagitis K20.90 Gastritis and duodenitis K29.90 Colon cancer screening Z12.11
--- OUTSIDE RECORDS SUMMARY | 2025-01-02 18:23 | XMS_ITS | Encounter Summary ---
Author Organization [employer] Address [address] [place] [address] Care Team Providers Care Wellness Rn Name Role Phone Ho Lopez MD Primary Care Prov ider Reason for Visit * Reason Onset Date Comments Referral 06/20/2023 Encounter Details Date Type Department Care Team ([facility] st Contact Info) Description 06/20/2023 Telephone [facility] [address] [place] [address] Ho Lopez MD [address] [place] [address] Referral Social History Tobacco Use Types Packs/Day [...] physical therapy referral. Please contact pt at [phone] * Telephone Encounter - Kate Rodriguez RN [...] to slip and fall at work. Location: [address] [place] [address] Marely Sanderson MA Date: n/a Time: n/a Specialty: [facility] physical therapy DX: lower back and knee pain NEW Referral * Telephone Encounter - Maureen Baum - 06/20/2023 10:21 AM EST Tc from pt requesting a referral for physical therapy due to slip and fall at work. Location: [address] [place] [address] Marely Sanderson MA Date: n/a Time: n/a [...] documented as of this encounter Care Teams Wellness Rn Relationship Specialty Start Date End Date Ho Lopez MD [address] [place] [id number] PCP - General Internal Medicine 11/14/19 documented as of this encounter
== END 2025-01-02 16:26 | disposition home or self-care (01) ==
LOC: HO.HGI 15:35
PROVIDERS: PCP Internal Medicine; Visit Provider Internal Medicine
DX: K20.90 Esophagitis, unspecified without bleeding (principal); K29.90 Gastroduodenitis, unspecified, without bleeding
CPT/HCPCS: 99213

== ENCOUNTER 2025-04-17 15:44 | Outpatient (REF) | payer MEDICAID, SELFPAY ==
[2025-04-17 18:20] LABS: Appearance Urine Clear; Glucose Urine UA Negative (Negative); PH 6.0 (5.0-9.0); Specific Gravity - Urine 1.015 (1.005-1.025)
[2025-04-17 18:26] LABS: MANUAL DIFF FLAG NO
[2025-04-17 18:33] LABS: Hematocrit 43.9 % (37.0-47.0); Hemoglobin 14.2 g/dl (12.0-16.0); Imm Gran Abs Auto 0.03 X10*3/uL (0.00-0.03); Imm Gran Pct Auto 0.3 % (0.0-0.4); Lymphocytes Absolute Auto 3.7 X10*3/uL (1.2-4.9); Mean Corpuscular HGB Conc 32.3 g/dl (31.0-35.0); Mean Corpuscular Hemoglobin 28.1 pg (27.0-33.0); Mean Corpuscular Volume 86.9 fL (80.0-98.0); NRBC Abs Auto 0.000 X10*3/uL (0.0-0.012); NRBC Pct Auto 0.0 /100WBC (0.0-0.2); Platelet Count 300 X10*3/uL (160-400); Red Blood Count 5.05 X10*6/uL (4.20-5.50); White Blood Count 8.9 X10*3/uL (4.8-10.8)
[2025-04-17 18:47] LABS: Alanine Aminotransferase 28 U/L (0-31); Albumin Level 4.3 g/dL (3.5-5.0); Alkaline Phosphatase 109 U/L (39-117); Anion Gap 12 (12-20); Aspartate Amino Transferase 23 U/L (5-31); Blood Urea Nitrogen 8 mg/dL (9-16); Calcium 9.2 mg/dL (8.4-10.2); Carbon Dioxide 25 mmol/L (22-29); Chloride 106 mmol/L (96-108); Estimated Glomerular Filt Rate > 60; Potassium 3.7 mmol/L (3.3-5.1); Sodium 139 mmol/L (135-145); Total Protein 7.4 g/dL (6.5-8.0)
== END 2025-04-17 15:45 | disposition home or self-care (01) ==
LOC: HO.CHCLDS 15:44
PROVIDERS: Visit Provider Internal Medicine
DX: R10.24 Suprapubic pain (principal)
CPT/HCPCS: 36415; 80053; 81001; 85025; 86140

== ENCOUNTER 2025-04-18 08:51 | Outpatient (REF) | payer MEDICAID, SELFPAY ==
[2025-04-18 16:28] LABS: E. coli EAEC Not Detected (Not Detect.); E. coli EPEC Detected (Not Detect.); E. coli ETEC Not Detected (Not Detect.); E. coli STEC Not Detected (Not Detect.); Shigella sp./EIEC Not Detected (Not Detect.)
== END 2025-04-18 08:52 | disposition home or self-care (01) ==
LOC: HO.CHCLNP 08:51
PROVIDERS: Visit Provider Internal Medicine
DX: R19.7 Diarrhea, unspecified (principal)
CPT/HCPCS: 87507